=== PATIENT | female | born 1970 | race Caucasian/White ===

== ENCOUNTER 2018-03-01 10:02 | Day surgery (SDC) | payer OTHER, SELFPAY ==
[2018-03-01 10:26] VITALS: BP 158/89; PULSE 83; RESP 16; TEMP 36.9; O2SAT 96; BMI 36.0
[2018-03-01 10:32] LABS: Internal QC Validated? YES +Cl - CLEAR BKGD
[2018-03-01 10:35] LABS: Pregnancy, Urine Negative Negative
--- NOTE | 2018-03-01 11:15 | IMM_PTH ---
PATIENT: ANA MARIA MONTEJO LOC: EN U#:[id number] AGE/SX: 47/F ROOM: RE03/01/[address]: Dr. Maddy Dick MD : 1970 BED: DIS: 03/01/2018 SPEC #: [id number] RECD: 03/01/18 12:54 STATUS: ANNEL REQ #: [id number] THADDEUS: 03/01/18 11:[address]: Maddy Dick DEPT: IMMUNOHISTOCHEMISTRY RECD BY: Landy Zhu ENTERED: 03/01/18 12:54 SP TYPE: IMMUNO OTHR DR: DO Rosita Henry Tissues: A - Stomach, NOS Procedures: H Pylori (initial) PHYSICIAN & INSTITUTION [place] [id number] SPECIMEN INFORMATION: Tissue Source: A ? Antral biopsy Clinical Info: Constipation, blood in stool, GERD Specimen Number: [id number] CPT code: 09597 METHODOLOGY: Deparaffinized sections of prefer/formalin-fixed tissue or PAP/DQ stained slides are incubated with monoclonal/polyclonal antibodies/oligonucleotide probes. Localization is made via biotin free immunoperoxidase method. Appropriate controls are performed and reacted as expected. Results on target cell population are indicated in the following table: RESULTS: ANTIBODY / CLONE RESULT Block A H Pylori (polyclonal) negative These tests were developed and their performance characteristics determined by [facility]. They may not have been cleared or approved by the U.S. Food and Drug Administration. The FDA has determined that such clearance or approval is not necessary. INTERPRETATION: A. Antral biopsy: Negative for Helicobacter pylori organisms. AM:brenden 03/02/18
--- NOTE | 2018-03-01 11:15 | GASB_PTH ---
PATIENT: ANA MARIA MONTEJO LOC: EN U#:[id number] AGE/SX: 47/F ROOM: RE03/01/[address]: Dr. Maddy Dick MD : 1970 BED: DIS: 03/01/2018 SPEC #: [id number] RECD: 03/01/18 11:47 STATUS: ANNEL REAdelaida #: [id number] THADDEUS: 03/01/18 11:[address]: Maddy Dick DEPT: SURGICAL PATHOLOGY RECD BY: Faustino Rousseau ENTERED: 03/01/18 13:07 SP TYPE: Gastric Bx CLARISSA DR: Dr. Rosita Canas, DO Rosita Canas Tissues: A - Gastric mucous membrane B - Gastric mucous membrane Procedures: Surgery Specimen Level IV HEADER OPERATION: Colonoscopy, EGD PRE-OP DIAGNOSIS: Constipation, blood in stool, GERD TISSUE SUBMITTED: A ? Antral biopsy for H. pylori and path, B ? GE junction biopsy MICROSCOPIC DIAGNOSIS A. Gastric antrum, biopsy: Mild chronic gastritis. B. Gastroesophageal junction, biopsy: Fragment of gastric mucosa with mild chronic inflammation. AM:brenden 03/02/18 COMMENT A. The results of immunohistochemistry for Helicobacter pylori will be reported separately ([id number]). B. Squamous mucosa is not represented in the biopsy. Clinical correlation is suggested. MICROSCOPIC DESCRIPTION Slides are reviewed. GROSS DESCRIPTION A - Received in fixative is one container labeled with the patient's name and designated antral biopsy. The specimen consists of one irregular fragment of light calles soft tissue that measures 0.3 x 0.3 x 0.1 cm. The specimen is totally submitted in one cassette. B - Received in fixative is one container labeled with the patient's name and designated GE junction biopsy. The specimen consists of one irregular fragment of light calles soft tissue that measures 0.3 x 0.3 x 0.1 cm. The specimen is totally submitted in one cassette. / SJ:brenden 03/01/18 TC:3 [facility]: [id number] x2
[2018-03-01 11:27] VITALS: BP 113/69; BP 158/89; PULSE 72; RESP 16; TEMP 37.3; O2SAT 99
[2018-03-01 11:30] VITALS: BP 118/70; BP 158/89; PULSE 69; RESP 16; O2SAT 100
[2018-03-01 11:35] VITALS: BP 136/87; BP 158/89; PULSE 72; RESP 18; O2SAT 98
[2018-03-01 11:41] VITALS: BP 141/87; BP 158/89; PULSE 68; RESP 18; O2SAT 100
--- NOTE | 2018-03-01 11:50 | OP.PCM_ITS ---
Report of Operation Date of Procedure: 03/01/18 Pre-Operative Diagnosis: GERD, bright red blood per rectum, hemorrhoids Post-Operative Diagnosis: GERD/gastritis, large grade 4 internal hemorrhoid at left lateral cushion Surgery/Procedure Performed:: EGD with biopsy, colonoscopy Type of Anesthesia:: MAC Anesthesiologist: Oracio Rojas Specimen's removed: 1. Antral biopsy, 2. GE junction biopsy Estimated Blood Loss (mL): Minimal Description of Procedure: Procedure: EGD with biopsy After obtaining informed consent, the endoscope was passed under direct visualization. Throughout the procedure, patient's blood pressure, pulse, oxygen saturations were monitored continuously by anesthesia. The endoscope was introduced through the mouth and advanced to the 2nd part of the duodenum. The upper GI endoscopy was accomplished without difficulty. Patient tolerated procedure well. Findings: Mild erythematous mucosa found gastric antrum as well as mild change of mucosa at the GE junction. Biopsies were taken from both areas with cold biopsy for histology. Estimated blood loss was minimal. The duodenum was normal. Impression: 1. GERD 2. Gastritis- biopsied. 3. Normal examined duodenum Recommendations: Await biopsies Continue Nexium 40 mg p.o. daily prescription sent to [facility] Procedure: Colonoscopy After reviewing the risks benefits, the patient was deemed in satisfactory condition to undergo procedure. After obtaining informed consent, the scope was passed under direct visualization. Throughout the procedure, the patient's blood pressure pulse and position saturations were monitored continuously anesthesia. The colonoscope was introduced through the anus and advanced to the cecum, identified by the appendiceal orifice, IC valve and transillumination. The colonoscopy was performed without difficulty. The patient tolerated procedure well. Quality of bowel prep was good. Findings: The perianal and digital rectal exam revealed large by 2 x 3 cm grade 4 left lateral cushion internal hemorrhoid that appeared multi-polypoid. The colon (entire examined portion) appeared normal. Retroflexed view of the distal rectum and anal verge was normal and showed no anal or rectal abnormalities, as the internal hemorrhoid was a grade 4. Impression: 1. The entire colon is normal. 2. Large grade 4 left lateral cushion internal hemorrhoid that appears to be multipolypoid. Recommendations: Discussed with patient recommend hemorrhoidectomy patient is agreeable. Will call and schedule patient. Repeat colonoscopy in 10 years for screening purposes - Complications none
[2018-03-01 12:13] VITALS: BP 158/89
== END 2018-03-01 12:14 | disposition home or self-care (01) ==
LOC: EN 10:02 → AC 10:04
PROVIDERS: Family Provider Family Medicine; PCP Family Medicine; Visit Provider Surgery
PROC: 0DJD8ZZ Inspection of Lower Intestinal Tract, Via Natural or Artificial Opening Endoscopic (ICD-10-PCS; CPT 45378; principal; 2018-03-01 11:10)
DX: K29.50 Unspecified chronic gastritis without bleeding (principal); K64.8 Other hemorrhoids; K21.9 Gastro-esophageal reflux disease without esophagitis; K59.00 Constipation, unspecified; K62.5 Hemorrhage of anus and rectum; F32.9 Major depressive disorder, single episode, unspecified; F41.9 Anxiety disorder, unspecified; I10 Essential (primary) hypertension; F17.200 Nicotine dependence, unspecified, uncomplicated
CPT/HCPCS: 43239; 45378; 81025; 88305; 88342; J7120

== ENCOUNTER 2018-03-06 11:15 | Day surgery (SDC) | payer OTHER, SELFPAY ==
[2018-03-06] VITALS (7 sets, daily range): BP systolic 136–158; BP diastolic 74–96; PULSE 64–94; RESP 16; TEMP 36.4–37; O2SAT 96–100; BMI 36.6; BMI 34.0
[2018-03-06 11:59] LABS: Internal QC Validated? YES +Cl - CLEAR BKGD; Pregnancy, Urine Negative Negative
--- NOTE | 2018-03-06 12:33 | PCM.HP.STD ---
History of Present Illness Date of Admission: 03/06/18 The patient is a 47 year old F presents for exam under anesthesia and excision of anal lesion. Patient underwent EGD and colonoscopy 03/01 2018. EGD only showed some mild gastritis and colonoscopy was normal except for she did have large polypoid lesion protruding from her anus which appeared to be coming from her left lateral cushion it did appear to be multi-polypoid and there was also thrombosed hemorrhoid in the mix. Patient states she had this since about 2011 and states been about the same size she has had bleeding off and on with this especially with wiping however this December was worse where she had a larger amount of bleeding. She has not had any more recent large amounts of bleeding from this lesion. Patient states that pain at this site can get up to an 03/03 occasionally. Past Medical History Medical History: Medical History (Last Reviewed 02/03/18 @ 13:11 by Melody Dugan) Ectopic O00.90 HTN (hypertension) I10 Allergies morphine Adverse Reaction (Verified 03/03/18 16:40) Nausea/Vom/Diarrhea Home Medications: Ambulatory Orders Medication Instructions Recorded buspirone 10 mg tablet 10 mg PO BID 02/03/18 clonazepam 0.5 mg tablet 0.5 mg PO BID PRN 02/03/18 hydrochlorothiazide 25 mg tablet 25 mg PO QAM 02/03/18 Esomeprazole Mag Trihydrate 20 mg PO BID 02/27/18 [Nexium] Thrive Vitamin 1 patch TOPICAL DAILY 02/27/18 Surgical History: Surgical History (Last Reviewed 02/03/18 @ 13:11 by Melody Dugan) S/P laparoscopic cholecystectomy Z90.49 S/P tonsillectomy Z90.89 S/P wrist surgery Z98.890 Smoking Status: Current every day smoker Review of Systems Constitutional: Denies: Fever HEENT: Denies: Difficulty Swallowing Cardiovascular: Denies: Chest Pain Respiratory: Denies: Shortness of Breath, Shortness of breath at rest Gastrointestinal: Denies: Abdominal Pain, Vomiting Genitourinary: Denies: Dysuria VTE Information - Inpt Only VTE Present on Admission: Yes VTE Mechan Device Prophylaxis: SCD's VTE Pharm Prophylaxis ordered?: No Reason prophylaxis not ordered:: Treatment Not Indicated - Physical Exam General: Alert, Oriented x3, Cooperative, No apparent distress HEENT: Atraumatic, Normocephalic Lungs: Normal air movement Cardiovascular: Regular rate Abdomen: Soft, Non Tender - No guarding or peritoneal signs, Non-Distended, - - Rectal exam deferred Extremities: No clubbing, No cyanosis, No edema Vital Signs Temp Pulse Resp BP Pulse Ox 97.7 F L 74 16 155/93 H 100 03/06/18 11:41 03/06/18 11:41 03/06/18 11:41 03/06/18 11:41 03/06/18 11:41 Oxygen Delivery Method Room Air Weight: 240 lb 15.444 oz Body Mass Index (BMI) 36.6 Laboratory Tests Past 24 Hrs 03/06/18 11:30 Urine Test Negative Assessment/Plan 47-year-old female with large protruding multi-polypoid lesion that appears to be be arising from the left lateral hemorrhoidal cushion 1. Plan for exam under anesthesia and excision of anal lesion as this appears to be arising from hemorrhoidal cushion however it does not appear to be a typical internal hemorrhoid. Discussed the procedure along with risks including but not limited to bleeding, infection, stenosis of the anal canal, postoperative pain/discomfort, incontinence, and anesthesia. Patient and her no further questions at this time. Recommended postop sits baths 2-4 daily along with dibucaine ointment application. Maddy Dick M.D. Pager: [phone] [facility] [address] [place] [address], [facility], [address] [place] [address] Office: [phone]
--- NOTE | 2018-03-06 12:55 | PCM.DC.GS ---
Discharge Diet: Light diet - advance as tolerated Discharge Activity: May not drive while taking narcotic pain medications. Call your doctor if your incision/area has: Continuous Slow Oozing, Sudden Increased Bleeding, Increased Pain/ Swelling, Increased Redness, Foul Smelling Discharge, Swelling at the incision site Call your doctor if you observe: Fever of 101 or Higher Additional Instructions: Okay to take ibuprofen along with the Percocet. Avoid Tylenol since there is artery Tylenol in the Percocet. Percocet can cause constipation recommend taking daily stool softener i.e. Colace while taking the pain meds. Recommend starting some MiraLAX today if no bowel movement. Recommend taking sitz baths 2-4 times daily especially after bowel movements also applying the dibucaine ointment to the anal area as needed 2-4 times a day Allergies/Adverse Reactions: Allergies morphine Adverse Reaction (Verified 03/03/18 16:40) Nausea/Vom/Diarrhea Medications to take at Discharge buspirone 10 mg tablet 10 mg PO BID 02/03/18 clonazepam 0.5 mg tablet 0.5 mg PO BID PRN 02/03/18 hydrochlorothiazide 25 mg tablet 25 mg PO QAM 02/03/18 Esomeprazole Mag Trihydrate [Nexium] 20 mg PO BID 02/27/18 Thrive Vitamin 1 patch TOPICAL DAILY 02/27/18 Oxycodone HCl/Acetaminophen [Percocet 5/325] 1 - 2 tablet PO Q6H PRN PRN 5 Days #40 tablet 03/06/18 The following prescriptions were given: Oxycodone HCl/Acetaminophen [Percocet 5/325] 1 - 2 tablet PO Q6H PRN PRN 5 Days #40 tablet PRN Reason: Pain Primary Care Physician: Rosita Canas DO [Primary Care Provider] - Test Results: Test results from this visit will be discussed in further detail at your follow-up appointment, if applicable. Please Follow Up With: Maddy Dick MD - After 5:00/weekends call [phone] with any concerns When: Call the office for a follow-up appointment in 2-3 weeks. Proposed Discharge Date: 03/06/18
--- NOTE | 2018-03-06 13:00 | LES_PTH ---
PATIENT: ANA MARIA MONTEJO LOC: [facility] U#:[id number] AGE/SX: 47/F ROOM: RE03/06/[address]: Dr. Maddy Dick MD : 1970 BED: DIS: 03/06/2018 SPEC #: [id number] RECD: 03/06/18 14:43 STATUS: ANNEL REAdelaida #: [id number] THADDEUS: 03/06/18 13:[address]: Maddy Dick DEPT: SURGICAL PATHOLOGY RECD BY: Willy Leonard ENTERED: 03/07/18 06:52 SP TYPE: Lesion OTHR DR: Dr. Rosita Canas, DO Rosita Canas Tissues: A - Skin of anus B - Skin appendage, NOS Procedures: Surgery Specimen Level III Surgery Specimen Level IV HEADER OPERATION: Rectal exam under anesthesia, excision of anal lesion PRE-OP DIAGNOSIS: Anal lesion TISSUE SUBMITTED: A ? Anal lesion, stitch toledo stalk, B ? Anal tag MICROSCOPIC DIAGNOSIS A. Anal lesion, excision: Benign fibroepithelial polyp with reactive change, hyperkeratosis and mild chronic inflammation. Focal ulceration with associated acute and chronic inflammation and granulation. B. Anal tag, excision: Benign fibroepithelial polyp with minimal inflammation. AM:brenden 03/08/18 COMMENT Case has been reviewed in consultation with Dr. Singh who concurs with the above diagnosis. IDC:SJ MICROSCOPIC DESCRIPTION Slides are reviewed. GROSS DESCRIPTION A - Received in fixative is one container labeled with the patient's name and designated anal lesion. The specimen consists of a polypoid piece of calles-white skin measuring 3.5 x 3 x 2.5 cm. A suture is present marking stalk. The base of the stalk is inked black. The specimen is serially sectioned and submitted entirely in seven cassettes. Cassettes 1-3 contain the portion of the lesion including the stalk. B - Received in fixative is one container labeled with the patient's name and designated anal tag. The specimen consists of a polypoid piece of calles-white skin measuring 1 x 0.5 x 0.2 cm. The specimen is inked and submitted entirely in one cassette. / MICHAEL:brenden 03/07/18 TC:1 CPT: 87034, 19893
[2018-03-06] MEDS: Bupiv/Epi 0.5% Mpf 30 ML Vial (13:33)
[2018-03-06] MEDS: Lubricating Jelly 60 GM Tube 30 GM TOPICAL (13:33)
[2018-03-06] MEDS: Dibucaine 30 GM Tube 1 APPLIC (13:50)
--- NOTE | 2018-03-06 13:52 | PCM.OPRPT ---
Report of Operation Date of Procedure: 03/06/18 Pre-Operative Diagnosis: Anal lesion protruding from hemorrhoidal LL (posterior) cushion Post-Operative Diagnosis: Same Surgery/Procedure Performed:: Exam under anesthesia, excision of anal lesion and anal skin tag Type of Anesthesia:: MAC Anesthesiologist: Ilir Escamilla Specimen's removed: 1 Anal lesion, 2 anal skin tag Estimated Blood Loss (mL): 10 cc Fluids Replaced: 600cc Description of Procedure: The patient was brought into the operating room and general anesthesia was induced. She was placed in prone jackknife lithotomy position. A timeout was completed verifying correct patient, procedure, site, mposition, and special equipment prior to beginning the procedure. The buttocks were taped apart. Perineum was prepared prepped and draped in standard sterile fashion. Local anesthesia was injected as a perianal nerve block-0.5% Marcaine with epi total of 20 mL. Anus carefully dilated. Small Hill-Gar retractor was introduced and 3 marginal pedicles identified. She was noted to have prolapsed anal lesion looks to be coming from possible left lateral cushion a little bit more posterior at 12:00. Each the pedicle of this lesion was excised. 2-0 chromic suture was placed at the base of the pedicles and retracted externally to exteriorize the hemorrhoidal pedicles. An elliptical incision was made extending from perianal skin to anal rectal ring including both internal and external hemorrhoids and excising a minimal amount of anoderm. Cautery was used to separate the hemorrhoid from the underlying tissue. Careful not to involve any of the sphincter muscle. The pedicle was indicated from the base and sent to pathology. Hemostasis was achieved using electrocautery. following the hemostasis the skin and mucosal incisions were closed with the running lock stitch of 2-0 chromic. Anal lesion was multi-polypoid measuring 3.5 cm x 2.5 cm x 2 cm. An additional anal tag at about 11:00 (posterior on the left) was also taken with the cut on electrocautery. A small Surgifoam with dibucaine was placed in the anus. A gauze pad tucked between the gluteal folds. The patient was extubated. And the patient tolerated procedure well and was extubated and taken to the postanesthesia care unit in stable condition. - Complications none
--- NOTE | 2018-03-06 21:47 | PCM.PN.BLA ---
Progress Note 47-year-old female presented to the ER status post excision of anal lesion and anal skin tag due to tripping blood from rectum. Patient thought that a stitch may have also came out. Patient denies much pain after surgery it is tolerable with only ibuprofen and she has been taking stool softeners. Patient had a nap and when she awoke at 8 PM and went to urinate she did have blood that was dripping in the toilet, dark red. On exam patient's anal lesion excision site was intact and the Surgifoam was still in place however distal to that was the site of the anal skin tag which had a dried clot on it no active bleeding at this time. The area was cleaned with Betadine and 2 simple interrupted sutures of 3-0 chromic were placed over the area of the anal skin tag after local anesthesia of 2 cc of lidocaine 1%. Patient tolerated procedure well and left the ER and stable condition. Patient will follow-up as planned in 2-3 weeks postoperatively. Patient and her had no further questions at this time. Maddy Dick M.D. Pager: [phone] [facility] [address] [place] [address], [address] [place] [address] Office: [phone]
--- NOTE | 2018-03-06 21:50 | PN_ITS ---
Progress Note 47-year-old female presented to the ER status post excision of anal lesion and anal skin tag due to tripping blood from rectum. Patient thought that a stitch may have also came out. Patient denies much pain after surgery it is tolerable with only ibuprofen and she has been taking stool softeners. Patient had a nap and when she awoke at 8 PM and went to urinate she did have blood that was dripping in the toilet, dark red. On exam patient's anal lesion excision site was intact and the Surgifoam was still in place however distal to that was the site of the anal skin tag which had a dried clot on it no active bleeding at this time. The area was cleaned with Betadine and 2 simple interrupted sutures of 3-0 chromic were placed over the area of the anal skin tag after local anesthesia of 2 cc of lidocaine 1%. Patient tolerated procedure well and left the ER and stable condition. Patient will follow-up as planned in 2-3 weeks postoperatively. Patient and her had no further questions at this time. Maddy Dick M.D. Pager: [phone] [facility] [address] [place] [address], [address] [place] [address] Office: [phone]
== END 2018-03-06 15:28 | disposition home or self-care (01) ==
LOC: SDC 11:16 → AC 11:17
PROVIDERS: Family Provider Family Medicine; PCP Family Medicine; Visit Provider Surgery
PROC: (CPT 45990; principal; 2018-03-06 12:45)
DX: K62.0 Anal polyp (principal); K64.8 Other hemorrhoids; L85.9 Epidermal thickening, unspecified; K21.9 Gastro-esophageal reflux disease without esophagitis; F32.9 Major depressive disorder, single episode, unspecified; F41.9 Anxiety disorder, unspecified; I10 Essential (primary) hypertension; F17.200 Nicotine dependence, unspecified, uncomplicated; Z79.899 Other long term (current) drug therapy
CPT/HCPCS: 45990; 46260; 81025; 88304; 88305; J7120

== ENCOUNTER → 2018-05-10 13:46 | Outpatient (CLI) | payer OTHER, SELFPAY ==
--- NOTE | 2018-05-10 13:55 | US_ITS ---
STUDY: ULTRASOUND TRANSVAGINAL CLINICAL: Female, 47 years old. Irregular menses. Heavy periods TECHNIQUE: Transabdominal and Transvaginal # of Images: 53 COMPARISON: None. FINDINGS: Normal uterine size measuring 9.3 x 5.8 x 4.1 cm in maximal craniocaudal dimension. There are no myometrial masses. However the uterus is heterogeneous which can be seen with diffuse leiomyomatous change. The uterus is retroverted. Normal endometrial thickness measuring 10 mm. Endometrial echoes are hypoechoic. There are no endometrial masses, and there is no fluid in the endometrial cavity. Nabothian cysts of the uterine cervix. Normal right ovary, measuring 2.8 x 2.6 x 2.6 cm. There is a 1.7 cm cyst. Normal left ovary, measuring 3.4 x 3.0 x 2.3 cm. There is a 2.2 cm cyst. There is no free fluid in the pelvis. Normal bladder contour with a volume of 116 cc. US/Pelvic (Non ) IMPRESSION: Heterogeneous uterus, cannot exclude diffuse leiomyomatous change and no focal fibroids are seen and no other significant findings. Electronically Signed: Neville Wall MD at 14:36 EDT , Service support ,
--- NOTE | 2018-05-10 14:01 | US_ITS ---
STUDY: ULTRASOUND TRANSVAGINAL CLINICAL: Female, 47 years old. Irregular menses. Heavy periods TECHNIQUE: Transabdominal and Transvaginal # of Images: 53 COMPARISON: None. FINDINGS: Normal uterine size measuring 9.3 x 5.8 x 4.1 cm in maximal craniocaudal dimension. There are no myometrial masses. However the uterus is heterogeneous which can be seen with diffuse leiomyomatous change. The uterus is retroverted. Normal endometrial thickness measuring 10 mm. Endometrial echoes are hypoechoic. There are no endometrial masses, and there is no fluid in the endometrial cavity. Nabothian cysts of the uterine cervix. Normal right ovary, measuring 2.8 x 2.6 x 2.6 cm. There is a 1.7 cm cyst. Normal left ovary, measuring 3.4 x 3.0 x 2.3 cm. There is a 2.2 cm cyst. There is no free fluid in the pelvis. Normal bladder contour with a volume of 116 cc. US/Transvaginal Non- IMPRESSION: Heterogeneous uterus, cannot exclude diffuse leiomyomatous change and no focal fibroids are seen and no other significant findings. Electronically Signed: Neville Wall MD at 14:36 EDT , Service support ,
[2018-05-10 15:39] LABS: Absolute Lymphocyte Count 3.08 X10^3/ul (0.83-4.51); Basophil# 0.05 X10^3/uL; Basophil% 0.5 % (0-1); Eosinophil# 0.28 X10^3/uL; Eosinophils% 2.8 % (0-5); Hematocrit 33.8 % (37-47); Hemoglobin 10.6 g/dl (12.0-15.0); Lymphocyte # 3.08 X10^3/ul (4.0); Lymphocyte % 30.5 % (19-41); Mean Corp Hgb Conc 31.4 g/gl (32-36); Mean Corpuscular Hgb 26.8 pg (27.0-32.0); Mean Corpuscular Volume 85.4 fL (81-99); Mean Platelet Vol. 9.8 fl (6.2-12.0); Monocyte# 0.65 X10^3/uL; Monocyte% 6.4 % (0-10); Neutrophil # 6.03 X10^3/uL (2.7-7.7); Neutrophil % 59.7 % (47-70); Platelet Count 401 K/mm3 (150-450); RBC Distribution Width CV 15.1 % (11.6-14.6); RBC Distribution Width SD 45.9 fl (35.1-43.9); Red Blood Count 3.96 M/mm3 (4.2-5.4); White Blood Count 10.1 K/mm3 (4.4-11.0)
[2018-05-10 15:55] LABS: POSITIVE COUNT NO; POSITIVE DIFFERENTIAL NO; POSITIVE MORPHOLOGY NO
== END ==
PROVIDERS: Family Provider Family Medicine; PCP Family Medicine; Referring Provider Family Medicine; Visit Provider Family Medicine
DX: N92.1 Excessive and frequent menstruation with irregular cycle (principal)
CPT/HCPCS: 36415; 76830; 76856; 85025; 93976

== ENCOUNTER → 2018-05-11 14:36 | Outpatient (CLI) | payer OTHER, SELFPAY ==
--- NOTE | 2018-05-11 14:36 | EMB_PTH ---
PATIENT: ANA MARIA MONTEJO LOC: [facility] U#:[id number] AGE/SX: 55/F ROOM: RE05/11/[address]: KIRAN Hernandez : 1970 BED: DIS: SPEC #: [id number] RECD: 05/11/18 16:55 STATUS: ANNEL SHELBIE #: [id number] THADDEUS: 05/11/18 14:[address]: Camryn Chaidez NP DEPT: SURGICAL PATHOLOGY RECD BY: Faustino Rousseau ENTERED: 05/12/18 11:06 SP TYPE: ENDOJoseph BX/C CLARISSA DR: DO Rosita Henry Tissues: Endometrium, NOS Procedures: Surgery Specimen Level IV HEADER OPERATION: Endometrial biopsy PRE-OP DIAGNOSIS: Abnormal uterine bleeding TISSUE SUBMITTED: Endometrial lining MICROSCOPIC DIAGNOSIS Endometrial biopsy: Proliferative endometrium. SJ:brenden 05/15/18 MICROSCOPIC DESCRIPTION Slides are reviewed. GROSS DESCRIPTION Received is one container labeled with the patient's name and not further designated. The specimen consists of multiple irregular fragments of calles-pink soft tissue that in aggregate measure 3 x 2.5 x 0.3 cm. The specimen is totally submitted in one cassette. / SJ:brenden 05/12/18 TC:4 CPT: 73935
== END ==
PROVIDERS: Family Provider Family Medicine; PCP Family Medicine; Referring Provider Nurse Practitioner Women's Health; Visit Provider Nurse Practitioner Women's Health
DX: N93.9 Abnormal uterine and vaginal bleeding, unspecified (principal)
CPT/HCPCS: 88305

== ENCOUNTER → 2018-05-16 16:22 | Outpatient (CLI) | payer OTHER, SELFPAY | PROVIDERS: Visit Provider Family Medicine | DX: R30.0 Dysuria (principal) | CPT/HCPCS: 87086; 87088; 87186 ==

== ENCOUNTER → 2018-07-26 10:46 | Outpatient (CLI) | payer OTHER, SELFPAY ==
[2018-07-03 10:07] VITALS: BMI 36.2
--- NOTE | 2018-07-26 10:49 | US_ITS ---
STUDY: RENAL ULTRASOUND - COMPLETE REASON FOR EXAM: Female, 48 years old. Urinary tract infection TECHNIQUE: Ultrasound evaluation of the kidneys was performed with real-time and static weber-scale imaging. COMPARISON: None. FINDINGS: RIGHT KIDNEY: Normal location of the right kidney, which is normal in size. The right kidney measures 11 x 5.3 x 6.3 cm. There is a normal cortex of the right kidney. The renal cortex measures 1.6 cm. There is no right renal mass or cyst. There are no right renal calculi. There is no right hydronephrosis. DISTAL RIGHT URETER: There is non-visualization of the distal right ureter. There is no demonstrated right ureterovesical junction calculus. There is a visualized right ureteral jet. LEFT KIDNEY: Normal location of the left kidney, which is normal in size. The left kidney measures 10.7 x 5.8 x 5.8 cm. There is a normal cortex of the left kidney. The renal cortex measures 1.5 cm. There is no left renal mass or cyst. There are no left renal calculi. There is no left hydronephrosis. DISTAL LEFT URETER: There is non-visualization of the distal left ureter. There is no demonstrated left ureterovesical junction calculus. There is a visualized left ureteral jet. AORTA: Not identified. I.V.C.: The IVC is patent. BLADDER: Normal. There is an incidental 2 cm cyst in the RIGHT ovary. US/Kidney and Bladder IMPRESSION: Normal ultrasound of the kidneys and urinary bladder. Electronically Signed: Juan Hightower MD at 5:41 EST , Service support ,
== END ==
PROVIDERS: Family Provider Family Medicine; PCP Family Medicine; Referring Provider Urology; Visit Provider Urology
DX: N39.0 Urinary tract infection, site not specified (principal)
CPT/HCPCS: 76770

== ENCOUNTER 2018-08-17 06:41 | Day surgery (SDC) | payer OTHER, SELFPAY ==
[2018-07-03 10:07] VITALS: BMI 36.2
[2018-08-07 10:05] VITALS: BMI 36.2
--- NOTE | 2018-08-14 09:17 | EKG12_ITS ---
Test Reason : PREOP Blood Pressure : / mmHG Vent. Rate : 075 BPM Atrial Rate : 075 BPM P-R Int : 138 ms QRS Dur : 076 ms QT Int : 398 ms P-R-T Axes : 060 013 024 degrees QTc Int : 444 ms Normal sinus rhythm Normal ECG Confirmed by AMERICA DUTTON MD ([id number]), online editor CODY KRAUSE ([id number]) on 08/15/2018 12:53:46 PM Referred By: Fina Stockton Confirmed By:AMERICA DUTTON MD
[2018-08-14 09:52] LABS: Hematocrit 38.5 % (37-47); Hemoglobin 12.3 g/dl (12.0-15.0); Mean Corp Hgb Conc 31.9 g/gl (32-36); Mean Corpuscular Hgb 28.5 pg (27.0-32.0); Mean Corpuscular Volume 89.1 fL (81-99); Mean Platelet Vol. 10.1 fl (6.2-12.0); Platelet Count 343 K/mm3 (150-450); RBC Distribution Width CV 16.2 % (11.6-14.6); RBC Distribution Width SD 52.5 fl (35.1-43.9); Red Blood Count 4.32 M/mm3 (4.2-5.4); White Blood Count 7.3 K/mm3 (4.4-11.0)
[2018-08-14 09:55] LABS: Scan Indicated on CBC? Y/N NO
[2018-08-14 10:22] LABS: Anion Gap 9 (5-15); BUN 18 mg/dL (7-18); BUN/Creat Ratio 16.8 RATIO (10-20); Chloride 106 mmol/L (98-107); Creatinine, Serum 1.07 mg/dL (0.55-1.02); EST Glomerular Filtration Rate 58 mL/min (>60); Est Glom Filt Rate - Afr Amer 70 mL/min (>60); Glucose 96 mg/dL (74-106); Potassium 3.5 mmol/L (3.5-5.1); Sodium Level 140 mmol/L (136-145)
[2018-08-17] VITALS (12 sets, daily range): BP systolic 95–152; BP diastolic 58–97; PULSE 62–98; RESP 16–18; TEMP 36.2–36.9; O2SAT 94–99; BMI 38.0
--- NOTE | 2018-08-17 | HYST_PTH ---
PATIENT: ANA MARIA MONTEJO LOC: [facility] [place] U#:[id number] AGE/SX: 48/F ROOM: RE08/17/[address]: Dr. Fina Stockton MD : [id number] BED: DIS: 08/18/2018 SPEC #: [id number] RECD: 08/17/18 15:03 STATUS: ANNEL SHELBIE #: [id number] THADDEUS: 08/17/18 00:[address]: Fina Stockton DEPT: SURGICAL PATHOLOGY RECD BY: David Pike ENTERED: 08/17/18 15:03 SP TYPE: HYSTERECT OTHR DR: Dr. Rosita Canas, DO Tissues: Uterus, NOS Procedures: Surgery Specimen Level V HEADER OPERATION: ERAS, vaginal hysterectomy, right salpingectomy PRE-OP DIAGNOSIS: Abnormal uterine bleeding TISSUE SUBMITTED: Uterus and right fallopian tube MICROSCOPIC DIAGNOSIS Uterus, hysterectomy: Cervix - nabothian cysts and mild chronic inflammation. Endometrium - proliferative endometrium. Myometrium - adenomyosis. Right fallopian tube - no pathologic change. AM:brenden 08/18/18 MICROSCOPIC DESCRIPTION Slides are reviewed. GROSS DESCRIPTION Received in fixative is one container labeled with the patient's name and designated uterus. The specimen consists of a uterus with attached cervix and one detached fallopian tube free in the container. The uterus with cervix measures 10 x 5.5 x 4 cm and weighs 93 gm. The ectocervix is unremarkable. The cervical os is round in contour. The endocervical canal measures 3.7 cm in length and is grossly unremarkable. The triangular endometrial cavity measures 5 x 3.8 cm. The velvety, light calles endometrium measures up to 0.3 cm in thickness. No mass lesions are identified. The myometrium measures 2 cm in average thickness and is free of mass lesions. The fallopian tube free in container measures 6 cm in length and 0.8 cm in average diameter. A normal fimbrial end is present. Brazing Machine Setter sections are submitted in seven cassettes as follows: 1 - anterior cervix, 2 - posterior cervix, 3 & 4 - anterior uterine wall, 5 & 6 - posterior uterine wall, 7 - fallopian tube. / AM:brenden 08/17/18 TC:5 CPT: 16210
--- NOTE | 2018-08-17 05:35 | PCM.HPOB.BLA ---
- Problem List (1) Abnormal uterine bleeding Status: Acute Comment: plan urogyn cs for DARRION, plan tvh bs for AUB. ERAS History and Physical Date of Admission: 08/17/18 Vital Signs 08/07/18 Body Mass Index (BMI) 36.2 08/07/18 Height 5 ft 8 in 08/07/18 Weight: 250 lb 08/07/18 Body Mass Index (BMI) 38.0 08/07/18 Blood Pressure 138/100 H Intake Visit Reasons: Pre-op for surgery/SOAP Chief Complaint: pre-op appt Bending Frame Operator Required: No Is patient in pain?: No Allergies morphine Adverse Reaction (Verified 08/07/18 10:03) Nausea/Vom/Diarrhea Medications buspirone 10 mg tablet 10 mg PO BID 02/03/18 [History Confirmed 08/07/18] clonazepam 0.5 mg tablet 0.5 mg PO BID PRN 02/03/18 [History Confirmed 08/07/18] hydrochlorothiazide 25 mg tablet 25 mg PO QAM 02/03/18 [History Confirmed 08/07/18] Is last menstrual period known: No Post menopausal: No Patient : No : No [facility] Medical History Ectopic (Acute) HTN (hypertension) (Chronic) Surgical History History of laparotomy (Acute) H/O hemorrhoidectomy (Acute) S/P laparoscopic cholecystectomy (Acute) S/P tonsillectomy (Acute) S/P wrist surgery (Acute) Family History Mother Asthma Breast cancer Cancer Diabetes Heart disease Hypertension Kidney disease Social History Smoking Status: Current every day smoker alcohol intake: current alcohol intake frequency: holidays/special occasions only details: social substance use type: does not use caffeine: Yes what type of physical activity do you participate in: walking seatbelt use: always do you feel safe at home: Yes HPI Pre-op for surgery/SOAP: Details: ANA MARIA MONTEJO is a 48 year old who presents for preop appointment regarding TVH BS and combo case with Dr Gramajo. Female Reproductive History Cycle Length: 21-35 Bleeding Duration: 7 Pregancy History 8 Elective abortions Hx Para Spontaneous abortions 4 Hx # Term Pregnancies 1 Ectopic pregnancies 3 Hx # Pregnancies Multiple births # of living children 1 Past Pregnancies Del. Date Name GA/Weeks Outcome Route Bth Weight Infant Gen Labor Lgth Anesthesia Del Locatn Provider FOB Unknown Jonathan1990 ROS Const Constitutional: Denies poor appetite, headache(s), fever(s), increased appetite, weight gain, weight loss or fatigue Cardio Card: Denies chest pain Resp Resp: Denies dyspnea or cough GI GI: Reports as per HPI; denies vomiting, nausea, abdominal pain or constipation : Reports as per HPI; denies urinary urgency, vaginal discharge, urinary frequency, vaginal itching, vaginal odor, vaginal dryness, urinary incontinence, urinary hesitancy, difficulty urinating, painful urination or nipple discharge Skin Skin/Breast: Denies breast lump, breast pain, breast skin changes, nipple discharge or change in hair Exam Const General: cooperative, healthy appearing, comfortable, no acute distress, well developed Orientation: alert HENMT Head: normal to inspection, normocephalic Neck Neck: normal visual inspection, trachea midline Thyroid: thyroid normal Resp Effort & Inspection: normal respiratory effort GI Inspection: normal to inspection, non-distended Palpation: soft, no hepatosplenomegaly General: bladder normal to palpation External Female Exam: normal external appearance, normal appearance of the urethra Urethra: normal appearance of the urethra, normal palpation, no discharge Speculum Exam - Vagina: normal appearance of the vagina, normal vaginal discharge Speculum Exam - Cervix: normal appearance of the cervix, nontender Bimanual Exam- Vagina & Uterus: bladder normal to palpation, No cervical tenderness, normal bimanual exam, uterine size normal, uterine shape normal, uterine mobility normal, uterine consistency normal, normal cervical palpation, uterus non-tender Bimanual Exam- Adnexa, other: normal adnexae, adnexae mobile, no adnexal masses, pelvic support normal Pelvic Support: normal Skin General: no rashes or lesions noted Assessment & Plan Problems 1. Abnormal uterine bleeding N93.9 plan urogyn cs for DARRION, plan tvh bs for AUB. ERAS Plan discussed surgical risks including risks of anesthesia, infection, bleeding, injury to bowel, bladder or blood vessels, and patient wishes to proceed with surgery. Coding Level of Care Code No Charge Diagnoses Abnormal uterine bleeding N93.9 UPDATE- I have seen the patient and performed any clinically relevant updates to the history and physical exam. Fina Stockton MD
[2018-08-17 07:19] LABS: Internal QC Validated? YES +Cl - CLEAR BKGD; Pregnancy, Urine Negative Negative
[2018-08-17] MEDS: Gabapentin 600 MG Tablet PO (07:36)
[2018-08-17] MEDS: Acetaminophen 500 MG Tablet 1000 MG PO ×3 (07:37→23:17)
[2018-08-17] MEDS: Celecoxib 200 MG Capsule 400 MG PO (07:37)
[2018-08-17] MEDS: Phenazopyridine 95 MG Tablet 190 MG PO (07:37)
[2018-08-17] MEDS: Scopolamine 1mg/72hr Patch 1 PATCH TRANSDERM. (07:38)
[2018-08-17] MEDS: Enoxaparin 40 MG/0.4 ML Syringe SC (07:40)
[2018-08-17] MEDS: Magnesium Sulfate 4gm/100mL 4 GM/100 ML IV.SOLN. IV (07:56)
[2018-08-17 08:01] LABS: Bedside Glucose 98 mg/dL (70-110)
[2018-08-17] MEDS: Lactated Ringers 1,000 ML 100 ML IV (09:00)
[2018-08-17] MEDS: Vasopressin 20 UNITS/ML Vial (10:15)
--- NOTE | 2018-08-17 10:54 | PCM.OPRPT ---
Problem List (1) Abnormal uterine bleeding Status: Acute Comment: plan urogyn cs for DARRION, plan tvh bs for AUB. ERAS Report of Operation Date of Procedure: 08/17/18 Pre-Operative Diagnosis: aub Post-Operative Diagnosis: same Surgery/Procedure Performed:: tvh rs Description of Surgical Findings:: normal uterus right tube medical genetics director: Zenobia Guaman Type of Anesthesia:: General Special Medications: none Specimen's removed: uterus tube Drains: sheffield Estimated Blood Loss (mL): 100 Fluids Replaced: crystalloid Description of Procedure: Patient was taken to the operating room and was placed under general anesthesia was prepped and draped in normal sterile fashion in the dorsal lithotomy position. Preoperative antibiotics and SCDs and Sheffield catheter was placed inside the bladder. Weighted speculum was placed in the vagina and the anterior and posterior lip of the cervix was grasped with 2 Leo clamps and circumferentially injected with dilute vasopressin. A circumferential incision was made with a scalpel and the posterior cul-de-sac was entered into sharply and a longneck speculum was placed. The anterior cul-de-sac was also dissected down and entered into sharply and the uterosacral ligaments were clamped cut and suture ligated bilaterally followed by the cardinal ligaments which were Clamped cut and suture ligated bilaterally with 0 Monocryl. The uterus serially descended and progressive bites were taken bilaterally up to the level of the utero-ovarian ligament bilaterally which was clamped transected and double ligated with 0 Monocryl suture and 0 Vicryl free tie. Bilateral fallopian tubes and ovaries were well visualized and noted be within normal limits and the bilateral fallopian tubes were transected across the base with a Ami clamp and removed and sutured with 0 Vicryl suture. Excellent hemostasis was noted. The vagina was closed with [id number] 0 Vicryl pop offs including the posterior and anterior peritoneum in the reapproximation. Excellent hemostasis was noted. All instruments removed from the vagina clear urine was noted at the end of the procedure and patient was awoken and taken recovery in stable condition. Grafts/Implants Used: none - Complications none - Admit VTE Documentation VTE Present on Admission: No
--- NOTE | 2018-08-17 11:00 | DCINST_ITS ---
Discharge Diet: No Restrictions Discharge Activity: Return to Normal Activity, May not drive while taking narcotic pain medications., May Shower May resume sexual activity in: 4-6 weeks Call your doctor if your incision/area has: Continuous Slow Oozing, Sudden Increased Bleeding, Increased Pain/ Swelling, Increased Redness, Foul Smelling Discharge Additional Instructions: If you experience any of the following, contact your healthcare provider. * Bleeding that soaks a pad every hour for 2 hours * Fever 100.4 or higher * Unrelieved incision or abdominal pain * Swelling, redness, discharge or bleeding from your incision or episiotomy site * Your incision begins to separate * Problems urinating (including inability to urinate or burning while urinating). * Visual changes * Severe headache * Flu-like symptoms * Pain or redness in one of both of your breasts * Pain, warmth, tenderness or swelling in your legs, especially the calf area * Frequent nausea and vomiting * Symptoms of depression or anxiety If you experience any of the following, call 911 or go to the nearest Emergency Room. * Chest pain * Problems breathing * Seizure activity * Partial or complete paralysis of a body part, slurred speech, weakness or drooping of the face, or a sudden inability to walk or hold your balance Allergies/Adverse Reactions: Allergies morphine Adverse Reaction (Verified 08/10/18 09:02) Nausea/Vom/Diarrhea Medications to take at Discharge buspirone 10 mg tablet 10 mg PO BID 02/03/18 clonazepam 0.5 mg tablet 0.5 mg PO BID PRN 02/03/18 hydrochlorothiazide 25 mg tablet 25 mg PO QAM 02/03/18 Ferrous Fumarate 89 mg PO DAILY 08/10/18 Multivitamin [Daily Multiple Vitamin] 1 each PO DAILY 08/10/18 Omeprazole 40 mg PO DAILY 08/10/18 Naproxen [Naprosyn] 250 - 500 mg PO Q8H PRN PRN #30 tablet 08/17/18 Oxycodone HCl/Acetaminophen [Percocet 5-325] 1 - 2 tablet PO Q4H PRN PRN 7 Days #15 tablet 08/17/18 The following prescriptions were given: Oxycodone HCl/Acetaminophen [Percocet 5-325] 1 - 2 tablet PO Q4H PRN PRN 7 Days #15 tablet PRN Reason: Pain Naproxen [Naprosyn] 250 - 500 mg PO Q8H PRN PRN #30 tablet PRN Reason: MILD PAIN Orders to be completed after discharge: Type & Screen Time Frame: 08/10/18, Facility: [facility], Location: Laboratory 12 Lead EKG [[facility]] Time Frame: 08/10/18, Facility: [facility], Location: Cardiovascular Services Basic Metabolic Profile (BMP) Time Frame: 08/10/18, Location: Laboratory CBC-Complete Blood Cnt No Diff Time Frame: 08/10/18, Location: Laboratory ,Urine Time Frame: 08/17/18, Location: Laboratory Please Follow Up With: Fina Stockton MD - [phone] When: Call to make an appointment with your doctor in 6 weeks. If you had elevated Blood pressure or 4th degree laceration you will need to be seen in 2 weeks. Primary Care Physician: Rosita Canas DO [Primary Care Provider] - Test Results: Test results from this visit will be discussed in further detail at your follow- up appointment, if applicable.
[2018-08-17 11:15] LABS: Bedside Glucose 153 mg/dL (70-110)
--- NOTE | 2018-08-17 13:42 | NURSING ---
pt chewing gum, denies nausea-taking po fluids well
[2018-08-17] MEDS: Ketorolac 30 MG/ML Syringe IV ×2 (15:46→21:06)
[2018-08-17] MEDS: oxyCODONE 5 MG Tablet PO (17:50)
[2018-08-17] MEDS: Lactated Ringers 1,000 ML 125 ML IV (17:51)
--- NOTE | 2018-08-17 19:46 | PCM.PN.OB ---
Subjective: Notified by RN that patient with peripad 50% saturated x 2, the last over 2 hours and concern and for genital laceration. On arrival patient reports feeling well, denies nausea, vomiting, lightheadedness, palpitations. She reports crampy lower abdominal pain like menstrual cramps, but otherwise feels well. Objective: AVSS - Physical Exam General: Alert, Oriented x3, Cooperative, No apparent distress HEENT: Atraumatic, Normocephalic Abdomen: Soft, Non Tender, Non-Distended Neurological: Neuro grossly intact Psych/Mental Status: Normal Affect, Appropriate Vital Signs Temp Pulse Resp BP Pulse Ox 98.0 F 98 18 133/81 H 96 08/17/18 17:04 08/17/18 17:04 08/17/18 17:04 08/17/18 17:04 08/17/18 17:04 Oxygen Flow Rate (L/min) 6 Oxygen Delivery Method Room Air Weight: 116.9 kg Body Mass Index (BMI) 38.0 Intake and Output for Last 24 Hours 08/15/18 08/16/18 08/17/18 23:59 23:59 23:59 Intake Total 2866 / 2866 Output Total 770 / 770 Balance 2096 / 2096 Laboratory Tests Past 24 Hrs 08/17/18 07:00 Urine Test Negative POC Glucose 08/17/18 08/17/18 11:11 07:54 POC Glucose 153 H 98 Medical Necessity - Tobacco Use Smoking Status: Current every day smoker Tobacco Use: Cigarettes Assessment/Plan All Active Problems (Last Reviewed 08/07/18 @ 10:04 by Yu Manjarrez) Abnormal uterine bleeding (Acute) 48yo s/p TVH, BS with R. labial laceration -Vulvar exam performed with superficial R. labial laceration approximately 3cm with clot adhered. No active bleed on exam and no blood extruding from vagina. -Plan cool compress and avoid clot removal. -Patient reassured -Will continue to assess pad count. Consider lidocaine injection with suture placement if persists. -Routine postop care
[2018-08-17] MEDS: clonazePAM 0.5 MG Tablet PO (20:01)
[2018-08-17] MEDS: Docusate Sodium 100 MG Capsule PO (21:06)
[2018-08-17] MEDS: busPIRone 5 MG Tablet 10 MG PO (21:06)
[2018-08-18 02:14] VITALS: BP 115/57; PULSE 74; RESP 18; TEMP 36.8; O2SAT 96
[2018-08-18] MEDS: Ketorolac 30 MG/ML Syringe IV ×2 (04:33→10:20)
[2018-08-18] MEDS: Acetaminophen 500 MG Tablet 1000 MG PO ×2 (05:43→11:54)
[2018-08-18 07:24] VITALS: O2SAT 94
[2018-08-18 07:49] LABS: Hematocrit 30.1 % (37-47); Hemoglobin 9.5 g/dl (12.0-15.0); Mean Corp Hgb Conc 31.6 g/gl (32-36); Mean Corpuscular Hgb 28.2 pg (27.0-32.0); Mean Corpuscular Volume 89.3 fL (81-99); Mean Platelet Vol. 9.6 fl (6.2-12.0); Platelet Count 274 K/mm3 (150-450); RBC Distribution Width SD 52.5 fl (35.1-43.9); Red Blood Count 3.37 M/mm3 (4.2-5.4); White Blood Count 9.4 K/mm3 (4.4-11.0)
[2018-08-18 07:54] LABS: Scan Indicated on CBC? Y/N NO
--- NOTE | 2018-08-18 07:59 | DCINST_ITS ---
Discharge Diet: No Restrictions Discharge Activity: Return to Normal Activity, May not drive while taking narcotic pain medications., May Shower May resume sexual activity in: 4-6 weeks Call your doctor if your incision/area has: Continuous Slow Oozing, Sudden Increased Bleeding, Increased Pain/ Swelling, Increased Redness, Foul Smelling Discharge Allergies/Adverse Reactions: Allergies morphine Adverse Reaction (Verified 08/10/18 09:02) Nausea/Vom/Diarrhea Medications to take at Discharge buspirone 10 mg tablet 10 mg PO BID 02/03/18 clonazepam 0.5 mg tablet 0.5 mg PO BID PRN 02/03/18 hydrochlorothiazide 25 mg tablet 25 mg PO QAM 02/03/18 Ferrous Fumarate 89 mg PO DAILY 08/10/18 Multivitamin [Daily Multiple Vitamin] 1 each PO DAILY 08/10/18 Omeprazole 40 mg PO DAILY 08/10/18 Naproxen [Naprosyn] 250 - 500 mg PO Q8H PRN PRN #30 tablet 08/17/18 Oxycodone HCl/Acetaminophen [Percocet 5-325] 1 - 2 tablet PO Q4H PRN PRN 7 Days #15 tablet 08/17/18 The following prescriptions were given: Oxycodone HCl/Acetaminophen [Percocet 5-325] 1 - 2 tablet PO Q4H PRN PRN 7 Days #15 tablet PRN Reason: Pain Naproxen [Naprosyn] 250 - 500 mg PO Q8H PRN PRN #30 tablet PRN Reason: MILD PAIN Orders to be completed after discharge: Type & Screen Time Frame: 08/10/18, Facility: [facility], Location: Laboratory 12 Lead EKG [[facility]] Time Frame: 08/10/18, Facility: [facility], Location: Cardiovascular Services Basic Metabolic Profile (BMP) Time Frame: 08/10/18, Location: Laboratory CBC-Complete Blood Cnt No Diff Time Frame: 08/10/18, Location: Laboratory ,Urine Time Frame: 08/17/18, Location: Laboratory Primary Care Physician: Rosita Canas DO [Primary Care Provider] - Test Results: Test results from this visit will be discussed in further detail at your follow- up appointment, if applicable. Please Follow Up With: Fina Stockton MD - [phone]
[2018-08-18 08:00] VITALS: BP 131/86; PULSE 81; RESP 18; TEMP 36.6; O2SAT 97
--- NOTE | 2018-08-18 08:00 | PCM.PN.OB ---
Subjective: doing well no complaints pain controlled no CP SOB N V ambulating well tolerating po no further bleeding - Physical Exam General: Alert, Oriented x3 Vital Signs Temp Pulse Resp BP Pulse Ox 98.3 F 74 18 115/57 L 94 08/18/18 02:14 08/18/18 02:14 08/18/18 02:14 08/18/18 02:14 08/18/18 07:24 Oxygen Flow Rate (L/min) 6 Oxygen Delivery Method Room Air Weight: 257 lb 11.526 oz Body Mass Index (BMI) 38.0 Intake and Output for Last 24 Hours 08/16/18 08/17/18 08/18/18 23:59 23:59 23:59 Intake Total 2866 / 2866 2200 / 2200 Output Total 770 / 770 1450 / 1450 Balance 2096 / 2096 750 / 750 Laboratory Tests Past 24 Hrs 08/18/18 07:00 WBC 9.4 RBC 3.37 L Hgb 9.5 L Hct 30.1 L MCV 89.3 MCH 28.2 MCHC 31.6 L RDW 16.0 H RDW Differential 52.5 H Plt Count 274 MPV 9.6 POC Glucose 08/17/18 08/17/18 11:11 07:54 POC Glucose 153 H 98 Medical Necessity - Tobacco Use Smoking Status: Current every day smoker Tobacco Use: Cigarettes Assessment/Plan All Active Problems (Last Reviewed 08/07/18 @ 10:04 by Yu Manjarrez) Abnormal uterine bleeding (Acute) s/p TVH pod 1 routine care al home
[2018-08-18] MEDS: clonazePAM 0.5 MG Tablet PO (08:32)
[2018-08-18] MEDS: Ferrous Sulfate 325 MG Tablet PO (08:33)
[2018-08-18] MEDS: oxyCODONE 5 MG Tablet PO ×2 (08:33→13:15)
[2018-08-18] MEDS: Pantoprazole Sodium 40 MG Tablet PO (08:34)
[2018-08-18] MEDS: hydroCHLOROthiazide 25 MG Tablet PO (08:34)
[2018-08-18] MEDS: Multivitamins,Therapeutic Tablet 1 TABLET PO (08:34)
[2018-08-18] MEDS: busPIRone 5 MG Tablet 10 MG PO (10:19)
[2018-08-18] MEDS: 0.9% NaCl Peripheral Flush Adult/Peds IV (10:20)
[2018-08-18] MEDS: Docusate Sodium 100 MG Capsule PO (10:20)
--- NOTE | 2018-08-18 13:04 | NURSING ---
pt has voided qs x2, clear yellow urine, pt feels like she is emptying bladder harry pad changed for cleanliness, scant amount on peripad dark red
== END 2018-08-18 13:37 | disposition home or self-care (01) ==
LOC: SDC 06:44 → AC 06:47 → MS2 09:08
PROVIDERS: Family Provider Family Medicine; PCP Family Medicine; Referring Provider Obstetrics & Gynecology; Visit Provider Obstetrics & Gynecology
PROC: (CPT 58260; principal; 2018-08-17 08:45)
DX: N93.9 Abnormal uterine and vaginal bleeding, unspecified (principal); N88.8 Other specified noninflammatory disorders of cervix uteri; N80.0 Endometriosis of uterus; I10 Essential (primary) hypertension; K21.9 Gastro-esophageal reflux disease without esophagitis; F32.9 Major depressive disorder, single episode, unspecified; F41.9 Anxiety disorder, unspecified; F17.210 Nicotine dependence, cigarettes, uncomplicated
CPT/HCPCS: 00944; 58262; 36415; 80048; 81025; 82962; 85027; 86850; 86900; 88307; 93005; 94762; 97802; J7120; A4216; J2405

== ENCOUNTER → 2020-09-23 13:22 | Outpatient (CLI) | payer OTHER, SELFPAY ==
[2018-09-27 11:36] VITALS: BMI 38.6
== END ==
PROVIDERS: PCP Family Medicine; Visit Provider Family Medicine
DX: N39.0 Urinary tract infection, site not specified (principal)
CPT/HCPCS: 87077; 87086; 87088; 87186

== ENCOUNTER 2021-02-06 05:54 | Inpatient (IN) | payer OTHER, SELFPAY ==
[2018-09-27 11:36] VITALS: BMI 38.6
[2021-02-06] VITALS (51 sets, daily range): BP systolic 84–178; BP diastolic 56–97; PULSE 85–175; RESP 16–32; TEMP 36.1–36.8; O2SAT 93–99; BMI 37.3; BMI 35.6
--- NOTE | 2021-02-06 06:00 | EKG12_ITS ---
Test Reason : CP Blood Pressure : / mmHG Vent. Rate : 154 BPM Atrial Rate : 080 BPM P-R Int : 000 ms QRS Dur : 072 ms QT Int : 294 ms P-R-T Axes : 000 021 008 degrees QTc Int : 470 ms Atrial fibrillation with rapid ventricular response ST depression, consider subendocardial injury Abnormal ECG Confirmed by TIFFANIE MITCHELL, KUNAL ([id number]), metal inspector LEAH ALFRED ([id number]) on 02/09/2021 9:55:05 AM Referred By: DANNY Confirmed By:DOMINIQUE MOERNO MD
--- NOTE | 2021-02-06 06:01 | ED.VIS.CHEST ---
HPI History of Present Illness Chief Complaint: Chest Pain Informant: patient and spouse/S.O. Onset/Context/Timing Onset: Hours (0345) Activity at onset: sleep Timing: Continuous Quality: Positive for Pressure Location: Substernal Current Severity: Mild Maximum Severity: Severe Worsened By: Nothing Relieved By: Nothing Associated Symptoms: Positive for Nausea, Diaphoresis and Dyspnea; Negative for Vomiting, Cough, Fever, Lightheadedness, Acid Reflux and Palpitations Narrative Narrative: Patient is a 50-year-old woman with history of anxiety and hypertension who presents because she was wake from sleep at 0345 with chest pressure associated with nausea and diaphoresis. She denied radiation. She denies history of coronary disease. She denies history of peptic ulcer disease or hiatal hernia. She is on omeprazole though. Smoker of half pack per day. She denies black or maroon-colored stool. She denies cough. She denies fever or chills. She denies upper respiratory symptoms. Prior Similar Symptoms: No Recent Illness/Hospitalization: No CVD Risk Factors: Positive for Hypertension and Smoking; Negative for Diabetes, Hypercholesterolemia and Family History 1' </=55 PE Risk Factors: Negative for Recent Travel/Surgery, Recent Immobilization, Prior DVT or PE, Cancer and OCP + Smoking + >/=35 TAD Risk Factors: Positive for Hypertension; Negative for Marfan's Syndrome and Family History [facility]SH [facility] Medical History (Updated 02/06/21 @ 06:[address] Shaheen Trivedi MD) Anxiety Ectopic HTN (hypertension) Home Medications clonazepam 0.5 mg tablet 0.5 mg PO BID PRN 02/03/18 [History Last Taken Unknown] hydrochlorothiazide 25 mg tablet 25 mg PO QAM 02/03/18 [History Last Taken Unknown] omeprazole 40 mg PO DAILY 08/10/18 [History Last Taken Unknown] Allergy/AdvReac Type Severity Reaction Status Date / Time morphine AdvReac Nausea/Vom/ Verified 12/28/18 19:08 Diarrhea Family History Mother Asthma Breast cancer Cancer Diabetes Heart disease Hypertension Kidney disease Surgical History (Updated 02/06/21 @ 06:08 by Thea Reynoso) H/O hemorrhoidectomy History of cholecystectomy History of laparotomy History of total vaginal hysterectomy (TVH) (~08/17/18) S/P laparoscopic cholecystectomy S/P tonsillectomy S/P wrist surgery Social History Smoking Status: Current every day smoker tobacco type: cigarettes alcohol intake: current alcohol intake frequency: holidays/special occasions only details: social substance use type: does not use caffeine: Yes what type of physical activity do you participate in: walking seatbelt use: always do you feel safe at home: Yes ROS ROS ED Constitutional Constitutional ED: Denies chills, fever(s), subjective or sweats Eyes Eyes: Denies blurry vision or change in vision ENT ENT ED: Denies ear pain, rhinorrhea or sore throat Cardiovascular Cardiovascular: Reports as per HPI and chest pain; Denies orthopnea, palpitations, paroxysmal nocturnal dyspnea or racing heartbeat Respiratory/Chest Respiratory/Chest: Reports dyspnea; Denies cough, dyspnea on exertion, orthopnea, paroxysmal nocturnal dyspnea or sputum Gastrointestinal Gastrointestinal: Reports abdominal pain, diarrhea, nausea and vomiting Genitourinary Genitourinary ED: Reports dysuria, hematuria and urinary frequency Musculoskeletal Musculoskeletal: Reports arthralgias, myalgias and neck pain Integumentary Reports rash Neurologic Neurologic: Reports headache(s) Endocrine Endocrinology: Denies cold intolerance, heat intolerance, polydipsia, polyphagia or polyuria Hematologic/Lymphatic Hematologic/Lymphatic: Denies easy bleeding or easy bruising EXAM Physical Exam Const Vital Signs: 02/06/21 05:54 02/06/21 05:55 02/06/21 06:32 Temperature 97.0 F L Temperature Source Temporal Pulse Rate 162 H 175 H Respiratory Rate 32 H Blood Pressure 151/88 H Blood Pressure Mean 109 Pulse Ox 97 96 Oxygen Delivery Method Room Air Room Air 02/06/21 06:38 Temperature Temperature Source Pulse Rate 122 H Respiratory Rate 19 H Blood Pressure 112/97 H Blood Pressure Mean 102 Pulse Ox 96 Oxygen Delivery Method Room Air Positive well nourished, well developed and obese General Appearance ED: well developed Nutritional Appearance: obese HEENT Reports moist mucous membranes HEENT Narrative: Nares patent. Face symmetric. normocephalic and atraumatic Eyes PERRL and EOMs intact bilaterally General Eye ED: Negative for pale conjunctiva or scleral icterus Neck no lymphadenopathy, supple and no JVD Chest Wall inspection of chest normal and palpation of chest normal Resp normal respiratory effort and clear to auscultation bilaterally Effort and Inspection: respiratory distress Cardio no murmurs; Negative for regular rate or regular rhythm Rate: tachycardic Peripheral Pulses: radial pulses present and femoral pulses present GI normal to inspection, nondistended, normoactive bowel sounds, soft to palpation and non-tender Back/Spine no CVA tenderness Extremity normal to inspection Extremity Narrative: There is no asymmetry, swelling, discoloration, leg vein distention, palpable cords or tenderness along the distribution of the deep venous system. General Extremety ED: Negative for edema or tenderness General Extremity: Negative for edema Neuro oriented x3, CN's II-XII intact bilaterally and no sensory deficits noted Sensorium / Orientation: awake and alert Motor Exam: strength 5/5 throughout Psych mental status grossly normal Skin no rashes or lesions noted and no wounds Heart Score History: Moderately Suspicious ECG: Nonspecific Repolarization Age: >45 - <65 years Risk Factors: 1 or 2 Risk Factors Score: 4 MDM MDM MDM Narrative Medical decision making narrative: Patient presents with abrupt onset of chest pain. She was unaware that her heart rate was going greater than 150. Because patient is unaware that her heart was going 150 onset is unknown. Reluctant to cardiovert since she is not hemodynamically unstable. Furthermore EKG does not reveal evidence of ST elevation or IN. There is no ossific changes noted. Therefore, we will treat with Cardizem bolus and drip. Appropriate blood work was ordered as well as chest x-ray and aspirin. We will anticoagulate with Lovenox. Patient was reassessed at 0645. Heart rate is ranging between 115 and 120. She remains in atrial fibrillation. She is presently on a Cardizem drip. She states the chest pressure has improved. Lab Data Labs: Laboratory Results - last 24 hr 02/06/21 02/06/21 06:10 06:10 WBC 9.4 RBC 4.49 Hgb 13.9 Hct 41.3 MCV 92.0 MCH 31.0 MCHC 33.7 RDW Std Deviation 46.6 H RDW Coeff of Kary 13.8 Plt Count 270 MPV 10.1 Immature Gran % (Auto) 0.500 Neut % (Auto) 59.4 Lymph % (Auto) 28.5 [place] % (Auto) 7.4 Eos % (Auto) 3.8 Baso % (Auto) 0.4 Absolute Neuts (auto) 5.6 Absolute Lymphs (auto) 2.68 Nucleated RBC % 0 Sodium 141 Potassium 3.1 L Chloride 111 H Carbon Dioxide 23.0 Anion Gap 7 BUN 16 Creatinine 0.94 Estim Creat Clear Calc 74.83 Est GFR (MDRD) Af Amer 81 Est GFR (MDRD) Non-Af 67 BUN/Creatinine Ratio 17.1 Glucose 114 H Calcium 8.9 Troponin I High Sens 4.9 TSH 2.12 Radiography Chest X-Ray - ED: 1 View, Read by ED Physician (Single view portable chest x-ray was interpreted by me at 0648.), Heart, Lungs, Mediastinum, Bony Structures and No Acute Disease Rhythm Strip Rhythm Strip: A-fib Rate: 165 Ectopy: None EKG Initial EKG: Interpretation: Atrial Fibrillation (Ventricular rate is 154. QRS duration 72 ms. QT duration 294 ms. [place] is normal. There is minimal nonseptic changes noted.) Critical Care Time Critical care time (excluding procedures): 30-74 minutes (Total time 33 minutes), Including time spent: (Obtain history and performed physical exam, documentation, initiation of therapy, interpretation of laboratory results and chest x-ray initiate treatment with Cardizem, aspirin and Lovenox), Discussing w/Patient &/or Family/Steel [employer]er, Discussing w/Consultants and Arranging Admission or Transfer Discharge Plan Triage Chief Complaint: Chest Pain ED Provider: Shaheen Trivedi Dx/Rx/DC Orders Clinical Impression: Atrial fibrillation with RVR, Chest pressure, Hypertension Prescriptions: No Action hydrochlorothiazide 25 mg tablet 25 mg PO QAM RF: 0 clonazepam 0.5 mg tablet 0.5 mg PO BID PRN (Reason: Anxiety) RF: 0 omeprazole 40 MG capsule,delayed release(DR/EC) 40 mg PO DAILY RF: 0 Primary Care Provider: Rosita Canas Referrals: Rosita Canas DO [Primary Care Provider] - Disposition Disposition: Acute Care Hospital [facility]
[2021-02-06] MEDS: Aspirin 81 MG TAB.CHEW 324 MG PO (06:04)
[2021-02-06 06:14] LABS: Absolute Lymphocyte Count 2.68 X10^3/uL (0.83-4.51); Absolute Neutrophil Count 5.6 X10^3/uL (2.0-7.7); Basophil# 0.04 X10^3/uL; Basophil% 0.4 % (0-1); Eosinophil# 0.36 X10^3/uL; Eosinophils% 3.8 % (0-5); Hematocrit 41.3 % (37-47); Hemoglobin 13.9 g/dL (12.0-15.0); Lymphocyte # 2.68 X10^3/ul (0.83-4.51); Lymphocyte % 28.5 % (19-41); Mean Corp Hgb Conc 33.7 g/dL (32-36); Mean Platelet Vol. 10.1 fl (6.2-12.0); Monocyte% 7.4 % (0-10); NRBC Flagged by Analyzer 0 % (0-5); Neutrophil # 5.58 X10^3/uL (2.7-7.7); Neutrophil % 59.4 % (47-70); Platelet Count 270 K/mm3 (150-450); RBC Distribution Width CV 13.8 % (11.6-14.6); RBC Distribution Width SD 46.6 fl (35.1-43.9); Red Blood Count 4.49 M/mm3 (4.2-5.4); White Blood Count 9.4 K/mm3 (4.4-11.0)
[2021-02-06] MEDS: Enoxaparin 120 MG/0.8 ML Syringe SC (06:33)
[2021-02-06] MEDS: dilTIAZem 25 MG/5 ML Vial 20 MG IV BOLUS (06:33)
--- NOTE | 2021-02-06 06:35 | RAD_ITS ---
STUDY: X-RAY CHEST REASON FOR EXAM: Female, 50 years old. chest pain TECHNIQUE: AP frontal view of the chest. COMPARISON: None. FINDINGS: The lungs are clear and expanded. There is no demonstrated pleural abnormality. Normal size heart. Normal mediastinum and cas. Normal visualized pulmonary arteries. Normal visualized aortic arch and descending thoracic aorta. Normal visualized thoracic spine. Normal visualized ribs, clavicles, and shoulders. There is no demonstrated abnormality of the visualized soft tissue structures of the upper abdomen. RAD/Chest 1 View (Portable) IMPRESSION: Normal x-ray examination of the chest. Electronically Signed: Giovanny Ibarra MD at 7:17 EDT Tel , Service support ,
[2021-02-06 06:38] LABS: Anion Gap 7 (5-15); BUN 16 mg/dL (7-18); BUN/Creat Ratio 17.1 RATIO (10-20); Calcium,Total 8.9 mg/dL (8.5-10.1); Chloride 111 mmol/L (98-107); Creatinine, Serum 0.94 mg/dL (0.55-1.02); EST Glomerular Filtration Rate 67 mL/min (>60); Est Glom Filt Rate - Afr Amer 81 mL/min (>60); Estimated Creatinine Clearance 74.83 ml/min; Glucose 114 mg/dL (74-106); Potassium 3.1 mmol/L (3.5-5.1); Sodium Level 141 mmol/L (136-145); Thyroid Stim Hormone (TSH) 2.12 uIU/mL (0.358-3.74); Troponin-I HS 4.9 pg/mL (3.0-53.7)
[2021-02-06] MEDS: dilTIAZem 25 MG/5 ML Vial IV BOLUS (07:07)
[2021-02-06] MEDS: Potassium Chloride Oral Tablet 20 MEQ 60 MEQ PO (07:53)
[2021-02-06 08:11] LABS: Hemoglobin A1c 5.5 % (3.8-5.6)
--- NOTE | 2021-02-06 09:35 | ECHOD_ITS ---
Reason For Study: AFIB/FLUTTER Procedure This was a 2D Doppler, Color Flow transthoracic echocardiogram. The study was technically difficult. Exam performed portable in ICU/CCU. Left Ventricle The estimated ejection fraction is 60 %. No evidence for diastolic dysfunction. No regional wall motion abnormalities noted. Right Ventricle Normal RV size. Normal systolic function. Atria Normal left atrium. Normal right atrium. No doppler evidence for ASD. Mitral Valve There is no mitral valve stenosis. No mitral valve insufficiency. Tricuspid Valve There is no tricuspid stenosis. Trivial tricuspid valve insufficiency. Pulmonary artery systolic pressure is 30 mmHg. Aortic Valve Trisinus/trileaflet aortic valve. There is no aortic stenosis. No aortic valve insufficiency. Pulmonic Valve There is no pulmonic valvular stenosis. No pulmonic valve insufficiency. Great Vessels Normal aortic root. Pericardium/Pleural No pericardial effusion. MMode/2D Measurements & Calculations LVIDd: 3.6 cm IVSd: 1.1 cm Ao root diam: 3.1 cm LVIDs: 2.4 cm LVPWd: 1.3 cm RVDd: 3.2 cm FS: 33.7 % LAV(MOD-bp): 51.5 ml LA A4 area: 17.2 cm2 LA dimension(2D): 3.6 cm LAV(MOD-bp) Indexed: 22.6 ml/m2 LAV(MOD-sp2): 45.6 ml LAV(MOD-sp4): 52.2 ml RA A4 area: 9.1 cm2 Doppler Measurements & Calculations MV E max josef: 90.3 cm/sec Ao V2 max: 152.4 cm/sec LV V1 max: 132.5 cm/sec Ao max P.3 mmHg LV V1 max P.0 mmHg TR max josef: 251.1 cm/sec TR max P.2 mmHg ECHO/Echo Complete Interpretation Summary The estimated ejection fraction is 60 %. No evidence for diastolic dysfunction. Ordering Physician: Nicole Garcia Referring Physician: Rosita Canas Performed By: Victoria Parkinson, VALENCIA, RVT
[2021-02-06 10:27] LABS: Troponin-I HS 41.7 pg/mL (3.0-53.7)
[2021-02-06] MEDS: Metoprolol Tartrate 50 MG Tablet PO ×2 (10:32→21:57)
[2021-02-06] MEDS: Pantoprazole Sodium 40 MG Tablet PO (10:32)
--- NOTE | 2021-02-06 10:38 | PCM.HP.STD ---
HPI - General General Date of Admission: 02/06/21 HPI Narrative ANA MARIA MONTEJO, is a 50 F who presented to the emergency department at [facility] on 02/06/2021 with chief complaint of chest pain. She was awakened from sleep at approximately 345 this morning with acute onset chest pain/pressure that was substernal in nature and relieved or worsened by nothing. She had associated nausea, diaphoresis, dyspnea but no vomiting or palpitations. She has a past medical history of anxiety and hypertension. She has no personal history of coronary artery disease but have a family history of heart disease. She is a current everyday smoker. Upon presentation she was found to have A. fib with RVR which is a new diagnosis for her. Heart rates were upward of 170 on presentation. She was started on a Cardizem drip. Her vital signs were otherwise stable and she was afebrile, normotensive and satting 93 to 97% on room air. Her CBC was unremarkable. Her BMP showed mild hypokalemia with normal renal function, slightly elevated fasting glucose at 114. A TSH was obtained and was 2.12. Her initial high-sensitivity troponin was 4.9. She was admitted to stepdown for continuation of her Cardizem drip with titration and given Lovenox subcutaneously for full anticoagulation given her new diagnosis is a atrial fibrillation. Her does indicate she snores but is not clear on any signs of sleep apnea. The patient denies disrupted sleep, daytime sleepiness, or the ability to fall asleep easily during the day while relaxed. [facility] Medical History Anemia Anxiety Atrial fibrillation (~02/06/21) Chest pain Ectopic GERD (gastroesophageal reflux disease) HTN (hypertension) Smoker Home Medications clonazepam 0.5 mg tablet 0.5 mg PO BID PRN 02/03/18 [History Last Taken 01/22/21] hydrochlorothiazide 25 mg tablet 25 mg PO QAM 02/03/18 [History Last Taken 02/05/21] omeprazole 40 mg PO DAILY 08/10/18 [History Last Taken 02/05/21] Allergy/AdvReac Type Severity Reaction Status Date / Time morphine AdvReac Nausea/Vom/ Verified 12/28/18 19:08 Diarrhea Family History Mother Asthma Breast cancer Cancer Diabetes Heart disease Hypertension Kidney disease Surgical History (Updated 02/06/21 @ 06:08 by Thea Reynoso) H/O hemorrhoidectomy History of cholecystectomy History of laparotomy History of total vaginal hysterectomy (TVH) (~08/17/18) S/P laparoscopic cholecystectomy S/P tonsillectomy S/P wrist surgery Social History Smoking Status: Current every day smoker tobacco type: cigarettes alcohol intake: current alcohol intake frequency: holidays/special occasions only details: social substance use type: does not use caffeine: Yes what type of physical activity do you participate in: walking seatbelt use: always do you feel safe at home: Yes ROS Review of Systems ROS Unobtainable: Denies due to encephalopathy, due to endotracheal tube, due to mental condition, due to mental status or other Constitutional Constitutional: Denies anorexia, change in weight, chills, fatigue, fever(s), malaise, night sweats, weakness or other Eyes Eyes: Denies blurry vision, change in eye color, change in vision, discharge from eye(s), double vision, erythema, eye pain, loss of vision or other ENT HEENT: Denies abnormal hearing, dysphagia, ear pain, epistaxis, headache(s), hearing loss, nasal congestion, nasal discharge, post nasal drip, sinus pressure, sore throat or other Cardiovascular Cardiovascular: Reports chest pain and other Details: Diaphoresis ; Denies claudication, dyspnea on exertion, edema, lightheadedness, orthopnea, palpitations, paroxysmal nocturnal dyspnea, rapid heart rate or syncope Respiratory/Chest Respiratory/Chest: Reports shortness of breath at rest; Denies cough, dyspnea, excessive phlegm production, hemoptysis, productive cough, shortness of breath with exertion, wheezing or other Gastrointestinal Gastrointestinal: Reports nausea; Denies abdominal pain, coffee ground emesis, constipation, diarrhea, dyspepsia, hematemesis, hematochezia, loose stools, melena, vomiting or other Genitourinary Genitourinary: Denies burning urination, difficulty urinating, dysuria, hematuria, nocturia, urinary frequency, urinary hesitancy, urinary incontinence, urinary urgency or other Musculoskeletal Musculoskeletal: Denies arthralgias, back pain, joint pain, joint stiffness, joint swelling, myalgias, neck pain or other Neurologic Neurologic: Denies abnormal gait, abnormal speech, confusion, disequilibrium, dizziness, focal weakness, headache(s), numbness, paresthesias, seizure-like activity, seizures, syncope, tingling, tremor(s) or other Psychiatric Psychiatric: Reports anxiety; Denies depression, homicidal ideation, suicidal ideation or other Endocrine Endocrinology: Denies change in body appearance, cold intolerance, excessive sweating, heat intolerance, polydipsia, polyuria or other Hematologic/Lymphatic Hematologic/Lymphatic: Denies anemia, easy bleeding, easy bruising, lymphadenopathy or other Allergic/Immunologic Allergic/Immunologic: Denies rhinitis, hives, eczemia, asthma or other Vital Signs Vital Signs Vital Signs: 02/06/21 05:54 02/06/21 05:55 02/06/21 06:32 Temperature 97.0 F L Temperature Source Temporal Pulse Rate 162 H 175 H Respiratory Rate 32 H Respiratory Effort Blood Pressure 151/88 H Blood Pressure Mean 109 Pulse Ox 97 96 Oxygen Delivery Method Room Air Room Air 02/06/21 06:38 02/06/21 06:51 02/06/21 06:56 Temperature Temperature Source Pulse Rate 122 H 127 H Respiratory Rate 19 H 16 Respiratory Effort Normal Blood Pressure 112/97 H 118/96 H Blood Pressure Mean 102 103 Pulse Ox 96 93 Oxygen Delivery Method Room Air Room Air 02/06/21 07:10 02/06/21 08:04 02/06/21 08:41 Temperature 97.8 F Temperature Source Oral Pulse Rate 98 102 H 102 H Respiratory Rate 20 H 20 H 16 Respiratory Effort Blood Pressure 119/95 H 178/86 H 114/89 H Blood Pressure Mean 103 116 97 Pulse Ox 95 94 97 Oxygen Delivery Method Room Air Room Air 02/06/21 09:35 02/06/21 10:32 Temperature Temperature Source Pulse Rate 130 H 134 H Respiratory Rate Respiratory Effort Blood Pressure 116/62 Blood Pressure Mean Pulse Ox Oxygen Delivery Method Weight Weight: 109.316 kg Body Mass Index (BMI) 35.6 Physical Exam Const alert, oriented x3 and no apparent distress Constitutional Narrative: Obese white female, middle-aged, sitting up in bed, at bedside, appears comfortable, nontoxic General Appearance: cooperative HEENT normocephalic, head/scalp atraumatic, moist oral mucous membranes, oropharynx normal and dentition normal HEENT Narrative: Mallampati 2, no thrush Mouth: oral and palatal mucosa normal Eyes PERRL, EOMs intact bilaterally and conjunctivae normal Neck no lymphadenopathy, supple, no JVD and no carotid bruits Neck Narrative: Trachea midline, thyroid without enlargement or nodules palpated Resp normal respiratory effort, no retractions, no use of accessory muscles and clear to auscultation bilaterally Auscultation: Negative for crackles, rales, rhonchi or wheezes Cardio S1 normal heart sound, S2 normal heart sound, no murmurs, no rub, no gallops, no clicks and no JVD Cardio Narrative: Irregularly irregular rhythm with tachycardia GI normal to inspection, nondistended, normoactive bowel sounds, soft to palpation, non-tender and non-distended; Negative for hepatosplenomegaly Extremity normal to inspection, full ROM and no clubbing, cyanosis or edema Peripheral Pulses: Yes pulses 2+ throughout Skin no rashes or lesions noted, no wounds, skin turgor normal, no jaundice, no petechiae and no mottling Neuro oriented x3, CN's II-XII intact bilaterally, moves all extremities and no focal motor deficits Sensorium / Orientation: awake, alert, oriented to person, oriented to place and oriented to time Speech: speech normal Motor Exam: strength 5/5 throughout Psych affect normal Results Lab / Micro Data Result Diagrams: 02/06/21 06:10 02/06/21 06:10 Labs: Laboratory Results - last 24 hr 02/06/21 06:10: WBC 9.4, RBC 4.49, Hgb 13.9, Hct 41.3, MCV 92.0, MCH 31.0, MCHC 33.7, RDW Std Deviation 46.6 H, RDW Coeff of Kary 13.8, Plt Count 270, MPV 10.1, Immature Gran % (Auto) 0.500, Neut % (Auto) 59.4, Lymph % (Auto) 28.5, [place] % (Auto) 7.4, Eos % (Auto) 3.8, Baso % (Auto) 0.4, Absolute Neuts (auto) 5.6, Absolute Lymphs (auto) 2.68, Nucleated RBC % 0 02/06/21 06:10: Sodium 141, Potassium 3.1 L, Chloride 111 H, Carbon Dioxide 23.0, Anion Gap 7, BUN 16, Creatinine 0.94, Estim Creat Clear Calc 74.83, Est GFR (MDRD) Af Amer 81, Est GFR (MDRD) Non-Af 67, BUN/Creatinine Ratio 17.1, Glucose 114 H, Calcium 8.9, Troponin I High Sens 4.9, TSH 2.12 02/06/21 06:10: Hemoglobin A1c 5.5 02/06/21 09:50: Troponin I High Sens 41.7 Rhythm Strip Rhythm Strip: A-fib Rate: 165 Ectopy: None Radiology Impression Chest X-Ray 02/06/21 06:35 IMPRESSION: Normal x-ray examination of the chest. Electronically Signed: Giovanny Ibarra MD at 7:17 EDT Tel , Service support , Assessment & Plan Assessment/Plan (1) Atrial fibrillation with RVR: (2) Chest pressure: (3) Hypertension: (4) Hypokalemia: (5) Elevated blood sugar: (6) Obesity: PLAN: New onset A. fib with RVR -Continue Cardizem drip for now -Start metoprolol to 50 mg twice daily -Unclear how long she has been in atrial fibrillation so cardioversion is not an option unless she has a negative ARTI -Therapeutic Lovenox with plans to transition to Eliquis if no interventions needed -TSH is within normal limits -Replace electrolytes -Check echocardiogram -We will consult cardiology -Would recommend outpatient sleep study to rule out sleep apnea Hypokalemia -60 mEq p.o. -Repeat BMP in a.m. -Echo and magnesium Elevated glucose -Check hemoglobin A1c -Patient has a family history of diabetes Chest pressure -Suspect related to A. fib with RVR -Patient does have family history and tobacco abuse history with obesity -EKG shows no acute ischemic changes -Cycle cardiac enzymes -Echocardiogram pending -May need to consider ischemia work-up depending on findings -Check A1c -Check lipids Hypertension -Continue home hydrochlorothiazide -May need to hold depending on pressures with metoprolol/Cardizem GERD -Continue omeprazole Anxiety -Continue clonazepam Obesity -BMI 35.6 -Recommend weight loss -Complicates overall medical care for treatment, prognosis, and outcomes Tobacco abuse -Recommend smoking cessation -Nicotine patch if patient desires DVT prophylaxis -Full anticoagulation with Lovenox CODE STATUS -Full code Charges/Coding Visit Charges Inpatient E&M: 11139 Subs Hosp L3
[2021-02-06 13:07] LABS: Troponin-I HS 55.7 pg/mL (3.0-53.7)
--- NOTE | 2021-02-06 13:45 | CASEMGMT ---
SURESH PETERSON Face to Face with patient for initial transition planning/care coordination assessment. RN NICHOLAS introduced self and role at [facility]. Patient lying in bed, alert and oriented. Patient willing to participate in assessment and is able to answer all questions appropriately. Care providers, pharmacy, and demographics verified. Patient wishes to discharge home, denies need for home health at this time. Patient states she has no further needs or concerns at this time. CM to follow for discharge planning needs that may arise. PCP: [place] Specialists: none Preferred Pharmacy: [facility] Insurance: MMO Prescription Benefit: yes Living Will/HPOA: none LNOK: Living Arrangements: Patient lives with in a 2 story home. Patient states she is independent and able to ambulate stairs. Transportation: self/ DME/HHC: Patient denies DME or previous HHC. Disposition Plan: Patient to discharge home with family support and follow-up plans in place. Missy WAGNER, RN, CM
--- NOTE | 2021-02-06 18:49 | PCM.CONS.C ---
Assessment & Plan Assessment/Plan (1) Chest pressure: PLAN: Likely related to her A. fib with RVR. She could get a stress test as an outpatient. (2) Atrial fibrillation with RVR: PLAN: Improved with IV Cardizem. We will add p.o. Cardizem at 60 mg p.o. every 6 hours and attempt to titrate off the IV Cardizem. We will also add Eliquis. Risks and benefits discussed with the patient. 2D echo was reviewed. TSH was within normal limits. HPI Consult Data Date of Consult: 02/06/21 HPI Narrative Reason for Consultation: A. fib with RVR HPI Narrative: ANA MARIA MONTEJO, is a 50 F who presents with chest pain. In the emergency room patient was found to be in A. fib with RVR. She was started on Cardizem drip and her heart rate is better. Her chest pain has resolved. Review of systems: All systems reviewed. All else is negative except that in HPI. PFSH Medical History Anemia Anxiety Atrial fibrillation (~02/06/21) Chest pain Ectopic GERD (gastroesophageal reflux disease) HTN (hypertension) Smoker Home Medications clonazepam 0.5 mg tablet 0.5 mg PO BID PRN 02/03/18 [History Last Taken 01/22/21] hydrochlorothiazide 25 mg tablet 25 mg PO QAM 02/03/18 [History Last Taken 02/05/21] omeprazole 40 mg PO DAILY 08/10/18 [History Last Taken 02/05/21] Allergy/AdvReac Type Severity Reaction Status Date / Time morphine AdvReac Nausea/Vom/ Verified 12/28/18 19:08 Diarrhea Family History Mother Asthma Breast cancer Cancer Diabetes Heart disease Hypertension Kidney disease Surgical History (Updated 02/06/21 @ 06:08 by Thea Reynoso) H/O hemorrhoidectomy History of cholecystectomy History of laparotomy History of total vaginal hysterectomy (TVH) (~08/17/18) S/P laparoscopic cholecystectomy S/P tonsillectomy S/P wrist surgery Social History Smoking Status: Current every day smoker tobacco type: cigarettes alcohol intake: current alcohol intake frequency: holidays/special occasions only details: social substance use type: does not use caffeine: Yes what type of physical activity do you participate in: walking seatbelt use: always do you feel safe at home: Yes Physical Exam Const alert and oriented x3 Orientation / Consciousness: awake HEENT normocephalic Eyes no scleral icterus Chest inspection of chest normal Resp normal respiratory effort Cardio S1 normal heart sound and S2 normal heart sound Cardio Narrative: Irregularly irregular rhythm Extremity no pedal edema Skin no rashes or lesions noted Neuro oriented x3 Charges/Coding Visit Charges Inpatient E&M: 21953 Init Hosp L3 Objective Data Vital Signs: Vital Signs Temp Pulse Resp BP Pulse Ox 97 F L 105 H 19 H 101/71 97 02/06/21 15:21 02/06/21 17:00 02/06/21 17:00 02/06/21 17:00 02/06/21 16:26 Oxygen Delivery Method Room Air Weight: 243 lb 2.718 oz Body Mass Index (BMI) 35.6 Intake & Output: Intake and Output for Last 24 Hours 02/04/21 02/05/21 02/06/21 23:59 23:59 23:59 Intake Total 276.03 / 276.03 Balance 276.03 / 276.03 Lab / Micro Data Result Diagrams: 02/06/21 06:10 02/06/21 06:10 Labs: Laboratory Results - last 24 hr 02/06/21 06:10: WBC 9.4, RBC 4.49, Hgb 13.9, Hct 41.3, MCV 92.0, MCH 31.0, MCHC 33.7, RDW Std Deviation 46.6 H, RDW Coeff of Kary 13.8, Plt Count 270, MPV 10.1, Immature Gran % (Auto) 0.500, Neut % (Auto) 59.4, Lymph % (Auto) 28.5, [place] % (Auto) 7.4, Eos % (Auto) 3.8, Baso % (Auto) 0.4, Absolute Neuts (auto) 5.6, Absolute Lymphs (auto) 2.68, Nucleated RBC % 0 02/06/21 06:10: Sodium 141, Potassium 3.1 L, Chloride 111 H, Carbon Dioxide 23.0, Anion Gap 7, BUN 16, Creatinine 0.94, Estim Creat Clear Calc 74.83, Est GFR (MDRD) Af Amer 81, Est GFR (MDRD) Non-Af 67, BUN/Creatinine Ratio 17.1, Glucose 114 H, Calcium 8.9, Troponin I High Sens 4.9, TSH 2.12 02/06/21 06:10: Hemoglobin A1c 5.5 02/06/21 09:50: Troponin I High Sens 41.7 02/06/21 12:35: Troponin I High Sens 55.7 H* Rhythm Strip Rhythm Strip: A-fib Rate: 165 Ectopy: None Cardiology Labs/Tests 02/06/21 06:10: WBC 9.4, RBC 4.49, Hgb 13.9, Hct 41.3, MCV 92.0, MCH 31.0, MCHC 33.7, Plt Count 270, MPV 10.1, Immature Gran % (Auto) 0.500, Neut % (Auto) 59.4, Lymph % (Auto) 28.5, [place] % (Auto) 7.4, Eos % (Auto) 3.8, Baso % (Auto) 0.4, Absolute Neuts (auto) 5.6, Nucleated RBC % 0 02/06/21 06:10: Sodium 141, Potassium 3.1 L, Chloride 111 H, Carbon Dioxide 23.0, Anion Gap 7, BUN 16, Creatinine 0.94, Est GFR (MDRD) Af Amer 81, Est GFR (MDRD) Non-Af 67, BUN/Creatinine Ratio 17.1, Glucose 114 H, Calcium 8.9 02/06/21 06:10: Hemoglobin A1c 5.5 Rhythm: EKG: ECHO: Stress Test: Cardiac Cath: PCI: CT Surgery: Holter monitor: EPS: PPM: CXR: Chest CT Scan: Radiography Diagnostic Testing: Radiology Impression Chest X-Ray 02/06/21 06:35 IMPRESSION: Normal x-ray examination of the chest. Electronically Signed: Giovanny Ibarra MD at 7:17 EDT Tel , Service support , Echocardiogram 02/06/21 09:35 Interpretation Summary The estimated ejection fraction is 60 %. No evidence for diastolic dysfunction. Ordering Physician: Nicole Garcia Referring Physician: Rosita Canas Performed By: Victoria Parkinson, VALENCIA, RVT
[2021-02-06] MEDS: dilTIAZem 60 MG Tablet PO (19:04)
[2021-02-06] MEDS: APIXABAN 5 MG TABLET PO (21:57)
[2021-02-06] MEDS: MELATONIN 3 MG TABLET PO (21:57)
[2021-02-07] VITALS (18 sets, daily range): BP systolic 76–140; BP diastolic 49–85; PULSE 72–132; RESP 14–18; TEMP 36.2–37; O2SAT 94–98
[2021-02-07] MEDS: dilTIAZem 60 MG Tablet PO ×3 (00:39→11:57)
[2021-02-07] MEDS: 0.9% Normal Saline 1,000 ML 75 ML IV (06:28)
[2021-02-07 06:40] LABS: Absolute Lymphocyte Count 2.74 X10^3/uL (0.83-4.51); Basophil# 0.05 X10^3/uL; Basophil% 0.5 % (0-1); Eosinophil# 0.35 X10^3/uL; Eosinophils% 3.6 % (0-5); Hematocrit 39.5 % (37-47); Hemoglobin 12.8 g/dL (12.0-15.0); Lymphocyte # 2.74 X10^3/ul (0.83-4.51); Mean Corp Hgb Conc 32.4 g/dL (32-36); Mean Corpuscular Hgb 30.6 pg (27.0-32.0); Mean Corpuscular Volume 94.5 fL (81-99); Mean Platelet Vol. 10.7 fl (6.2-12.0); Monocyte# 0.65 X10^3/uL; Monocyte% 6.6 % (0-10); NRBC Flagged by Analyzer 0 % (0-5); Neutrophil # 5.97 X10^3/uL (2.7-7.7); Neutrophil % 60.9 % (47-70); Platelet Count 292 K/mm3 (150-450); RBC Distribution Width CV 14.3 % (11.6-14.6); RBC Distribution Width SD 49.8 fl (35.1-43.9); Red Blood Count 4.18 M/mm3 (4.2-5.4); White Blood Count 9.8 K/mm3 (4.4-11.0)
[2021-02-07 07:14] LABS: AST(SGOT) 14 U/L (15-37); Alanine Aminotransfer ALT/SGPT 31 U/L (13-56); Alkaline Phosphatase 66 U/L (45-117); Bilirubin, Direct 0.07 mg/dL (0.00-0.30); Cholesterol 179 mg/dL (200); Globulin 3.4 g/dL (2.2-4.2); High Density Lipoprotein 47 mg/dL; Magnesium 2.1 mg/dL (1.6-2.6); Phosphorus 2.5 mg/dL (2.5-4.9); Protein, Total 6.4 g/dL (6.4-8.2); Triglycerides 135 mg/dL; Very Low Density Lipoprotein 27 mg/dL (5-40)
[2021-02-07] MEDS: APIXABAN 5 MG TABLET PO ×2 (08:49→21:02)
[2021-02-07] MEDS: Metoprolol Tartrate 50 MG Tablet PO ×2 (08:50→21:02)
[2021-02-07] MEDS: Pantoprazole Sodium 40 MG Tablet PO (08:50)
--- NOTE | 2021-02-07 10:09 | PCM.PN.HOSP ---
Subjective Subjective Patient states she is feeling fine. Heart rates are still not controlled. They were better over the night when she was sleeping but now that she is awake there are up into the 110s to 130s. Objective Data Objective Data Vital Signs: Vital Signs Temp Pulse Resp BP Pulse Ox 97.6 F L 132 H 16 102/79 97 02/07/21 08:52 02/07/21 08:52 02/07/21 08:52 02/07/21 08:52 02/07/21 08:52 Oxygen Delivery Method Room Air Weight: 110.3 kg Body Mass Index (BMI) 35.6 Intake & Output: Intake and Output for Last 24 Hours 02/05/21 02/06/21 02/07/21 23:59 23:59 23:59 Intake Total 331.12 / 333.62 7.5 / 7.5 Balance 331.12 / 333.62 7.5 / 7.5 Lab / Micro Data Result Diagrams: 02/07/21 05:52 02/06/21 06:10 Labs: Laboratory Results - last 24 hr 02/06/21 09:50: Troponin I High Sens 41.7 02/06/21 12:35: Troponin I High Sens 55.7 H* 02/07/21 05:52: WBC 9.8, RBC 4.18 L, Hgb 12.8, Hct 39.5, MCV 94.5, MCH 30.6, MCHC 32.4, RDW Std Deviation 49.8 H, RDW Coeff of Kary 14.3, Plt Count 292, MPV 10.7, Immature Gran % (Auto) 0.400, Neut % (Auto) 60.9, Lymph % (Auto) 28.0, [place] % (Auto) 6.6, Eos % (Auto) 3.6, Baso % (Auto) 0.5, Absolute Neuts (auto) 6.0, Absolute Lymphs (auto) 2.74, Nucleated RBC % 0 02/07/21 05:52: Phosphorus 2.5, Magnesium 2.1, Total Bilirubin 0.40, Direct Bilirubin 0.07, AST 14 L, ALT 31, Alkaline Phosphatase 66, Total Protein 6.4, Albumin 3.0 L, Globulin 3.4, Triglycerides 135, Cholesterol 179, LDL Cholesterol 105, VLDL Cholesterol 27, HDL Cholesterol 47 Radiography Diagnostic Testing: Radiology Impression Echocardiogram 02/06/21 09:35 Interpretation Summary The estimated ejection fraction is 60 %. No evidence for diastolic dysfunction. Ordering Physician: Nicole Garcia Referring Physician: Rosita Canas Performed By: Victoria Parkinson RDCS, RVT Rhythm Strip Rhythm Strip: A-fib Rate: 165 Ectopy: None Physical Exam Const alert, oriented x3 and no apparent distress Constitutional Narrative: Obese white female, middle-aged, sitting up in a chair at the bedside watching television, appears comfortable, nontoxic General Appearance: cooperative Exam Limitations: no limitations HEENT normocephalic and head/scalp atraumatic Head and Scalp: normocephalic Resp normal respiratory effort, no retractions, no use of accessory muscles and clear to auscultation bilaterally Auscultation: Negative for crackles, rales, rhonchi or wheezes Cardio S1 normal heart sound, S2 normal heart sound, no murmurs, no rub, no gallops, no clicks and no JVD Cardio Narrative: Irregularly irregular rhythm with tachycardia GI normal to inspection, nondistended, normoactive bowel sounds, soft to palpation, non-tender and non-distended; Negative for hepatosplenomegaly Extremity normal to inspection, full ROM and no clubbing, cyanosis or edema Neuro oriented x3 Sensorium / Orientation: awake and alert Assessment & Plan Assessment/Plan (1) Atrial fibrillation with RVR: (2) Hypertension: (3) Obesity: PLAN: New onset A. fib with RVR -Patient is on metoprolol 50 mg twice daily and diltiazem 60 mg every 6 -Unclear how long she has been in atrial fibrillation so cardioversion is not an option unless she has a negative ARTI -Eliquis initiated by cardiology as no interventions are needed--> will continue -TSH is within normal limits -Echocardiogram shows an EF of 65% with no valvular abnormalities or other structural abnormalities -Would like to avoid amiodarone given her age--> question the initiation of another antiarrhythmic -Cardiology is following will await changes -Would recommend outpatient sleep study to rule out sleep apnea Hypokalemia - repeat BMP in a.m. Elevated glucose -Hemoglobin A1c is 5.5 Chest pressure/troponin elevation -Suspect related to A. fib with RVR -Patient does have family history and tobacco abuse history with obesity -EKG shows no acute ischemic changes -Slight rise in enzymes but suspected related to tachycardia and not ischemia -Echo shows an EF of 65% with no wall motion abnormalities -Lipids are total cholesterol 179, LDL 105, HDL 47 Hypertension -Stop HCTZ with the initiation of beta-yeni and calcium channel yeni for rate control -Continue metoprolol -Continue Cardizem GERD -Continue omeprazole Anxiety -Continue clonazepam Obesity -BMI 35.6 -Recommend weight loss -Complicates overall medical care for treatment, prognosis, and outcomes Tobacco abuse -Recommend smoking cessation -Nicotine patch if patient desires DVT prophylaxis -Eliquis CODE STATUS -Full code Charges/Coding Visit Charges Inpatient E&M: 99663 Subs Hosp L2
--- NOTE | 2021-02-07 10:23 | DS.PCM_ITS ---
Providers Date of Admission: 02/06/21 Primary Care Physician: Dr. Rosita Canas DO Consultations 02/06/21 09:35 Consult: Cardiology Routine Consulting Provider: Freddy Lanier Reason for Consult: afib EMERGENT Consult: No MD Notified: Yes Date Notified: 02/06/21 Time Notified: 08:32 Method of Notification: Text Reason For Visit: ATRIAL FIBRILLATION WITH RVR Diagnosis Discharge Diagnosis (1) Atrial fibrillation with RVR: Status: Acute Code(s): I48.91 - Unspecified atrial fibrillation (2) Hypertension: Status: Chronic Code(s): I10 - Essential (primary) hypertension (3) Obesity: Status: Acute Code(s): E66.9 - Obesity, unspecified Medications at Discharge Home Medications clonazepam 0.5 mg tablet 0.5 mg PO BID PRN 02/03/18 hydrochlorothiazide 25 mg tablet 25 mg PO QAM 02/03/18 omeprazole 40 mg PO DAILY 08/10/18 Weight / BMI Weight Weight: 110.3 kg Body Mass Index (BMI) 35.6 ABG / Lab / Microbiology Data Result Diagrams: 02/07/21 05:52 02/06/21 06:10 Laboratory: Laboratory Results - last 24 hr 02/06/21 09:50: Troponin I High Sens 41.7 02/06/21 12:35: Troponin I High Sens 55.7 H* 02/07/21 05:52: WBC 9.8, RBC 4.18 L, Hgb 12.8, Hct 39.5, MCV 94.5, MCH 30.6, MCHC 32.4, RDW Std Deviation 49.8 H, RDW Coeff of Kary 14.3, Plt Count 292, MPV 10.7, Immature Gran % (Auto) 0.400, Neut % (Auto) 60.9, Lymph % (Auto) 28.0, [place] % (Auto) 6.6, Eos % (Auto) 3.6, Baso % (Auto) 0.5, Absolute Neuts (auto) 6.0, Absolute Lymphs (auto) 2.74, Nucleated RBC % 0 02/07/21 05:52: Phosphorus 2.5, Magnesium 2.1, Total Bilirubin 0.40, Direct Bilirubin 0.07, AST 14 L, ALT 31, Alkaline Phosphatase 66, Total Protein 6.4, Albumin 3.0 L, Globulin 3.4, Triglycerides 135, Cholesterol 179, LDL Cholesterol 105, VLDL Cholesterol 27, HDL Cholesterol 47 Radiography Diagnostic Testing: Radiology Impression Echocardiogram 02/06/21 09:35 Interpretation Summary The estimated ejection fraction is 60 %. No evidence for diastolic dysfunction. Ordering Physician: Nicole Garcia Referring Physician: Rosita Canas Performed By: Victoria Parkinson RDCS, RVT Discharge Plan Admission Admit Date/Time: 02/06/21 07:32 Primary Reason for Your Visit: PSBO Attending Provider: Nicole Garcia Primary Care Provider: Rosita Canas Consulting Providers: Freddy Lanier Discharge Orders/Prescriptions Prescriptions: No Action hydrochlorothiazide 25 mg tablet 25 mg PO QAM RF: 0 clonazepam 0.5 mg tablet 0.5 mg PO BID PRN (Reason: Anxiety) RF: 0 omeprazole 40 MG capsule,delayed release(DR/EC) 40 mg PO DAILY RF: 0 Referrals / Follow Up: Rosita Canas DO [Primary Care Provider] - Charges/Coding Visit Charges Inpatient E&M: 90338 Disch Hosp
--- NOTE | 2021-02-07 11:03 | CASEMGMT ---
SURESH PETERSON NOTE: Anticipate pt will be discharged home on Eliquis. SURESH PETERSON to room. Pt sitting on edge of bed. @ bedside. Introduced self and role of SURESH PETERSON. Eliquis card given to pt and instructed on use. They were made aware card will need to be activated prior to use. Questions answered. Pt denies having further questions. Anette WAGNER RN, CM
--- NOTE | 2021-02-07 15:18 | PN.CARD_ITS ---
Subjective Subjective No significant chest pain. Heart rate still on the high side. Objective Data Vital Signs: Vital Signs Temp Pulse Resp BP Pulse Ox 97.1 F L 113 H 16 125/73 H 97 02/07/21 14:56 02/07/21 14:56 02/07/21 14:56 02/07/21 14:56 02/07/21 14:56 Oxygen Delivery Method Room Air Weight: 243 lb 2.718 oz Body Mass Index (BMI) 35.6 Intake & Output: Intake and Output for Last 24 Hours 02/05/21 02/06/21 02/07/21 23:59 23:59 23:59 Intake Total 331.12 / 333.62 847.5 / 847.5 Balance 331.12 / 333.62 847.5 / 847.5 Lab / Micro Data Result Diagrams: 02/07/21 05:52 02/06/21 06:10 Labs: Laboratory Results - last 24 hr 02/07/21 05:52: WBC 9.8, RBC 4.18 L, Hgb 12.8, Hct 39.5, MCV 94.5, MCH 30.6, MCHC 32.4, RDW Std Deviation 49.8 H, RDW Coeff of Kary 14.3, Plt Count 292, MPV 10.7, Immature Gran % (Auto) 0.400, Neut % (Auto) 60.9, Lymph % (Auto) 28.0, [place] % (Auto) 6.6, Eos % (Auto) 3.6, Baso % (Auto) 0.5, Absolute Neuts (auto) 6.0, Absolute Lymphs (auto) 2.74, Nucleated RBC % 0 02/07/21 05:52: Phosphorus 2.5, Magnesium 2.1, Total Bilirubin 0.40, Direct Bilirubin 0.07, AST 14 L, ALT 31, Alkaline Phosphatase 66, Total Protein 6.4, Albumin 3.0 L, Globulin 3.4, Triglycerides 135, Cholesterol 179, LDL Cholesterol 105, VLDL Cholesterol 27, HDL Cholesterol 47 Rhythm Strip Rhythm Strip: A-fib Rate: 165 Ectopy: None Cardiology Labs/Tests 02/07/21 05:52: WBC 9.8, RBC 4.18 L, Hgb 12.8, Hct 39.5, MCV 94.5, MCH 30.6, MCHC 32.4, Plt Count 292, MPV 10.7, Immature Gran % (Auto) 0.400, Neut % (Auto) 60.9, Lymph % (Auto) 28.0, [place] % (Auto) 6.6, Eos % (Auto) 3.6, Baso % (Auto) 0.5, Absolute Neuts (auto) 6.0, Nucleated RBC % 0 02/07/21 05:52: Phosphorus 2.5, Magnesium 2.1, Total Bilirubin 0.40, Direct Bilirubin 0.07, Triglycerides 135, Cholesterol 179, LDL Cholesterol 105, VLDL Cholesterol 27, HDL Cholesterol 47 Rhythm: EKG: ECHO: Stress Test: Cardiac Cath: PCI: CT Surgery: Holter monitor: EPS: PPM: CXR: Chest CT Scan: Radiography Diagnostic Testing: Radiology Impression Echocardiogram 02/06/21 09:35 Interpretation Summary The estimated ejection fraction is 60 %. No evidence for diastolic dysfunction. Ordering Physician: Nicole Garcia Referring Physician: Rosita Canas Performed By: Victoria Parkinson RDCS, RVT Physical Exam Const alert and oriented x3 Orientation / Consciousness: awake HEENT normocephalic Eyes no scleral icterus Cardio Cardio Narrative: Irregular rhythm Extremity no pedal edema Skin no rashes or lesions noted Psych mental status grossly normal Assessment & Plan Assessment/Plan (1) Chest pressure: PLAN: Likely related to her A. fib with RVR. She could get a stress test as an outpatient. (2) Atrial fibrillation with RVR: PLAN: Increase Cardizem to 90 mg p.o. every 6 hours. Continue Eliquis. Agree with beta-yeni as well. If heart rate is better controlled and patient is able to tolerate the higher dose of Cardizem then potentially tomorrow she could be discharged home on 360 mg p.o. daily of Cardizem in addition to metoprolol.
[2021-02-07] MEDS: dilTIAZem 30 MG Tablet 90 MG PO ×2 (17:03→23:08)
[2021-02-08] VITALS (7 sets, daily range): BP systolic 95–114; BP diastolic 66–77; PULSE 82–110; RESP 18; TEMP 36.2–36.8; O2SAT 95–98
[2021-02-08] MEDS: dilTIAZem 30 MG Tablet 90 MG PO ×2 (05:14→11:45)
[2021-02-08] MEDS: 0.9% Saline Lock 10 ML Syringe IV (05:14)
[2021-02-08] MEDS: 0.9% Normal Saline 1,000 ML 999 ML IV (06:15)
[2021-02-08] MEDS: APIXABAN 5 MG TABLET PO (09:06)
[2021-02-08] MEDS: Metoprolol Tartrate 50 MG Tablet PO (09:06)
[2021-02-08] MEDS: Pantoprazole Sodium 40 MG Tablet PO (09:06)
--- NOTE | 2021-02-08 11:28 | DS.PCM_ITS ---
Providers Date of Admission: 02/06/21 Primary Care Physician: Dr. Rosita Canas, Consultations 02/06/21 09:35 Consult: Cardiology Routine Consulting Provider: Freddy Lanier Reason for Consult: afib EMERGENT Consult: No MD Notified: Yes Date Notified: 02/06/21 Time Notified: 08:32 Method of Notification: Text Reason For Visit: ATRIAL FIBRILLATION WITH RVR Diagnosis Discharge Diagnosis (1) Chest pressure: Status: Acute Code(s): R07.89 - Other chest pain (2) Atrial fibrillation with RVR: Status: Acute Code(s): I48.91 - Unspecified atrial fibrillation Medications at Discharge Home Medications clonazepam 0.5 mg tablet 0.5 mg PO BID PRN 02/03/18 omeprazole 40 mg PO DAILY 08/10/18 apixaban [Eliquis] 5 mg PO BID #60 tab 02/08/21 diltiazem HCl [Cardizem CD] 360 mg PO DAILY #30 cap 02/08/21 metoprolol tartrate 50 mg PO BID #60 tab 02/08/21 Hospital Course Operations None Procedures 2-D Echocardiogram Summary of Care Provided Minutes Spent on Discharge: 29 Hospital Course: is a 50-year-old female who presented to the emergency department [facility] on 02/06/2021 with a chief complaint of chest pain. She reported on admission that she was awakened from sleep at approximately 345 on the day of admission with acute onset chest pain/pressure that was substernal in nature. She reported that it was relieved and worsened by nothing. She had associated nausea diaphoresis and dyspnea but no but no vomiting or palpitations. Upon presentation she was found to have atrial fibrillation with rapid ventricular rate which was new. Her heart rates on presentation were upward of 170. Her vital signs were otherwise unremarkable. Her labs were unremarkable other than some mild hypokalemia which was replaced. Her TSH was 2.12. Her initial high-sensitivity troponin was 4.9 and when cycled and did show slight rise but with a normal echo we suspect this is most likely related to her rapid ventricular rate. She was admitted for her diagnosis and placed on a Cardizem drip and therapeutic Lovenox initially. An ejection fraction of 60% with no signs of diastolic dysfunction and no regional wall motion abnormalities. Her pulmonary artery systolic pressure was 30 mmHg. She was started on a beta-yeni and the Cardizem was weaned. Cardiology evaluated the patient and initiated Cardizem. With the initiation of Cardizem and metoprolol her hydrochlorothiazide was discontinued. Her heart rate control improved to the 80 to low 100's. I discussed the case with cardiology and they recommended disc charging her on Cardizem 360 mg daily and metoprolol 50 mg twice daily. She was started on Eliquis. Side effects of the medications were discussed with the patient she voiced understanding. I would recommend she obtain an outpatient polysomnography to rule out obstructive sleep apnea given her new onset A. fib in conjunction with her body habitus. Tobacco cessation was recommended. Prescriptions were sent to her pharmacy for these 3 medications. She was instructed to follow-up with cardiology as well as her PCP in 1 week after discharge. Discharge diagnoses: Atrial fibrillation with RVR Hypokalemia Elevated glucose-A1c 5.5 Troponin elevation GERD Anxiety Obesity-BMI 35.6 Tobacco abuse Physical Exam Const alert, oriented x3 and no apparent distress Constitutional Narrative: Middle-aged white female sitting up in a chair at the bedside, appears well, nontoxic General Appearance: cooperative, comfortable, well kempt and well developed Exam Limitations: no limitations Resp normal respiratory effort, no retractions, no use of accessory muscles and clear to auscultation bilaterally Auscultation: Negative for crackles, rales, rhonchi or wheezes Cardio S1 normal heart sound, S2 normal heart sound, no murmurs, no rub, no gallops, no clicks and no JVD GI normal to inspection, nondistended, normoactive bowel sounds, soft to palpation, non-tender and non-distended; Negative for hepatosplenomegaly Extremity normal to inspection, full ROM and no clubbing, cyanosis or edema Skin no petechiae and no mottling Neuro oriented x3 Sensorium / Orientation: awake and alert Weight / BMI Weight Weight: 109.5 kg Body Mass Index (BMI) 35.6 ABG / Lab / Microbiology Data Result Diagrams: 02/07/21 05:52 02/06/21 06:10 D/C Instructions Discharge Diet: No restrictions and Low fat / Low cholesterol Discharge Activity: Return to Normal Activity Return to work on: 02/09/21 Meaningful Use Info Meaningful Use Diagnoses (Choose all that apply): None applicable Discharge Plan Admission Admit Date/Time: 02/06/21 07:32 Primary Reason for Your Visit: Atrial Fibrillation Attending Provider: Nicole Garcia Primary Care Provider: Rosita Canas Consulting Providers: Freddy Lanier Discharge Orders/Prescriptions Prescriptions: New Eliquis 5 mg Tablet 5 mg PO BID Qty: 60 RF: 2 metoprolol tartrate 50 mg Tablet 50 mg PO BID Qty: 60 RF: 2 diltiazem HCl [Cardizem CD] 360 mg capsule,extended release 24hr 360 mg PO DAILY Qty: 30 RF: 2 Continued clonazepam 0.5 mg tablet 0.5 mg PO BID PRN (Reason: Anxiety) RF: 0 omeprazole 40 MG capsule,delayed release(DR/EC) 40 mg PO DAILY RF: 0 Discontinued hydrochlorothiazide 25 mg tablet 25 mg PO QAM RF: 0 Referrals / Follow Up: Rosita Canas DO [Primary Care Provider] - Within 2 Weeks Vikram Hernandez MD [STAFF PHYSICIAN] - In 1 Week Disposition Disposition (needs filled in before D/C Order can be placed): Home, Self Care Charges/Coding Visit Charges Inpatient E&M: 17680 Disch Hosp
--- NOTE | 2021-02-08 12:10 | PCM.DC ---
Discharge Instructions Diet Discharge Diet: No restrictions and Low fat / Low cholesterol Activity Return to work on:: 02/09/21 Follow Up Care Test Results: Test results from this visit will be discussed in further detail at your follow-up appointment, if applicable. Discharge Plan Admission Admit Date/Time: 02/06/21 07:32 Primary Reason for Your Visit: Atrial Fibrillation Attending Provider: Nicole Garcia Primary Care Provider: Rosita Canas Consulting Providers: Freddy Lanier Discharge Orders/Prescriptions Prescriptions: New Eliquis 5 mg Tablet 5 mg PO BID Qty: 60 RF: 2 metoprolol tartrate 50 mg Tablet 50 mg PO BID Qty: 60 RF: 2 diltiazem HCl [Cardizem CD] 360 mg capsule,extended release 24hr 360 mg PO DAILY Qty: 30 RF: 2 Continued clonazepam 0.5 mg tablet 0.5 mg PO BID PRN (Reason: Anxiety) RF: 0 omeprazole 40 MG capsule,delayed release(DR/EC) 40 mg PO DAILY RF: 0 Discontinued hydrochlorothiazide 25 mg tablet 25 mg PO QAM RF: 0 Referrals / Follow Up: Rosita Canas DO [Primary Care Provider] - Within 2 Weeks Vikram Hernandez MD [STAFF PHYSICIAN] - In 1 Week Disposition Disposition (needs filled in before D/C Order can be placed): Home, Self Care
== END 2021-02-08 13:09 | disposition home or self-care (01) | DRG 310 ==
LOC: ED 06:59 → ICU 08:44 → PCU 02-08 12:00
PROVIDERS: Admitting Provider Internal Medicine; Emergency Provider Emergency Medicine; PCP Family Medicine; Visit Provider Internal Medicine
DX: I48.91 Unspecified atrial fibrillation (principal); R07.89 Other chest pain; F41.9 Anxiety disorder, unspecified; I10 Essential (primary) hypertension; F17.210 Nicotine dependence, cigarettes, uncomplicated; E87.6 Hypokalemia; E66.9 Obesity, unspecified; R73.9 Hyperglycemia, unspecified; K21.9 Gastro-esophageal reflux disease without esophagitis; Z79.899 Other long term (current) drug therapy; Z68.35 Body mass index [BMI] 35.0-35.9, adult
CPT/HCPCS: 36415; 71045; 80048; 80061; 80076; 83036; 83735; 84100; 84443; 84484; 85025; 93005; 93306; 99251; 99285; 99406; J7030; A4216; G0463

== ENCOUNTER → 2021-02-18 13:49 | Outpatient (CLI) | payer OTHER, SELFPAY ==
[2021-02-13 13:34] VITALS: BMI 35.6
[2021-02-18 15:49] LABS: Anion Gap 7 (5-15); BUN 18 mg/dL (7-18); BUN/Creat Ratio 20.2 RATIO (10-20); Calcium,Total 8.8 mg/dL (8.5-10.1); Chloride 109 mmol/L (98-107); Creatinine, Serum 0.89 mg/dL (0.55-1.02); EST Glomerular Filtration Rate 71 mL/min (>60); Est Glom Filt Rate - Afr Amer 86 mL/min (>60); Glucose 82 mg/dL (74-106); Potassium 3.5 mmol/L (3.5-5.1); Sodium Level 140 mmol/L (136-145)
== END ==
PROVIDERS: PCP Family Medicine; Referring Provider Physician Assistant Medical; Visit Provider Physician Assistant Medical
DX: I48.91 Unspecified atrial fibrillation (principal); R07.89 Other chest pain; I10 Essential (primary) hypertension
CPT/HCPCS: 36415; 80048

== ENCOUNTER → 2021-03-10 10:25 | Day surgery (SDC) | payer OTHER, SELFPAY ==
[2021-02-13 13:34] VITALS: BMI 35.6
[2021-03-09 11:54] VITALS: BMI 37.0
--- NOTE | 2021-03-09 18:08 | HP.PCM_ITS ---
History and Physical Date of Admission: 03/10/21 [facility] [id number] [place], [place] [id number] OFFICE VISITDate of Service: 02/13/21 MR#:[id number]:[id number]: ANA MARIA MONTEJO #:[id number] Provider: TEVIN Wells/Sex: 50/F [facility]Signed HPI HPI History of Present Illness Details: This is a 50-year-old who presents here today for a hospital follow-up. She presented to the emergency room on February 06, 2021 with concerns over chest discomfort. She was noted to be in atrial fibrillation with RVR. She had a heart rate of 170. She was mildly hypokalemic, her thyroid was normal, she had a initially high sensitive troponin of 4.9 but with echocardiogram suspected it was most likely related to her high ventricular rate. Ejection fraction was noted to be 60%. Patient was started on beta-blockers and Cardizem as we. Heart rate at discharge was in the 80s to 100s. She was discharged home on Cardizem 360 mg a day and metoprolol 50 mg twice a day. She was started on Eliquis. She was discharged home on 02/08. Pt sts that she just does not feel right. At times she does feel that it is fast. She does have have chest pain but does not feel right. She finds that when she is exerting more that she is more SOB, this is newer since her Afib. She does occasionally have lightheadedness/dizziness. She does edema, this is new. She can tell that her BP is elevated. She is very anxious about her symptoms. 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: No Accompanied by: None Is patient in pain?: No Allergies morphine Adverse Reaction (Verified 02/13/21 13:33) Nausea/Vom/Diarrhea Medications clonazepam 0.5 mg tablet 0.5 mg PO BID PRN 02/03/18 [History Confirmed 02/13/21] omeprazole 40 mg PO DAILY 08/10/18 [History Confirmed 02/13/21] apixaban [Eliquis] 5 mg PO BID #60 tab 02/08/21 [Rx Confirmed 02/13/21] diltiazem HCl [Cardizem CD] 360 mg PO DAILY #30 cap 02/08/21 [Rx Confirmed 02/13/21] metoprolol tartrate 50 mg PO BID #60 tab 02/08/21 [Rx Confirmed 02/13/21] furosemide 40 mg tablet 40 mg PO DAILY #30 tab 02/13/21 [Rx Confirmed 02/13/21] lisinopril 10 mg tablet 10 mg PO DAILY #30 tab 02/13/21 [Rx Confirmed 02/13/21] PFSH Medical History Anemia Anxiety Atrial fibrillation (~02/06/21) Chest pain Ectopic Elevated blood sugar GERD (gastroesophageal reflux disease) HTN (hypertension) Hypertension Obesity Smoker Surgical History H/O hemorrhoidectomy History of cholecystectomy History of laparotomy History of total vaginal hysterectomy (TVH) (~08/17/18) S/P laparoscopic cholecystectomy S/P tonsillectomy S/P wrist surgery Family History Mother Asthma Breast cancer Cancer Diabetes Heart disease Hypertension Kidney disease Social History Smoking Status: Current every day smoker tobacco type: cigarettes alcohol intake: current alcohol intake frequency: holidays/special occasions only details: social substance use type: does not use caffeine: Yes what type of physical activity do you participate in: walking seatbelt use: always do you feel safe at home: Yes ROS Const Const: Negative for fatigue, weakness, headache(s), frequent falls, excessive sweating, weight gain or weight loss Eyes Eyes: Negative for blind spots, loss of peripheral vision, transient loss of vision, blurry vision, change in vision or double vision ENT ENT: Negative for headache(s), dizziness, tinnitus, Nosebleed/epistaxis or balance problems Cardio Chest Pain: Yes (just does not feel normal) Palpitations: Yes Edema: None Muscle aches with walking: None Resp Respiratory: Negative for SOB with activity, SOB at rest, SOB orthopnea\SOB lying down or Cough GI GI: Negative nausea, vomiting, heartburn, bloating, vomiting blood/hematemesis, bright, red blood in stools or black,tarry stools : Negative for hematuria Musc Musc: Negative for muscle aches/ myalgia, muscle weakness, joint pain or balance problems Skin Skin: Negative rash or wounds Neuro Neuro: Negative for dizziness, lightheadedness, near syncope, syncope, orthostatic symptoms, frequent falls, headache(s), weakness, confusion, memory loss, restless legs, blurry vision or double vision Damian Hematologic/Lymphatic: Negative for easy bleeding or easy bruising Endo Endo: Negative for fatigue, cold intolerance, heat intolerance or excessive sweating Psych Psych: Positive for anxiety; Negative for depression Allergy Allergy/Immunology: Negative for rash Cardiology Exam Const Appearance: cooperative, healthy appearing, comfortable, no acute distress and well developed Orientation: alert, awake and oriented x3 Head Head: normal to inspection Ears: hearing grossly normal bilaterally Nose: external nose normal Face and Sinus: face symmetric Mouth: oral mucosae normal, lip normal and moist mucous membranes Eyes General: appearance normal, both eyes and all related structures Eyelids: eyelids normal Conjunctivae: conjunctivae normal Pupils: PERRL EOM: EOM intact bilaterally Neck Neck: normal visual inspection and trachea midline; Negative no JVD Carotids: Negative bruit Chest Chest inspection: normal inspection of the chest Auscultation: Bilateral: Clear to Auscultation Cardio Palpation: normal PMI Rate: regular rate Rhythm: irregularly irregular Heart sounds: S1 normal and S2 normal; Negative rub, gallop or murmur GI GI: soft, no hepatosplenomegaly and bowel sounds present Neuro General: patient alert, patient awake, patient oriented x3 and CN's II-XI intact bilaterally Extremities Pulses: Normal: Right Posterior Tibial Pulse, Left Posterior Tibial Pulse, Right Radial Pulse and Left Radial Pulse Lower Extremity Edema: None: Bilateral Psych Psychological: normal affect Assessment and Plan Assessment and Plan (1) Atrial fibrillation with RVR: Status: Acute Orders: Orders: 12 Lead EKG performed by BMS 02/13/21 Cardioversion 02/13/21 Basic Metabolic Profile (BMP) 1 Week Nuclear Stress Test - Chemical 02/13/21 Plan - Rosa ABARCA, PA: For patient's chest pressure would like her to proceed with a stress test prior to being cardioverted. Once patient has been anticoagulated would like for patient to proceed with a cardioversion. She is agreeable with this. We will also have her start on Lasix. Suspect that we will likely be able to stop this when she is cardioverted. Patient Instructions: With your swelling i think that this is related to your cardizem- for now I will add lasix at 40 mg a day- you need to check you blood work next week I expect that this will be stopped after your cardioversion I will call you with a date and time of your cardioversion: Instructions for this are: Nothing to eat or drink after midnight You will need a catering driver that day In the morning take all of you morning medications except your lasix (2) Chest pressure: Status: Resolved Orders: Orders: Cardioversion 02/13/21 Basic Metabolic Profile (BMP) 1 Week Nuclear Stress Test - Chemical 02/13/21 Plan - Rosa ABARCA, PA: With patient's chest pressure and new diagnosis of atrial fibrillation like to proceed with a stress test. Feel that with her elevated heart rate and she is already on a lot of rate limiting medications feel that we should proceed with a medication stress test. (3) Hypertension: Orders: Orders: Cardioversion 02/13/21 Basic Metabolic Profile (BMP) 1 Week Nuclear Stress Test - Chemical 02/13/21 Plan - Rosa ABARCA, PA: Blood pressure is elevated. I am adding lisinopril. We will have her keep track of what her blood pressure readings are and will adjust accordingly. Patient Instructions: I am adding lisinopril 10 mg a day to help with your blood pressure- keep of log of your readings and bring to your next OV Plan Details Other Medications: New: furosemide (Lasix) 40 mg PO DAILY 30 tabs 1RF lisinopril 10 mg PO DAILY 30 tabs 6RF Follow Up: 6 Weeks (MMM) 02/13/21 (Please see if you can schedule cardioversion 03/10 and stress before she leaves for [place]) Coding Level of Care Code Off vis,est,level 4 Diagnoses Atrial fibrillation with RVR I48.91 Chest pressure R07.89 Hypertension I10 Coding Level of Care Code Off vis,est,level 4 Diagnoses Atrial fibrillation with RVR I48.91 Chest pressure R07.89 Hypertension I10 Supplemental Info Supplemental Information Echocardiogram 2020: The estimated ejection fraction is 60 %. No evidence for diastolic dysfunction. Labs: LDL Cholesterol 105 mg/dL (0-130) HDL Cholesterol 47 mg/dL (40-) Triglycerides 135 mg/dL (-199) VLDL Cholesterol 27 mg/dL (5-40) Diagnostics: Electrocardiogram Echocardiogram Chest X-Ray Pulmonary: No Data to Display 02/16/21 [id number]<Electronically signed by Rosa ABARCA>Date Rosa ABARCA Cosigner Signature:Date (if applicable) CC: Dr. Rosita Canas, DO ~ Assessment & Plan Addt'l Comments I have re-examined the patient. The patient has not yet completed her outpatient stress test due to scheduling related issues. Today, the patient is noted to be in sinus rhythm. Her case was reviewed with her. Her medications will be adjusted. This will include DC of her diltiazem and decreasing her Furosemide to 20 mg a day. She will continue her other medications. She will continue with her future outpatient office follow up visit. In the interim, she is in contact with [facility] to reschedule her stress test. The above was discussed /reviewed with the patient and her spouse. She was agreeable to this approach. This note was generated using a voice recognition system and there may be incorrect words, spelling or punctuation that were not noted when reviewing the office note prior to saving.
== END ==
PROVIDERS: PCP Family Medicine; Referring Provider Internal Medicine Cardiovascular Disease; Visit Provider Internal Medicine Cardiovascular Disease
DX: I48.91 Unspecified atrial fibrillation (principal); E87.6 Hypokalemia; Z53.09 Procedure and treatment not carried out because of other contraindication; Z79.01 Long term (current) use of anticoagulants; Z79.899 Other long term (current) drug therapy; K21.9 Gastro-esophageal reflux disease without esophagitis; I10 Essential (primary) hypertension; E66.9 Obesity, unspecified; F17.210 Nicotine dependence, cigarettes, uncomplicated; Z68.37 Body mass index [BMI] 37.0-37.9, adult
CPT/HCPCS: 93005

== ENCOUNTER → 2021-03-26 06:25 | Outpatient (CLI) | payer OTHER, SELFPAY ==
[2021-02-13 13:34] VITALS: BMI 35.6
--- NOTE | 2021-03-26 11:16 | STRESSREP_ITS ---
Stress Test Report Date: 03-26-2021 Procedure: Pharmacologic stress nuclear imaging study Indications: Chest pain; atrial fibrillation Consent: Per the patient Procedure: The patient underwent pharmacologic (Regadenoson 0.4mg ) evaluation with a peak heart rate of 83 beats per minute (48%predicted maximal heart rate) and a peak blood pressure of 122/84 mmHg. The baseline ECG demonstrated sinus bradycardia. The peak pharmacologic ECG demonstrated no obvious ECG changes. There were no cardiac dysrhythmias pretest, during pharmacologic infusion, or recovery. There was no complaint of chest discomfort during pharmacologic infusion or recovery. The examination was discontinued secondary to completion of protocol. Impression: 1. Pharmacologic (Regadenoson) evaluation 2. Peak pharmacologic ECG with no obvious ECG changes. 3. There were no cardiac dysrhythmias pretest, during pharmacologic infusion, or recovery. 4. Nuclear images pending Myocardial perfusion imaging study: Technique: The patient was injected with 14.7 millicuries of technetium 99m Cardiolite and subsequently rest SPECT Cardiolite nuclear imaging was obtained in the ho rizontal long, vertical long, and short axis views. The patient underwent pharmacologic (Regadenoson) evaluation with a peak heart rate of 83 beats per minute (48% percent predicted maximal heart rate) and a peak blood pressure of 122/84 mmHg. The patient was injected with 44.5 millicuries of technetium 99m Cardiolite and subsequently stress SPECT Cardiolite nuclear imaging was obtained in the horizontal long, vertical long, and short axis views. A gated Cardiolite study at peak stress was obtained. Interpretation: Rest and stress SPECT Cardiolite nuclear imaging status post realignment, no rmalization, and attenuation correction demonstrate relative uniform tracer uptake and myocardial perfusion appearing within normal limits. There is end systolic thickening and brightening. The gated Cardiolite study demonstrates myocardial thickening and inward wall motion. The reported LVEF is 62%. Impression: 1. Rest and stress SPECT Cardiolite nuclear imaging demonstrate relative uniform tracer uptake and myocardial perfusion appearing within normal limits. 2. The gated Cardiolite study reports an LVEF of 62%. This note was generated with [employer]ra[employer] software. It may contain incorrect words, spelling, and punctuation that were not noted in checking the note before signing.
== END ==
PROVIDERS: PCP Family Medicine; Referring Provider Physician Assistant Medical; Visit Provider Physician Assistant Medical
DX: I48.91 Unspecified atrial fibrillation (principal); R07.89 Other chest pain; I10 Essential (primary) hypertension
CPT/HCPCS: 78452; 93017; A9500; A4216; J2785

== ENCOUNTER 2021-07-30 08:13 | Outpatient (CLI) | payer OTHER, SELFPAY | END 2021-07-30 23:59 | disposition short-term general hospital (02) | LOC: PSN 08:15 | PROVIDERS: PCP Family Medicine; Referring Provider Nurse Practitioner Gerontology; Visit Provider Nurse Practitioner Gerontology | DX: I48.19 Other persistent atrial fibrillation (principal) | CPT/HCPCS: 93225; 93226 ==

== ENCOUNTER 2021-10-29 06:43 | Outpatient (CLI) | payer OTHER, SELFPAY ==
[2021-10-29 08:21] LABS: Absolute Lymphocyte Count 2.84 X10^3/uL (0.83-4.51); Absolute Neutrophil Count 3.4 X10^3/uL (2.0-7.7); Basophil# 0.04 X10^3/uL; Basophil% 0.6 % (0-1); Eosinophil# 0.41 X10^3/uL; Eosinophils% 5.7 % (0-5); Hematocrit 43.6 % (37-47); Hemoglobin 14.1 g/dL (12.0-15.0); Lymphocyte # 2.84 X10^3/ul (0.83-4.51); Lymphocyte % 39.3 % (19-41); Mean Corp Hgb Conc 32.3 g/dL (32-36); Mean Corpuscular Hgb 30.3 pg (27.0-32.0); Mean Corpuscular Volume 93.8 fL (81-99); Mean Platelet Vol. 10.3 fl (6.2-12.0); Monocyte# 0.54 X10^3/uL; Monocyte% 7.5 % (0-10); NRBC Flagged by Analyzer 0 % (0-5); Neutrophil # 3.37 X10^3/uL (2.7-7.7); Neutrophil % 46.6 % (47-70); Platelet Count 314 K/mm3 (150-450); RBC Distribution Width CV 13.6 % (11.6-14.6); RBC Distribution Width SD 46.5 fl (35.1-43.9); Red Blood Count 4.65 M/mm3 (4.2-5.4); White Blood Count 7.2 K/mm3 (4.4-11.0)
[2021-10-29 08:44] LABS: Anion Gap 4 (5-15); BUN 18 mg/dL (7-18); BUN/Creat Ratio 18.7 RATIO (10-20); Calcium,Total 9.3 mg/dL (8.5-10.1); Chloride 108 mmol/L (98-107); Creatinine, Serum 0.96 mg/dL (0.55-1.02); EST Glomerular Filtration Rate 65 mL/min (>60); Est Glom Filt Rate - Afr Amer 79 mL/min (>60); Glucose 110 mg/dL (74-106); Potassium 4.2 mmol/L (3.5-5.1); Sodium Level 140 mmol/L (136-145)
[2021-10-29 08:45] LABS: BNP,B-Type NATRIURETIC PEPTIDE 66.9 pg/mL (0-100)
--- NOTE | 2021-10-29 12:41 | PFT ---
INTRODUCTION: The patient is a 51-year-old female that presents for pulmonary function studies secondary to a diagnosis of dyspnea. Respiratory therapy reported good patient effort. Bronchodilators were used during testing. INTERPRETATION: Forced expiration spirometry demonstrates no evidence of a large airways obstructive ventilatory defect. There was no significant response to aerosolized bronchodilators. Spirograms are of good quality and plateau normally. Body plethysmography was performed and revealed a decreased TLC to 4.96 L, 83% of predicted, indicative of a mild restrictive ventilatory impairment. Diffusing capacity by single breath CO is within normal limits. IMPRESSION: Mild restrictive ventilatory impairment, likely secondary to body habitus.
== END 2021-10-29 23:59 | disposition home or self-care (01) ==
PROVIDERS: PCP Family Medicine; Referring Provider Nurse Practitioner Gerontology; Visit Provider Nurse Practitioner Gerontology
DX: R06.00 Dyspnea, unspecified (principal)
CPT/HCPCS: 36415; 80048; 83880; 85025; 94060; 94726; 94729

== ENCOUNTER → 2022-02-10 | Outpatient (CLI) | payer OTHER, SELFPAY | END | disposition home or self-care (01) | LOC: SL 21:42 | PROVIDERS: PCP Family Medicine; Visit Provider Nurse Practitioner Gerontology | DX: G47.10 Hypersomnia, unspecified (principal) | CPT/HCPCS: 95810 ==

== ENCOUNTER → 2022-04-22 | Outpatient (CLI) | payer OTHER, SELFPAY ==
--- NOTE | 2022-04-22 07:06 | BI_ITS ---
MAMMOGRAPHY - BILATERAL SCREENING REASON FOR EXAM: Female, 51 years old. Routine annual screening examination. PERTINENT HISTORY: Non-contributory. TECHNIQUE: Digital bilateral breast mynor (3D mammographic acquisition) in the CC and MLO projections. 2-D mediolateral oblique (MLO) and craniocaudad (CC) views of both breasts were obtained. CAD: Full Field Digital Mammography with Computer Added Detection was performed. COMPARISON: Comparison is made with prior outside examination of 05/26/2017. FINDINGS: Breast Composition: There are scattered areas of fibroglandular density. Stable asymmetrical breast tissue in the deep central medial aspect of the left breast. Correlation with ultrasound is recommended. Stable small benign-appearing bilateral axillary lymph nodes. No other significant abnormalities are identified. There has been no significant change since the prior study. BI/SCRN MAMM (CAD)W/MYNOR BILAT IMPRESSION: Stable bilateral screening mammogram. Targeted ultrasound correlation of the deep central medial aspect of the left breast is recommended for further evaluation. ASSESSMENT CATEGORY: BIRADS Category 0: Incomplete. Need additional imaging evaluation. A letter regarding these results will be sent to the patient by the facility within 30 days. Approximately 10% of breast cancers are not detected by mammography. A normal mammogram should not delay biopsy of a clinically suspicious abnormality. [id number] Electronically Signed: Donal Blake MD at 8:45 EDT ,
== END | disposition home or self-care (01) ==
LOC: OPBI 07:04
PROVIDERS: PCP Family Medicine; Visit Provider Family Medicine
DX: Z12.31 Encounter for screening mammogram for malignant neoplasm of breast (principal)
CPT/HCPCS: 77063; 77067

== ENCOUNTER → 2022-04-23 | Outpatient (CLI) | payer OTHER, SELFPAY ==
--- NOTE | 2022-04-23 15:30 | US_ITS ---
STUDY: ULTRASOUND BREAST - LEFT REASON FOR EXAM: Female, 51 years old. Abnormal screening mammogram. TECHNIQUE: Axial and longitudinal images of the LEFT breast were performed with a high resolution ultrasound transducer. # OF IMAGES: 34 COMPARISON: Comparison is made with prior mammogram dated 04/22/2022. FINDINGS: LEFT Breast: The entire medial aspect of the left breast was examined with ultrasound. There is homogeneous fibroglandular tissue. No sonographic abnormality is seen. US/Breast Limited Unilateral IMPRESSION: No sonographic abnormality is seen. ASSESSMENT CATEGORY: BIRADS Category 1: Negative. A letter regarding these results will be sent to the patient by the facility within 30 days. Electronically Signed: Donal Blake MD at 9:04 EDT ,
== END | disposition home or self-care (01) ==
LOC: OPUS 15:28
PROVIDERS: PCP Family Medicine; Visit Provider Family Medicine
DX: R92.8 Other abnormal and inconclusive findings on diagnostic imaging of breast (principal)
CPT/HCPCS: 76642

== ENCOUNTER 2022-05-26 16:17 | Outpatient (RCR) | payer OTHER, SELFPAY | END 2022-06-23 23:59 | LOC: NS 16:17 | PROVIDERS: PCP Family Medicine; Referring Provider Family Medicine; Visit Provider Family Medicine | DX: E66.9 Obesity, unspecified (principal); Z68.41 Body mass index [BMI] 40.0-44.9, adult | CPT/HCPCS: 97802 ==

== ENCOUNTER 2022-08-23 16:30 | Outpatient (RCR) | payer OTHER, SELFPAY | END 2022-08-24 23:59 | LOC: NS 16:30 | PROVIDERS: PCP Family Medicine; Referring Provider Family Medicine; Visit Provider Family Medicine | DX: Z71.3 Dietary counseling and surveillance (principal); E66.9 Obesity, unspecified; Z68.41 Body mass index [BMI] 40.0-44.9, adult | CPT/HCPCS: 97803 ==

== ENCOUNTER → 2022-11-01 | Outpatient (CLI) | payer OTHER, SELFPAY | END | disposition home or self-care (01) | PROVIDERS: PCP Family Medicine; Visit Provider Family Medicine | DX: R31.9 Hematuria, unspecified (principal) | CPT/HCPCS: 87077; 87086; 87088; 87186 ==

== ENCOUNTER → 2023-02-18 | Outpatient (CLI) | payer OTHER, SELFPAY ==
[2023-02-18 07:18] LABS: Absolute Lymphocyte Count 2.75 X10^3/uL (0.83-4.51); Absolute Neutrophil Count 4.2 X10^3/uL (2.0-7.7); Basophil# 0.06 X10^3/uL; Basophil% 0.7 % (0-1); Eosinophil# 0.39 X10^3/uL; Eosinophils% 4.8 % (0-5); Hemoglobin 13.6 g/dL (12.0-15.0); Lymphocyte # 2.75 X10^3/ul (0.83-4.51); Lymphocyte % 34.2 % (19-41); Mean Corp Hgb Conc 31.6 g/dL (32-36); Mean Corpuscular Hgb 30.2 pg (27.0-32.0); Mean Corpuscular Volume 95.6 fL (81-99); Monocyte# 0.59 X10^3/uL; Monocyte% 7.3 % (0-10); NRBC Flagged by Analyzer 0 % (0-5); Neutrophil # 4.23 X10^3/uL (2.7-7.7); Neutrophil % 52.6 % (47-70); Platelet Count 311 K/mm3 (150-450); RBC Distribution Width CV 13.5 % (11.6-14.6); RBC Distribution Width SD 47.8 fl (35.1-43.9); White Blood Count 8.1 K/mm3 (4.4-11.0)
[2023-02-18 07:39] LABS: ALB/GLOB Ratio 0.9 RATIO (0.9-2.4); AST(SGOT) 18 U/L (15-37); Alanine Aminotransfer ALT/SGPT 38 U/L (13-56); Albumin, Serum 3.4 g/dL (3.2-5.0); Alkaline Phosphatase 99 U/L (45-117); Anion Gap 6 (5-15); BUN 16 mg/dL (7-18); BUN/Creat Ratio 14.7 RATIO (10-20); Calcium,Total 9.5 mg/dL (8.5-10.1); Chloride 108 mmol/L (98-107); Cholesterol 249 mg/dL (200); Creatinine, Serum 1.09 mg/dL (0.55-1.02); EST Glomerular Filtration Rate 56 mL/min (>60); Est Glom Filt Rate - Afr Amer 68 mL/min (>60); Globulin 3.7 g/dL (2.2-4.2); Glucose 105 mg/dL (74-106); High Density Lipoprotein 68 mg/dL; Protein, Total 7.1 g/dL (6.4-8.2); Sodium Level 142 mmol/L (136-145); Triglycerides 116 mg/dL; Very Low Density Lipoprotein 23 mg/dL (5-40)
== END | disposition home or self-care (01) ==
LOC: LAB 06:52
PROVIDERS: PCP Family Medicine; Referring Provider Family Medicine; Visit Provider Family Medicine
DX: Z00.00 Encounter for general adult medical examination without abnormal findings (principal); I10 Essential (primary) hypertension; Z13.220 Encounter for screening for lipoid disorders; Z13.1 Encounter for screening for diabetes mellitus
CPT/HCPCS: 36415; 80053; 80061; 85025

== ENCOUNTER → 2023-02-24 | Outpatient (CLI) | payer OTHER, SELFPAY ==
[2023-02-24 09:28] LABS: Bacteria 0 SEEN /hpf (None Seen); Mucous, Urine 0 SEEN /hpf (<or=2+); Red Blood Cells-Urine 0 SEEN /hpf (0-5)
[2023-02-24 13:03] LABS: Erythrocyte Sedimentation Rate 10 mm/hr (0-30)
[2023-02-24 13:07] LABS: Color, Urine Yellow (Yellow); Glucose, Dipstick Normal (Normal); Ketone-Dipstick Negative (Negative); Leukocyte Esterase-Dipstick 25 /ul (Negative); Nitrite-Dipstick Negative (Negative); Occult Blood-Urine Negative /ul (Negative); Protein-Dipstick Negative (Negative); Urine Bilirubin Dipstick Negative (Negative); Urine Clarity Clear (Clear); Urine Urobilinogen Normal (Normal)
[2023-02-24 13:24] LABS: Hemoglobin A1c 5.6 % (3.8-5.6)
[2023-02-24 13:26] LABS: Squamous Epithelial Cells - UA 0-5 SEEN /hpf (5-10); White Blood Cells 0-5 SEEN /hpf (0-5)
[2023-02-25 12:46] LABS: Rheumatoid Factor < 10.0 IU/mL (<15)
[2023-02-25 13:08] LABS: ANTINUCLEAR ANTIBODIES DIRECT Negative (Negative); CCP IgG Antibodies 6 units (0-19)
== END | disposition home or self-care (01) ==
LOC: BFHLAB 09:21
PROVIDERS: PCP Family Medicine; Referring Provider Family Medicine; Visit Provider Family Medicine
DX: R30.0 Dysuria (principal); M25.50 Pain in unspecified joint; M79.10 Myalgia, unspecified site; R73.01 Impaired fasting glucose
CPT/HCPCS: 36415; 81001; 83036; 85652; 86038; 86140; 86200; 86225; 86235; 86431; 87086; 87088; 87186

== ENCOUNTER → 2023-05-30 | Outpatient (CLI) | payer OTHER, SELFPAY ==
--- NOTE | 2023-05-30 16:17 | RAD_ITS ---
STUDY: X-RAY - ABDOMEN/PELVIS REASON FOR EXAM: Female, 52 years old. Lower abdominal pain. TECHNIQUE: Single AP view of the abdomen / pelvis on 2 images. COMPARISON: None. FINDINGS: Normal visualized lung bases. Normal bowel gas pattern without disproportionate dilatation of bowel. Air seen to the rectum. . The visualized liver, spleen and kidneys are grossly normal in size and morphology. Cholecystectomy clips. Normal visualized osseous structures. RAD/Abdomen Single View IMPRESSION: No abnormality of the lower chest, abdomen or pelvis. Electronically Signed: Cheikh Carter MD at 9:24 EST ,
[2023-05-30 17:36] LABS: Absolute Lymphocyte Count 2.32 X10^3/uL (0.83-4.51); Absolute Neutrophil Count 4.8 X10^3/uL (2.0-7.7); Basophil# 0.04 X10^3/uL; Basophil% 0.5 % (0-1); Eosinophil# 0.29 X10^3/uL; Eosinophils% 3.6 % (0-5); Hematocrit 40.5 % (37-47); Hemoglobin 12.8 g/dL (12.0-15.0); Lymphocyte # 2.32 X10^3/ul (0.83-4.51); Lymphocyte % 28.6 % (19-41); Mean Corp Hgb Conc 31.6 g/dL (32-36); Mean Corpuscular Volume 94.8 fL (81-99); Mean Platelet Vol. 10.2 fl (6.2-12.0); Monocyte# 0.62 X10^3/uL; Monocyte% 7.6 % (0-10); NRBC Flagged by Analyzer 0 % (0-5); Neutrophil # 4.81 X10^3/uL (2.7-7.7); Neutrophil % 59.3 % (47-70); Platelet Count 307 K/mm3 (150-450); RBC Distribution Width CV 13.5 % (11.6-14.6); RBC Distribution Width SD 47.8 fl (35.1-43.9); Red Blood Count 4.27 M/mm3 (4.2-5.4); White Blood Count 8.1 K/mm3 (4.4-11.0)
[2023-05-30 18:19] LABS: ALB/GLOB Ratio 0.9 RATIO (0.9-2.4); AST(SGOT) 11 U/L (15-37); Alanine Aminotransfer ALT/SGPT 26 U/L (13-56); Albumin, Serum 3.3 g/dL (3.2-5.0); Alkaline Phosphatase 99 U/L (45-117); Anion Gap 7 (5-15); BUN 17 mg/dL (7-18); BUN/Creat Ratio 20.3 RATIO (10-20); Chloride 106 mmol/L (98-107); Creatinine, Serum 0.84 mg/dL (0.55-1.02); EST Glomerular Filtration Rate 76 mL/min (>60); Est Glom Filt Rate - Afr Amer 92 mL/min (>60); Globulin 3.7 g/dL (2.2-4.2); Glucose 96 mg/dL (74-106); Potassium 3.9 mmol/L (3.5-5.1); Sodium Level 139 mmol/L (136-145)
== END | disposition home or self-care (01) ==
PROVIDERS: PCP Nurse Practitioner Family; Referring Provider Nurse Practitioner Family; Visit Provider Nurse Practitioner Family
DX: R10.30 Lower abdominal pain, unspecified (principal)
CPT/HCPCS: 36415; 74018; 80053; 85025

== ENCOUNTER → 2023-06-21 | Outpatient (CLI) | payer OTHER, SELFPAY ==
--- NOTE | 2023-06-21 16:20 | US_ITS ---
STUDY: ULTRASOUND OF THE FEMALE PELVIS - COMPLETE REASON FOR EXAM: Female, 53 years old. PELVIC PAIN LMP: TECHNIQUE: Transabdominal and transvaginal TECHNICAL QUALITY: Adequate. COMPARISON: None. FINDINGS: The uterus is nonvisualized consistent with hysterectomy The right ovary is visualized. The right ovary measures 3.3 x 2.2 x 1.8 cm. There is a cyst measuring approximately 1.1 x 1.2 x 1.1 cm There is no visualized right adnexal mass or complex lesion. There is normal arterial and normal venous vascularity. Left ovary is poorly visualized due to bowel gas producing artifact.. There is no adnexal mass.. There is no fluid in the cul-de-sac. The pre void volume of the bladder was 62.02 ml. US/Pelvic w/ Transvaginal IMPRESSION: Small right ovarian cyst status post hysterectomy.. Suboptimal visualization of the left ovary without definitive evidence for adnexal mass. MRI would be helpful for more definitive evaluation however if clinical concern for left adnexal mass Electronically Signed: Raymundo Walter MD at 19:33 EST ,
== END | disposition home or self-care (01) ==
LOC: US 16:19
PROVIDERS: PCP Family Medicine; Referring Provider Nurse Practitioner Women's Health; Visit Provider Nurse Practitioner Women's Health
DX: R10.2 Pelvic and perineal pain (principal)
CPT/HCPCS: 76830; 76856

== ENCOUNTER → 2023-06-22 | Outpatient (CLI) | payer OTHER, SELFPAY ==
--- NOTE | 2023-06-22 08:01 | BI_ITS ---
MAMMOGRAPHY - BILATERAL SCREENING REASON FOR EXAM: Female, 53 years old. Routine annual screening examination. PERTINENT HISTORY: Mother with breast cancer. TECHNIQUE: Digital bilateral breast mynor (3D mammographic acquisition) in the CC and MLO projections. 2-D mediolateral oblique (MLO) and craniocaudad (CC) views of both breasts were obtained. CAD: Full Field Digital Mammography with Computer Added Detection was performed. COMPARISON: Comparison is made with prior study dated April 22, 2022. FINDINGS: Breast Composition: There are scattered areas of fibroglandular density. There are no dominant masses or suspicious calcifications. Stable asymmetrical breast tissue in the deep central medial aspect of the left breast. Stable fat-containing bilateral axillary lymph nodes. No other significant abnormalities are identified. There has been no significant change since the prior study. BI/SCRN MAMM (CAD)W/MYNOR BILAT IMPRESSION: Stable bilateral screening mammogram. Yearly follow-up mammogram recommended. (A) ASSESSMENT CATEGORY: BIRADS Category 2: Benign. A letter regarding these results will be sent to the patient by the facility within 30 days. Approximately 10% of breast cancers are not detected by mammography. A normal mammogram should not delay biopsy of a clinically suspicious abnormality. [id number] Electronically Signed: Donal Blake MD at 9:18 EST ,
== END | disposition home or self-care (01) ==
LOC: OPBI 08:00
PROVIDERS: PCP Family Medicine; Referring Provider Nurse Practitioner Women's Health; Visit Provider Nurse Practitioner Women's Health
DX: Z12.31 Encounter for screening mammogram for malignant neoplasm of breast (principal)
CPT/HCPCS: 77063; 77067

== ENCOUNTER → 2023-12-22 | Outpatient (CLI) | payer OTHER, SELFPAY ==
--- NOTE | 2023-12-22 07:17 | CT_ITS ---
STUDY: CT ABDOMEN WITHOUT CONTRAST REASON FOR EXAM: Female, 53 years old. R/O ABDOMINAL HERNIA VS GI MASS. Postprandial pressure. RADIATION DOSAGE (If Supplied By Facility): CTDIvol = ( 23.91 ) mGy, DLP = ( 955.66 ) mGycm TECHNIQUE: Transaxial images were obtained without intravenous contrast, and oral contrast. Sagittal and coronal images were reconstructed. Individualized dose optimization techniques were used for this CT. COMPARISON: None. FINDINGS: The visualized lung bases are unremarkable. Right coronary artery calcification. Normal liver. The gallbladder is contracted. Normal spleen. Normal pancreas. Normal bilateral adrenal glands. Normal right kidney. Normal left kidney. Normal visualized stomach. Normal small intestine. Normal colon. The appendix is visualized and appears normal. Normal abdominal aorta. Normal inferior vena cava. Normal retroperitoneum. Normal abdominal wall. There are mild degenerative changes of the visualized lumbar spine. CT/Abdomen without IV Contrast IMPRESSION: No acute abnormality seen Electronically Signed: Donal Blake MD at 13:36 EDT ,
== END | disposition home or self-care (01) ==
PROVIDERS: PCP Family Medicine; Referring Provider Nurse Practitioner Family; Visit Provider Nurse Practitioner Family
DX: R10.10 Upper abdominal pain, unspecified (principal)
CPT/HCPCS: 74150

== ENCOUNTER → 2024-02-28 | Outpatient (CLI) | payer OTHER, SELFPAY ==
[2024-02-28 07:34] LABS: Absolute Lymphocyte Count 2.81 X10^3/uL (0.83-4.51); Absolute Neutrophil Count 3.7 X10^3/uL (2.0-7.7); Basophil# 0.06 X10^3/uL; Basophil% 0.8 % (0-1); Eosinophil# 0.36 X10^3/uL; Eosinophils% 4.7 % (0-5); Hemoglobin 12.5 g/dL (12.0-15.0); Lymphocyte # 2.81 X10^3/ul (0.83-4.51); Mean Corp Hgb Conc 32.1 g/dL (32-36); Mean Corpuscular Hgb 30.3 pg (27.0-32.0); Mean Corpuscular Volume 94.7 fL (81-99); Mean Platelet Vol. 9.9 fl (6.2-12.0); Monocyte# 0.61 X10^3/uL; NRBC Flagged by Analyzer 0 % (0-5); Neutrophil # 3.74 X10^3/uL (2.7-7.7); Neutrophil % 49.2 % (47-70); Platelet Count 299 K/mm3 (150-450); RBC Distribution Width CV 14.7 % (11.6-14.6); RBC Distribution Width SD 51.1 fl (35.1-43.9); Red Blood Count 4.12 M/mm3 (4.2-5.4); White Blood Count 7.6 K/mm3 (4.4-11.0)
[2024-02-28 08:00] LABS: ALB/GLOB Ratio 0.9 RATIO (0.9-2.4); AST(SGOT) 15 U/L (15-37); Alanine Aminotransfer ALT/SGPT 36 U/L (13-56); Albumin, Serum 3.1 g/dL (3.2-5.0); Alkaline Phosphatase 94 U/L (45-117); Anion Gap 4 (5-15); BUN 19 mg/dL (7-18); BUN/Creat Ratio 18.8 RATIO (10-20); Calcium,Total 8.8 mg/dL (8.5-10.1); Chloride 114 mmol/L (98-107); Cholesterol 195 mg/dL (200); Creatinine, Serum 1.01 mg/dL (0.55-1.02); EST Glomerular Filtration Rate 61 mL/min (>60); Est Glom Filt Rate - Afr Amer 74 mL/min (>60); Globulin 3.4 g/dL (2.2-4.2); Glucose 113 mg/dL (74-106); High Density Lipoprotein 60 mg/dL; Potassium 4.2 mmol/L (3.5-5.1); Protein, Total 6.5 g/dL (6.4-8.2); Sodium Level 145 mmol/L (136-145); Triglycerides 138 mg/dL; Very Low Density Lipoprotein 28 mg/dL (5-40)
== END | disposition home or self-care (01) ==
LOC: LAB 07:04
PROVIDERS: PCP Family Medicine; Referring Provider Family Medicine; Visit Provider Family Medicine
DX: Z00.00 Encounter for general adult medical examination without abnormal findings (principal); I10 Essential (primary) hypertension; Z13.220 Encounter for screening for lipoid disorders; Z13.1 Encounter for screening for diabetes mellitus; Z51.81 Encounter for therapeutic drug level monitoring
CPT/HCPCS: 36415; 80053; 80061; 85025

== ENCOUNTER → 2024-04-04 | Outpatient (CLI) | payer OTHER, SELFPAY ==
--- NOTE | 2024-04-04 08:50 | RDU_ITS ---
Reason For Study: Mesentric Artery Ischemia Aorta Mid Abdominal Aorta 1.85 x 1.90 cm . Mid Abdominal Aorta PSV is 100.8 cm/sec . Celiac Artery - 242.6/80.6 cm/s Hepatic A Prox - 125.9/47.4 cm/s Splenic A Prox -204.4/71.3 cm/s SMA HUGO - 210.8/52.4 cm/s SMA Prox - 163.4/33.8 cm/s SMA Prox W/ Insp - 144.8/30.4 cm/s SMA Mid - 173.7/44.0 cm/s SMA Dist - 163.4/37.2 cm/s REGI Prox - 245.3/50.8 cm/s. Procedures Mesenteric Artery Duplex w/ B-Mode, Color and Pulsed Wave Doppler. Study was technically difficult. VL/Renal Artery Duplex Ultrasound Interpretation Summary Celiac artery patent with normal velocities and no evidence of stenosis. Superior mesenteric artery patent with normal velocities and no evidence of suellen nosis. Inferior mesenteric artery patent Ordering Physician: Mickey Escobar Referring Physician: Mickey Escobar Performed By: Max Vincent RVT
== END | disposition home or self-care (01) ==
PROVIDERS: PCP Family Medicine; Referring Provider Internal Medicine; Visit Provider Internal Medicine
DX: K55.9 Vascular disorder of intestine, unspecified (principal)
CPT/HCPCS: 93975

== ENCOUNTER → 2024-04-09 | Outpatient (CLI) | payer OTHER, SELFPAY ==
--- NOTE | 2024-04-09 11:29 | NM_ITS ---
CLINICAL: 53-year-old female with history of abdominal pain. SEMI-SOLID PHASE 99m Tc SULFUR COLLOID GASTRIC EMPTYING STUDY COMPARISON: None available FINDINGS: The patient was administered 1.2 mCi of 99m Tc sulfur colloid mixed with oatmeal and consumed per os. Image acquisitions in the anterior-posterior projections were obtained for 60 minutes. There is prompt visualization of the stomach. There is no gastroesophageal reflux identified. The T ? raw data emptying was calculated to be 22.32 minutes, (Normal: 12-56 minutes). NM/Gastric Emptying Study IMPRESSION: 1. NORMAL 99m Tc sulfur colloid semi-solid phase (oatmeal) gastric emptying imaging examination. A. There is normal and preserved semi-solid phase gastric emptying compared to normal controls. (Veronica et al, J Nucl Med Tech 38: 186, 2010). Electronically Signed: Faustino Collier DO at 22:22 EDT ,
== END | disposition home or self-care (01) ==
PROVIDERS: PCP Family Medicine; Referring Provider Family Medicine; Visit Provider Family Medicine
DX: R10.9 Unspecified abdominal pain (principal); R14.0 Abdominal distension (gaseous)
CPT/HCPCS: 78264; A9541

== ENCOUNTER → 2024-05-11 | Outpatient (CLI) | payer OTHER, SELFPAY ==
--- NOTE | 2024-05-11 15:47 | RAD_ITS ---
STUDY: X-RAY CHEST REASON FOR EXAM: Female, 53 years old. cough, fatigue TECHNIQUE: PA and lateral COMPARISON: February 08, 2021 FINDINGS: The lungs are clear and expanded. There is no demonstrated pleural abnormality. Normal size heart. Normal mediastinum and cas. Normal visualized pulmonary arteries. Normal visualized aortic arch and descending thoracic aorta. Dorsal spine demonstrates degenerative change. Normal visualized ribs, clavicles, and shoulders. There is no demonstrated abnormality of the visualized soft tissue structures of the upper abdomen. No significant change since prior study RAD/Chest PA and Lateral IMPRESSION: No acute cardiopulmonary pathology Electronically Signed: Raymundo Walter MD at 16:13 EDT ,
== END | disposition home or self-care (01) ==
LOC: MTRAD 15:47
PROVIDERS: PCP Family Medicine; Referring Provider Physician Assistant; Visit Provider Physician Assistant
DX: R05.9 Cough, unspecified (principal)
CPT/HCPCS: 71046

== ENCOUNTER → 2025-02-19 | Outpatient (CLI) | payer OTHER, SELFPAY ==
--- OUTSIDE RECORDS SUMMARY | 2025-02-19 06:44 | XMS RPT_ITS | CCD ---
Author Organization [facility] Care Team Providers Care Clinical Project Manager Name Role Phone ROSITA CANAS Unavailable Unavailable KENYA BAZZI (CNC MAINTENANCE TECHNICIAN) Unavailable UnavailSURESH Del Toro Unavailable Unavailable Dr. Rosita Canas Primary Care Provider Dr. Rosita Canas Referring Provider Devonte CNC MAINTENANCE TECHNICIAN, CNC MAINTENANCE TECHNICIAN-C Ami Attending Provider Devonte CNC MAINTENANCE TECHNICIAN, CNC MAINTENANCE TECHNICIAN-C Ami Referring Provider Devonte ONEAL, CNC MAINTENANCE TECHNICIAN-C Ami Other Provider Dr. Orion Toscano Attending Provider [phone] Rosita Caans Primary Care Provider Dr. Rosita Canas Referring Provider [phone] Devonte ONEAL, CNC MAINTENANCE TECHNICIAN-C Ami Attending Provider Dr. Rosita Canas Primary Care Provider [phone] Jose Guadalupe ONEAL, CNC MAINTENANCE TECHNICIAN-C Berta Attending Provider Dr. Rosita Canas Primary Care Provider Dr. Rosita Canas Referring Provider Jose Guadalupe ONEAL, CNC MAINTENANCE TECHNICIAN-C Berta Attending Provider Miles ABARCA, TEVIN Ruiz Attending Provider Dr. Rosita Canas Primary Care Provider Dr. Rosita Canas Referring Provider Dr. Vikram Hernandez Attending Provider Dr. Rosita Canas Primary Care Provider Dr. Rosita Canas Referring Provider Jose Guadalupe CNC MAINTENANCE TECHNICIAN, CNC MAINTENANCE TECHNICIAN-C Berta Attending Provider Dr. Rosita Canas Primary Care Provider [phone] Floresita, Dr. Becker Referring Provider Jose Guadalupe CNC MAINTENANCE TECHNICIAN, CNC MAINTENANCE TECHNICIAN-C Berta Attending Provider Flor CNC MAINTENANCE TECHNICIAN, CNC MAINTENANCE TECHNICIAN-C Vincenzo Horn Attending Provider [place] CNC MAINTENANCE TECHNICIAN, CNC MAINTENANCE TECHNICIAN-C Camryn Attending Provider [phone] Floresita, Dr. Becker Primary Care Provider Floresita, Dr. Becker Referring Provider Floresita DO, Rosita Noble Primary Care Provider Thomae DO, Mickey R Unavailable Dr. Rosita Canas DO Primary Care Provider [phone] Floresita RIZZO, Dr. Becker Referring Provider Flor CNC MAINTENANCE TECHNICIAN-Vincenzo Jimenez Attending Provider [phone] Malys, Rosita Attending Unavailable Malys, Rosita Primary Care Unavailable Adan Aquino Attending Unavailable Adan Aquino Referring Unavailable Malys, Rosita Primary Care Unavailable Malys, Rosita Referring Unavailable Malys, Rosita Primary Care Unavailable Vincenzo Ray Attending Unavailable Malys, Rosita Primary Care Unavailable Amando Tellez Attending Unavailable Thomae, Mickey Referring Unavailable Berta Shi NP Attending Unavailable Malys, Rosita Referring Unavailable Malys, Rosita Primary Care Unavailable Adan Aquino Attending Unavailable Malys, Rosita Referring Unavailable Malys, Rosita Primary Care Unavailable Malys, Rosita Attending Unavailable Malys, Rosita Referring Unavailable Malys, Rosita Primary Care Unavailable Thomae, Mickey Referring Unavailable Malys, Rosita Primary Care Unavailable Thomae, Mickey Attending Unavailable Malys, Rosita Attending Unavailable Malys, Rosita Referring Unavailable Malys, Rosita Primary Care Unavailable Allergies Allergy Classification Reported Allergen(s) Allergy Type Date of Onset Reaction(s) Facility (11 sources) Morphine Drug Allergy 2 Nausea/Vom/Diar violeta [facility] (1 source) Morphine Drug Allergy [facility] Repository Medications Current Medications Medication Drug Class(es) Dates Sig (Normalized) Sig (Original) acetaminophen 500 mg oral tablet (2 sources) take 1 tablet by mouth every six hours as needed acetaminophen (Tylenol) 500 mg tablet Take 1 tablet (500 mg) by mouth every 6 hours if needed for mild pain (1 - 3). Active apixaban 5 mg oral tablet (20 sources) Factor Xa Inhibitor Start: 02-14-2024 take 1 tablet by mouth every twelve hours Eliquis 5 mg tablet Take 1 tablet (5 mg) by mouth every 12 hours. 02/14/2024 Active Start: 02-08-2021 End: 01-22-2025 take 1 tablet by mouth twice daily Apixaban (Eliquis) 5 mg tablet Active 0 .ROUTE .COMPLEX 180 January 22, 2025 9:09am TAKE 1 TAB BY MOUTH TWICE DAILY clonazePAM 0.5 mg oral tablet (13 sources) Benzodiazepine Start: 11-29-2023 take 1 tablet by mouth once daily clonazePAM (KlonoPIN) 0.5 mg tablet Take 1 tablet (0.5 mg) by mouth once daily. 11/29/2023 Active Start: 02-03-2018 take 1 tablet by kerrie twice daily as needed for anxiety Clonazepam 0.5 mg tablet Active 0.5 mg PO TWICE A DAY as needed for Anxiety February 03, 2018 12:00am furosemide 20 mg oral tablet (20 sources) Loop Diuretic Start: 01-27-2024 take 2 tablets by mouth once daily furosemide (Lasix) 20 mg tablet Take 2 tablets (40 mg) by mouth once daily. 01/27/2024 Active Start: 03-31-2021 End: 07-26-2024 Furosemide 20 mg tablet Acti ve 0 .ROUTE .COMPLEX 90 July 26, 2024 11:46am TAKE 1 TABLET DAILY Start: 03-10-2021 End: 03-31-2021 Furosemide (Lasix) 40 mg tab let Discontinued 20 mg PO DAILY 30 March 10, 2021 11:46am March 31, 2021 1:20pm Start: 02-13-2021 End: 03-10-2021 take 1 tablet by mouth once daily Furosemide (Lasix) 40 mg tablet Discontinued 40 mg PO DAILY 30 February 13, 2021 12:00am March 10, 2021 11:46am ibuprofen 200 mg oral tablet (2 sources) Nonsteroidal Anti-inflammatory Drug take 1 tablet by mouth every six hours ibuprofen 200 mg tablet Take 1 tablet (200 mg) by mouth every 6 hours. Active metoprolol tartrate 50 mg oral tablet (20 sources) beta-Adrenergic Nathan Start: 07-26-19 Metoprolol Tartrate 50 mg tablet Active 0 .ROUTE .COMPLEX 180 July 26, 2024 11:46am TAKE 1 TABLET TWICE A DAY Start: 02-08-2021 End: 07-26-2024 take 1 tablet by mouth twice daily metoprolol tartrate (Lopressor) 50 mg tablet Take 1 tablet by mouth 2 times a day. 01/27/2024 Active omeprazole 40 mg delayed release oral capsule (14 sources) Proton Pump Inhibitor Start: 06-05-2024 End: 06-05-2025 take 1 capsule by mouth twice daily Omeprazole 40 mg capsule,delayed release(DR/EC) Active 40 mg PO TWICE A DAY January 22, 2025 8:38am GERD Start: 08-10-2018 End: 01-22-2025 take 1 capsule by mouth once daily Omeprazole 40 MG capsule,delayed release(DR/EC) Discontinued 40 mg PO DAILY August 10, 2018 1:00am January 22, 2025 8:39am GERD potassium chloride 10 meq extended release oral capsule (20 sources) Start: 07-26-2024 Potassium Chlo ride 10 mEq capsule, extended release Active 0 .ROUTE .COMPLEX 90 July 26, 2024 11:46am TAKE 1 CAPSULE DAILY Start: 01-27-2024 take 1 capsule by mo [facility] once daily potassium chloride ER (Micro-K) 10 mEq ER capsule Take 1 capsule (10 mEq) by mouth once daily. 01/27/2024 Active Start: 08-01-2023 End: 07-26-2024 Potassium Chloride 10 mEq ca psule, extended release Discontinued 0 .ROUTE .COMPLEX 90 August 01, 2023 9:03am July 26, 2024 11:46am TAKE 1 CAPSULE DAILY Start: 02-18-2021 End: 08-01-2023 take 1 capsule by mouth once daily Potassium Chloride 10 mEq capsule, extended release Discontinued 10 meq PO DAILY 90 August 05, 2022 4:32pm August 01, 2023 9:03am Semaglutide (Weight Loss) (1 source) Start: 01-22-2025 Semaglutide (W eight Loss) (Indira) 0.25 mg/0.5 mL pen injector Active 0.25 mg SC EVERY WEEK 2 0 January 22, 2025 12:00am administer weeks 1 through 4 of therapy Completed/Discontinued Medications Medication Drug Class(es) Dates Sig (Normalized) Sig (Original) acetaminophen 325 mg / oxyCODONE hydrochloride 5 mg oral tablet (20 sources) Opioid Agonist Start: 08-17-2018 End: 08-24-2018 Oxycodone-Acetaminoph en 1 TABLET tablet Discontinued 1 - 2 {tbl} PO EVERY 4 HOURS NEEDED as needed for Pain 15 7 August 17, 2018 1:00am August 23, 2018 1:00am August 24, 2018 1:07am Other acute postprocedural pain Start: 08-17-2018 End: 08-24-2018 take 1 tablet by mouth every four hours as needed Oxycodone-Acetaminophen Discontinued 1 - 2 TABLET PO EVERY 4 HOURS NEEDED 15 7 August 17, 2018 12:00am August 24, 2018 12:07am Start: 03-06-2018 End: 08-07-2018 Oxycodone-Acetaminophen 1 TA BLET tablet Discontinued 1 - 2 {tbl} PO EVERY 6 HOURS NEEDED as needed for Pain 40 5 March 06, 2018 12:00am August 07, 2018 11:03am Postoperative pain Other acute postprocedural pain Start: 03-06-2018 End: 08-07-2018 take 1 tablet by mouth every six hours as needed Oxycodone-Acetaminophen Discontinued 1 - 2 TABLET PO EVERY 6 HOURS NEEDED 40 5 March 05, 2018 11:00pm August 07, 2018 10:03am amoxicillin 500 mg oral capsule (7 sources) Penicillin-class Antibacterial Start: 08-16-2022 End: 08-26-2022 take 1 capsule by mouth three times daily Amoxicillin 500 mg capsule Discontinued 500 mg PO THREE TIMES A DAY 30 10 0 August 16, 2022 1:00am August 25, 2022 1:00am August 26, 2022 1:05am amoxicillin 875 mg / clavulanate 125 mg oral tablet (7 sources) Penicillin-class Antibacterial Start: 05-11-2024 End: 01-10-2025 Amoxicillin-Pot Clavulanate 875-125 mg tablet Discontinued 1 {tbl} PO TWICE A DAY May 11, 2024 12:00am January 10, 2025 4:49pm Start: 10-05-2022 End: 10-15-2022 Amoxicillin-Pot Clavulanate 875-125 mg tablet Discontinued 1 {tbl} PO Q12H 20 10 October 05, 2022 12:00am October 14, 2022 12:00am October 15, 2022 12:05am Acute sinusitis, unspecified Start: 10-05-2022 End: 10-15-2022 take 1 tablet by mouth every twelve hours Amoxicillin-Pot Clavulanate Discontinued 1 TABLET PO Q12H 13 05October 04, 2022 11:00pm October 14, 2022 11:05pm benzocaine 140 mg/ml / butamben 20 mg/ml / tetracaine 20 mg/ml mucosal spray (1 source) Silvia Local Anesthetic, Standardized Chemical Allergen Start: 07-03-2024 End: 07-03-2024 Topical, As needed, Starting on Tue07/03/24 at 1021, Intraprocedure benzonatate 200 mg oral capsule (1 source) Non-narcotic Antitussive Start: 05-11-2024 End: 01-10-2025 take 1 capsule by mouth three times daily as needed for cough Benzonatate 200 mg capsule Discontinued 200 mg PO THREE TIMES A DAY as needed for cough May 11, 2024 12:00am January 10, 2025 4:49pm 12 hr buPROPion hydrochloride 150 mg extended release oral tablet (2 sources) Aminoketone Start: 06-03-2023 End: 06-28-2024 take 1 tablet by mouth every twelve hours buPROPion SR (Wellbutrin SR) 150 mg 12 hr tablet Take 1 tablet (150 mg) by mouth every 12 hours. 06/03/2023 06/28/2024 Discontinued (Med List Cleanup) dexamethasone 6 mg oral tablet (8 sources) Corticosteroid Start: 05-10-2022 End: 08-04-2022 take 1 tablet by mouth once daily Dexamethasone 6 mg tablet Discontinued 6 mg PO DAILY May 10, 2022 12:00am August 04, 2022 5:04pm dicyclomine hydrochloride 10 mg oral tablet (1 source) Anticholinergic Start: 03-01-2024 End: 01-22-2025 take 1 capsule by mouth twice daily Dicyclomine 10 mg capsule Discontinued 10 mg PO TWICE A DAY March 01, 2024 12:00am January 22, 2025 8:38am 24 hr dilTIAZem hydrochloride 360 mg extended release oral capsule (20 sources) Calcium Channel Nathan Start: 07-07-2021 End: 03-02-2023 take 1 capsule by mouth once daily, then take 1 capsule by mouth every twenty-four hours Diltiazem Hcl (Cardizem Cd) 360 mg capsule,extended release 24hr Discontinued 360 mg PO DAILY 90 3 July 28, 2022 3:13pm March 02, 2023 4:06pm Start: 02-08-2021 End: 03-10-2021 take 1 capsule by mouth once daily, then take 1 capsule by mouth every twenty-four hours Diltiazem Hcl (Cardizem Cd) 360 mg capsule,extended release 24hr Discontinued 360 mg PO DAILY 30 2 February 08, 2021 12:00am March 10, 2021 11:45am esomeprazole 20 mg delayed release oral capsule (11 sources) Proton Pump Inhibitor Start: 02-27-2018 End: 08-07-2018 take 1 capsule by mouth twice daily Esomeprazole Magnesium 20 MG capsule Discontinued 20 mg PO TWICE A DAY February 27, 2018 12:00am August 07, 2018 11:03am 1 ml fentaNYL 0.05 mg/ml injection (3 sources) Opioid Agonist Start: 07-03-2024 End: 07-03-2024 intravenous, As needed, Starting on Tue07/03/24 at 1029, Intraprocedure hydroCHLOROthiazide 25 mg oral tablet (11 sources) Thiazide Diuretic Start: 02-03-2018 End: 02-08-2021 take 1 tablet by mouth once daily in the morning Hydrochlorothiazide 25 mg tablet Discontinued 25 mg PO EVERY MORNING February 03, 2018 12:00am February 08, 2021 11:29am BP lisinopril 20 mg oral tablet (20 sources) Angiotensin Converting Enzyme Inhibitor Start: 01-20-2022 End: 03-02-2023 take 1 tablet by mouth once daily Lisinopril 20 mg tablet Discontinued 20 mg PO DAILY 90 3 December 28, 2022 8:25am March 02, 2023 4:06pm Start: 02-13-2021 End: 01-20-2022 take 1 tablet by mouth once daily Lisinopril 10 mg tablet Discontinued 10 mg PO DAILY 90 3 August 20, 2021 11:34am January 20, 2022 8:44am 2 ml midazolam 5 mg/ml injection (4 sources) Benzodiazepine Start: 07-03-2024 End: 07-03-2024 intravenous, Administer over 5 Minutes, As needed, Starting on Tue07/03/24 at 1035, Intraprocedure montelukast 10 mg oral tablet (1 source) Leukotriene Receptor Antagonist Start: 09-15-2023 End: 03-01-2024 take 1 tablet by mouth once daily in the evening Montelukast (Singulair) 10 mg tablet Discontinued 10 mg PO EVERY EVENING 20 0 September 15, 2023 1:00am March 01, 2024 3:08pm pantoprazole 40 mg delayed release oral tablet (1 source) Proton Pump Inhibitor Start: 03-12-2024 End: 06-05-2024 take 1 tablet by mouth once daily pantoprazole (ProtoNix) 40 mg EC tablet Indications: Epigastric pain , Nausea Take 1 tablet (40 mg) by mouth once daily. Do not crush, chew, or split. 30 tablet 03/12/2024 06/05/2024 Discontinued (Other) phentermine hydrochloride 37.5 mg oral tablet (3 sources) Sympathomimetic Amine Anorectic Start: 02-29-2024 End: 01-22-2025 take 1 tablet by mouth once daily 30 minutes after breakfast Phentermine 37.5 mg tablet Discontinued 37.5 mg PO DAILY March 01, 2024 12:00am January 22, 2025 8:39am must administer 30 minutes before or 1-2 hours after breakfast Thrive Vitamin (11 sources) Start: 02-27-2018 End: 08-07-2018 apply 1 dose topically once daily Thrive Vitamin Discontinued 1 PATCH TOPICAL DAILY February 27, 2018 12:08pm August 07, 2018 11:03am Start: 02-27-2018 End: 08-07-2018 Thrive Vitamin Discontinued 1 NMA TOPICAL DAILY February 27, 2018 12:00am August 07, 2018 11:03am Start: 02-27-2018 End: 08-07-2018 apply 1 dose topically once daily Thrive Vitamin Discontinued 1 PATCH TOPICAL DAILY February 26, 2018 11:00pm August 07, 2018 10:03am Start: 02-27-2018 End: 08-07-2018 apply 1 dose topically once daily Thrive Vitamin Discontinued 1 PATCH TOPICAL DAILY February 27, 2018 12:00am August 07, 2018 11:03am traMADol hydrochloride 50 mg oral tablet (4 sources) Opioid Agonist Start: 05-31-2023 End: 01-22-2025 take 1 tablet by mouth twice daily as needed Tramadol 50 mg tablet Discontinued 50 mg PO TWICE A DAY as needed May 31, 2023 1:00am January 22, 2025 8:39am Problems Active Problems Problem Classification Problem Date Documented Da te Episodic/Chronic Acute bronchitis (1 source) Acute bronchitis; Translations: [Acute bronchitis, unspecified] 01-10-2025 Episodic Administrative/social admission (9 sources) General problem AND/OR complaint; Translations: [Persons encountering health services in other specified circumstances] 03-10-2022 Episodic Cardiac dysrhythmias (20 sources) Persistent atrial fibrillation; Translations: [Other persistent atrial fibrillation] Onset: 02-06-2021 Chronic Cardiac dysrhythmias (11 sources) Bradycardia; Translations: [Bradycardia, unspecified] 10-13-2021 Episodic Disorders of teeth and jaw (6 sources) Infection of tooth; Translations: [Periapical abscess without sinus] 10-05-2022 Episodic Essential hypertension (19 sources) Essential hypertension; Translations: [Essential (primary) hypertension] Chronic Fluid and electrolyte disorders (11 sources) Hypokalemia; Translations: [Hypokalemia] 02-16-2021 Episodic Immunizations and screening for infectious disease (4 sources) Contact with and (suspected) exposure to other viral communicable diseases; Translations: [Contact with or suspected exposure to other viral communicable disease] 08-16-2022 Episodic Nausea and vomiting (4 sources) Nausea; Translations: [Nausea] Onset: 03-12-2024 03-12-2024 Episodic Nonspecific chest pain (18 sources) Chest discomfort; Translations: [Other chest pain] 02-16-2021 Episodic Open wounds of extremities (11 sources) Laceration of lower limb; Translations: [Laceration without foreign body, unspecified lower leg, initial encounter] 08-17-2018 Episodic Other female genital disorders (11 sources) Abnormal uterine bleeding; Translations: [Abnormal uterine and vaginal bleeding, unspecified] 10-01-2018 Chronic Comment on above: plan urogyn cs for S UI, plan tvh bs for AUB. ERAS Other lower respiratory disease (11 sources) Dyspnea on exertion; Translations: [Dyspnea, unspecified] 10-13-2021 Episodic Other lower respiratory disease (1 source) Dyspnea, unspecified; Translations: [Other respiratory abnormalities] Episodic Other nutritional; endocrine; and metabolic disorders (9 sources) Obesity; Translations: [Obesity, unspecified] 03-10-2022 Chronic Other nutritional; endocrine; and metabolic disorders (5 sources) Obesity, unspecified; Translations: [Obesity, unspecified] Chronic Other upper respiratory infections (8 sources) Acute maxillary sinusitis; Translations: [Acute maxillary sinusitis, unspecified] 08-16-2022 Episodic Otitis media and related conditions (1 source) Dysfunction of eustachian tube; Translations: [Unspecified Eustachian tube disorder, bilateral] 01-10-2025 Episodic Peripheral and visceral atherosclerosis (3 sources) Vascular insufficiency of intestine; Translations: [Vascular disorder of intestine, unspecified] Onset: 03-12-2024 03-12-2024 Chronic Residual codes; unclassified (10 sources) Hypersomnia; Translations: [Hypersomnia, unspecified] 01-20-2022 Chronic Residual codes; unclassified (2 sources) Hypersomnia, unspecified; Translations: [Hypersomnia, unspecified] Chronic Residual codes; unclassified (10 sources) Obstructive sleep apnea syndrome; Translations: [Obstructive sleep apnea (adult) (pediatric)] 03-10-2022 Chronic Residual codes; unclassified (5 sources) Obstructive sleep apnea (adult) (pediatric); Translations: [Obstructive sleep apnea (adult)(pediatric)] Chronic Substance-related disorders (11 sources) Nicotine dependence; Translations: [Nicotine dependence, unspecified, uncomplicated] 03-27-2021 Chronic Unclassified (1 source) Unknown / UNK(Unknown) Onset: 12-21-2017 Unclassified (1 source) Cough, unspecified; Translations: [Cough, unspecified] Onset: 05-31-2024 Viral infection (10 sources) Disease caused by 2019-nCoV; Translations: [COVID-19] Episodic Past or Other Problems Problem Classification Problem Date Documented Da te Episodic/Chronic Abdominal pain (13 sources) Pain in pelvis; Translations: [Pelvic and perineal pain] Onset: 03-12-2024 05-31-2023 Episodic Comment on above: [place] Other injuries and conditions due to external causes (1 source) Unspecified injury of right lower leg, initial encounter; Translations: [Unspecified injury of right lower leg, initial encounter] Onset: 12-16-2017 Episodic Unclassified (1 source) Encounter for screening mammogram for malignant neoplasm of breast; Translations: [Encounter for screening mammogram for malignant neoplasm of breast] Onset: 05-26-2017 Episodic Unclassified (2 sources) Onset: 03-12-2024 03-12-2024 Results Test Name Value Interpretation Reference Range Facility Cardiology Visit Reporton Cardiology Visit Report [facility] [address] [place] [address] OFFICE VISIT Date of Service: 01/22/25 MR#: [id number] Acct: [id number] Name: ANA MARIA FIGUEREDO Rep #: [id number] : 1970 Provider: KIRAN che Age/Sex: 54/F Location: [facility] [place] Status: Signed HPI HPI History of Present Illness Details: This is a 54-year-old who presents here today for a cardiovascular visit with a history of paroxysmal atrial fibrillation for which she was evaluated at [facility] by my colleague Dr. Lanier. It appears she underwent noninvasive evaluation which included a transthoracic echocardiogram and subsequently a pharmacologic stress nuclear imaging study. She states that she was treated medically. She was arranged for an outpatient synchronized biphasic DC cardioversion. However the day of her DC cardioversion she was found to be in sinus rhythm and thus her procedure was canceled and she was released home. She did have a Holter monitor performed in July 2021. She was in sinus rhythm. She had PACs and a brief atrial run lasting approximately 13 beats. She had occasional PVCs. She denies chest, arm, jaw, or neck discomfort. She states continual palpitations. She states intermittent bilateral lower extremity edema. She denies claudication. She states shortness of breath with activity such as jogging or walking fast for a long duration. She denies shortness of breath at rest, orthopnea, or PND. She denies chronic cough. She denies significant, sudden weight gain. She denies lightheadedness, dizziness, near-syncope, or syncope. She denies blood in urine, blood in stool, or epistaxis. He denies fever with chills. She denies myalgia. She denies fatigue. Her exercise level has remained stable 15-30 minutes twice a week. Intake Vital Signs 05/11/24 14:47 01/22/25 08:37 01/22/25 08:44 Height 5 ft 7 in 5 ft 7 in Weight: 299 lb BMI 46.8 BP 143/84 H 163/86 H Blood Pressure Location Lt brachial Lt brachial Position Sitting Sitting Respiration 18 Pulse 62 Pulse Source NIBP Intake Visit Reasons: OVERDUE FU PPM Lab Support Tech Required: No Is patient in pain?: No Allergies morphine Adverse Reaction (Verified 01/22/25 08:38) Nausea/Vom/Diarrhea Medications ???Medication ???Instructions ???Recorded ???Confirmed ???Type clonazepam 0.5 mg tablet 0.5 mg PO BID PRN Anxiety 02/03/18 01/22/25 History furosemide 20 mg tablet See Rx Instructions .Route 5 01/10/25 Rx .COMPLEX #90 tabs metoprolol tartrate 50 mg tablet See Rx Instructions .Route 5 01/10/25 Rx .COMPLEX #180 tabs potassium chloride 10 mEq See Rx Instructions .Route 5 01/22/25 Rx capsule,extended release .COMPLEX #90 caps apixaban 5 mg tablet (Eliquis) See Rx Instructions .Route 5 Rx .COMPLEX #180 tabs omeprazole 40 mg capsule,delayed 40 mg PO BID GERD 01/22/25 History release semaglutide (weight loss) 0.25 0.25 mg (0.5 mL) subcut QWEEK #2 m L 01/22/25 01/22/25 Rx mg/0.5 mL subcutaneous pen injector (Indira) Ejection fraction %: 60 Have you fallen in the past year?: No PFSH Medical History Pelvic pain Dysfunction of both eustachian tubes Acute bronchitis, unspecified Paroxysmal atrial fibrillation Dental infection Acute maxillary sinusitis, unspecified COVID-19 Nicotine dependence Essential hypertension Obesity Elevated blood sugar Anemia GERD (gastroesophageal reflux disease) Smoker Atrial fibrillation with RVR (02/06/21) Anxiety Ectopic Surgical History H/O wrist surgery History of tonsillectomy History of cholecystectomy History of total vaginal hysterectomy (TVH) (08/17/18) History of laparotomy H/O hemorrhoidectomy Family History Mother Asthma Breast cancer Cancer Diabetes Heart disease Hypertension Kidney disease Social History (Updated 01/22/25 @ 08:40 by Chloe Glaser) Smoking Status: Current every day smoker tobacco type: cigarettes alcohol intake: current alcohol intake frequency: holidays/special occasions only details: social substance use type: does not use caffeine: Yes Type: coffee Number of servings: 1 what type of physical activity do you participate in: walking seatbelt use: always do you feel safe at home: Yes ROS Const Const: Negative for fatigue or weakness Eyes Eyes: Negative for change in vision ENT ENT: Negative for dizziness or balance problems Cardio Chest Pain: No Palpitations: Yes (Occasionally) feels like its: other (fluttering) Edema: None Muscle aches with walking: None Resp Respiratory: Negative for SOB with activit (more content not included)... Normal [facility] EGD Study observation Vita holly 07-03-2024 Table formatting fro m the original result was not included. Impression Normal. Performed forceps biopsies in the incisura, prepyloric region, duodenal bulb and 2nd part of the duodenum to rule out celiac disease and H. pylori Findings All observed locations appeared normal. Regular Z-line 39 cm from the incisors; performed cold forceps biopsy Performed forceps biopsies in the incisura, prepyloric region, duodenal bulb and 2nd part of the duodenum to rule out celiac disease and H. pylori Recommendation Follow up with me in clinic Indication Nausea, Epigastric pain Staff Staff Role No Staff Documented Medications gbaubtmc-dwtysovjln-wbqzwxec ne (Cetacaine) spray 2 spray midazolam PF (Versed) injection 7.5 mg fentaNYL PF (Sublimaze) injection 100 mcg (Totals for administrations occurring from 1018 to 1038 on 07/03/24) Preprocedure A history and physical has been performed, and patient medication allergies have been reviewed. The patient's tolerance of previous anesthesia has been reviewed. The risks and benefits of the procedure and the sedation options and risks were discussed with the patient and patient's partner. All questions were answered and informed consent obtained. Details of the Procedure The patient underwent moderate sedation, which was administered by the procedural nurse. The patient's blood pressure, ECG, ETCO2, heart rate, level of consciousness, oxygen and respirations were monitored throughout the procedure. The scope was introduced through the mouth and advanced to the third part of the duodenum. Retroflexion was performed in the cardia. Prior to the procedure, the patient's H. Pylori status was unknown. The patient experienced no blood loss. The procedure was not difficult. The patient tolerated the procedure well. There were no apparent adverse events. Events Procedure Events Event Event Time ENDO SCOPE IN TIME 07/03/2024 10:32 AM ENDO SCOPE OUT TIME 07/03/2024 10:36 AM Specimens ID Type Source Tests Collected by Time 1 : BX DUODENUM Tissue DUODENUM SECOND PART BIOPSY SURGICAL PATHOLOGY EXAM Kaitlyn Muse MA 07/03/2024 1024 2 : BX DISTAL ESOPHAGUS Tissue ESOPHAGUS DISTAL BIOPSY SURGICAL PATHOLOGY EXAM Kaitlyn Muse MA 07/03/2024 1025 3 : BX ANTRUM Tissue STOMACH ANTRUM BIOPSY SURGICAL PATHOLOGY EXAM Kaitlyn Muse MA 07/03/2024 1025 Procedure Location [address] [address] Referring Provider Mickey Escobar DO Procedure Provider Mickey Escobar DO [facility] Work Phone: [facility] Work Phone: Radiology Study observation (narrative) [facility] Work Phone: Chest PA and Lateralon 05-11 Chest PA and Lateral [facility] Imaging Services [address] [place] [address] Chest PA and Lateral MR#: [id number] Acct: [id number] Name: ANA MARIA FIGUEREDO Rep #: [id number] : 1970 F 53 From: Raymundo Walter MD PCP: Dr. Rosita Canas DO Status: REG CLI Study: Chest PA and Lateral Date of Exam: 05/11/24 Exam# [id number] Ordering Dr: Adan Aquino PA :[id number] STUDY: X-RAY CHEST REASON FOR EXAM: Female, 53 years old. cough, fatigue TECHNIQUE: PA and lateral COMPARISON: February 08, 2021 FINDINGS: The lungs are clear and expanded. There is no demonstrated pleural abnormality. Normal size heart. Normal mediastinum and cas. Normal visualized pulmonary arteries. Normal visualized aortic arch and descending thoracic aorta. Dorsal spine demonstrates degenerative change. Normal visualized ribs, clavicles, and shoulders. There is no demonstrated abnormality of the visualized soft tissue structures of the upper abdomen. No significant change since prior study RAD/Chest PA and Lateral IMPRESSION: No acute cardiopulmonary pathology Electronically Signed: Raymundo Walter MD at 16:13 EDT Reading Location ID and State: [facility] / [place] Tel , Service support , CC: Dr. Rosita Canas DO; TEVIN Slade Skoog Machine Operator: Signed Normal [facility] Urgent Care Visit Reporton 1 Urgent Care Visit Report [facility] [address], [address] [place] [address] OFFICE VISIT Date of Service: 05/11/24 MR#: [id number] Acct: [id number] Name: ANA MARIA FIGUEREOD Rep #: [id number] : 1970 Provider: TEVIN Slade Age/Sex: 53/F Location[facility] Status: Signed Intake Vital Signs 03/01/24 13:42 05/11/24 14:47 05/11/24 15:11 Height 5 ft 7 in 5 ft 7 in BP 122/82 H Blood Pressure Location Lt brachial Position Sitting Respiration 14 Pulse 97 Pulse Source Monitor Temp 98.3 F Temp Source Temporal Pulse Oximetry (%) 98 Oxygen Delivery Method room air Intake Visit Reasons: COUGH, CONGESTION Allergies morphine Adverse Reaction (Verified 05/11/24 15:12) Nausea/Vom/Diarrhea PFSH Medical History (Updated 05/11/24 @ 16:05 by Adan ABARCA, PA) Acute bronchitis, unspecified Paroxysmal atrial fibrillation Dental infection Acute maxillary sinusitis, unspecified COVID-19 Nicotine dependence Essential hypertension Obesity Elevated blood sugar Anemia GERD (gastroesophageal reflux disease) Smoker Atrial fibrillation with RVR (02/06/21) Anxiety Ectopic Surgical History (Reviewed 03/01/24 @ 15:18 by Berta Shi CNC MAINTENANCE TECHNICIAN, CNC MAINTENANCE TECHNICIAN-C) H/O wrist surgery History of tonsillectomy History of cholecystectomy History of total vaginal hysterectomy (TVH) (08/17/18) History of laparotomy H/O hemorrhoidectomy Family History (Reviewed 03/01/24 @ 15:18 by Berta Shi CNC MAINTENANCE TECHNICIAN, CNC MAINTENANCE TECHNICIAN-C) Mother Asthma Breast cancer Cancer Diabetes Heart disease Hypertension Kidney disease Social History (Reviewed 03/01/24 @ 15:18 by Berta Shi CNC MAINTENANCE TECHNICIAN, CNC MAINTENANCE TECHNICIAN-C) Smoking Status: Current every day smoker tobacco type: cigarettes alcohol intake: current alcohol intake frequency: holidays/special occasions only details: social substance use type: does not use caffeine: Yes what type of physical activity do you participate in: walking seatbelt use: always do you feel safe at home: Yes Female Reproductive History Menstrual Ab spontaneous: 4 Ectopics: 3 HPI HPI Details: ANA MARIA FIGUEREDO, is a 53 F who presents to the office today for initial evaluation approximate 1 week history of progressively worsening cough and fatigue. Patient is returning home 9 days ago from [place] on vacation and shortly after return developing progressively worsening cough and fatigue and moist nonproductive cough. No complaints of fever though occasional chills. No complaints of sweats or rash or sore throat/auscultation or smell or chest pressure/shortness of breath/dyspnea on exertion. Non-smoker. Several close contacts with similar complaints. No magt-gnf-pwurbvx products taken to assist. No other associated symptoms and no other alleviating/aggravating factors. ROS Const Constitutional: No other (As above) Exam Const General: cooperative, healthy appearing and no acute distress Orientation: alert and awake [facility] Head: normal to inspection Ears: hearing grossly normal bilaterally, external ears normal, TM's normal bilaterally and EAC's normal Nose: external nose normal, nares normal, septum normal and no nasal discharge Face and sinus: normal facial exam, sinuses nontender and face symmetric Mouth: oral mucosae normal, lip normal, tongue normal and oropharynx normal Throat: posterior oropharynx normal, tonsils normal, uvula midline and no postnasal drainage Eyes General: appearance normal, both eyes and all related structures Neck Neck: normal visual inspection, no lymphadenopathy, no meningeal signs and supple Neck mass: No Thyroid: thyroid normal Lymphatic: no lymphadenopathy noted Chest Chest palpation inspection: normal inspection of the chest Resp Effort Inspection: normal respiratory effort and able to speak in complete sentences Auscultation: Left: Rhonchi and Right: Rhonchi Cardio Palpation: normal PMI Rate: regular rate Rhythm: regular rhythm Heart Sounds: S1 normal, S2 normal, no gallops, no murmurs and no rubs Pulses: radial pulses present Skin General: no rashes or lesions noted Neuro General: patient alert, patient awake and patient oriented x3 Cognition: normal cognition Speech: speech normal Extrem General: normal to inspection Psych Appearance: grossly normal Mental Status: mental status grossly normal Mood: congruent mood Affect: normal affect Speech and Movement: speech and movement normal Attitude: cooperative Coding Level of Care Code Off vis,est,level 4 Diagnoses Acute bronchitis, unspecified J20.9 Assessment and Plan Assessment and Plan (1) Acute bronchitis, unspecified: Status: Acute Plan: PA and lateral chest x-ray taken today reviewed with patient in office today, with radiologist interpretation pending in of (more content not included)... Normal [facility] Gastric Emptying Studyon Gastric Emptying Study [facility] Imaging Services [address] [place] [address] Gastric Emptying Study MR#: [id number] Acct: [id number] Name: ANA MARIA FIGUEREDO Rep #: [id number] : 1970 F 53 From: Faustino Hayes PCP: Dr. Rosita Canas DO Status: REG CLI Study: Gastric Emptying Study Date of Exam: 04/09/24 Exam# [id number] Ordering Dr: Rosita Canas DO :[id number] CLINICAL: 53-year-old female with history of abdominal pain. SEMI-SOLID PHASE 99m Tc SULFUR COLLOID GASTRIC EMPTYING STUDY COMPARISON: None available FINDINGS: The patient was administered 1.2 mCi of 99m Tc sulfur colloid mixed with oatmeal and consumed per os. Image acquisitions in the anterior-posterior projections were obtained for 60 minutes. There is prompt visualization of the stomach. There is no gastroesophageal reflux identified. The T ? raw data emptying was calculated to be 22.32 minutes, (Normal: 12-56 minutes). NM/Gastric Emptying Study IMPRESSION: 1. NORMAL 99m Tc sulfur colloid semi-solid phase (oatmeal) gastric emptying imaging examination. A. There is normal and preserved semi-solid phase gastric emptying compared to normal controls. (Veronica et al, J Nucl Med Tech 38: 186, 2010). Electronically Signed: Faustino Collier DO at 22:22 EDT Reading Location ID and State: [address] [place] [address] Tel , Service support , CC: Dr. Rosita Canas DO Skoog Machine Operator: Signed Normal [facility] Renal Artery Duplex Ultrasou ndon 04-04-2024 Renal Artery Duplex Ultrasound [facility] [address] [place] [address] Renal Artery Duplex Ultrasound 04/04/24 0855 MR#: [id number] Acct: [id number] Name: ANA MARIA FIGUEREDO Rep #: [id number] : 1970 53 From: Amando Tellez MD Attending Dr: Dr. Mickey Escobar, Status: REG C LI Ordering Dr: Mickey Escobar DO Date: 04/04/24 Location: [facility] Sex: F C Admitted: Reason For Study: Mesentric Artery Ischemia Aorta Mid Abdominal Aorta 1.85 x 1.90 cm . Mid Abdominal Aorta PSV is 100.8 cm/sec . Celiac Artery - 242.6/80.6 cm/s Hepatic A Prox - 125.9/47.4 cm/s Splenic A Prox -204.4/71.3 cm/s SMA HUGO - 210.8/52.4 cm/s SMA Prox - 163.4/33.8 cm/s SMA Prox W/ Insp - 144.8/30.4 cm/s SMA Mid - 173.7/44.0 cm/s SMA Dist - 163.4/37.2 cm/s REGI Prox - 245.3/50.8 cm/s. Procedures Mesenteric Artery Duplex w/ B-Mode, Color and Pulsed Wave Doppler. Study was technically difficult. VL/Renal Artery Duplex Ultrasound Interpretation Summary Celiac artery patent with normal velocities and no evidence of stenosis. Superior mesenteric artery patent with normal velocities and no evidence of stenosis. Inferior mesenteric artery patent Ordering Physician: Mickey Escobar Referring Physician: Mickey Escobar Performed By: Max Vincent, Usman 04/05/24 1252 Date Amando Tellez MD CC: Dr. Mickey Escobar DO; Dr. Rosita Canas DO Date Dictated: 04/04/2455 Date Transcribed: 04/05/241251 Skoog Machine Operator: Signed Normal [facility] Pulmonary Visit Reporton Pulmonary Visit Report [facility] [place] [address] [place] [address] OFFICE VISIT Date of Service: 03/01/24 MR#: [id number] Acct: [id number] Name: ANA MARIA FIGUEREDO Rep #: [id number] : 1970 Provider: KIRAN Shi Age/Sex: 53/F Location[place] [facility] Status: Signed Assessment and Plan Assessment and Plan (1) RAF (obstructive sleep apnea): Status: Chronic (2) Obesity: Status: Chronic Qualifiers: Body mass index: BMI 40.0-44.9 Obesity classification: adult class 3 (BMI >= 40) Obesity type: due to excess calories Serious obesity comorbidity presence: with serious comorbidity Qualified Code(s): E66.01 - Morbid (severe) obesity due to excess calories; Z68.41 - Body mass index [BMI] 40.0-44.9, adult Plan Stable, she is using and benefiting from Pap therapy. No indication for titration study at this time. Continue to encourage weight loss. Contact the office for any new or worsening symptoms in the meantime. Follow-up in 1 year. Plan Details Follow Up: 1 Year (csm) HPI 1 Y FU Chief Complaint: Routine follow-up HPI Comments Details: This patient presents to the office today for follow-up of her obstructive sleep apnea. She is ambulatory and currently on room air. She has not recently been seen in the ED or urgent care for respiratory illness. She has not required any antibiotics or prednisone for any breathing problems. She continues to smoke 1/4 pack of cigarettes per day. Started smoking 25 years ago. She is not eligible for LDCT. She denies any difficulty with shortness of breath whatsoever. She denies any cough, sputum production or hemoptysis. She has not had any wheezing, chest tightness, chest pain or palpitations. She also denies any fever, chills or body aches. She wakes up feeling rested and refreshed with the use of her AutoPap. She is not having difficulty with nocturia. She denies morning headaches. She is not having dry mouth. Compliance report for the past 30 days shows 100% compliance and average use of 6 hours and 25 minutes per night. Current setting is AutoPap 5-15 cmH2O pressure typically being utilized at 6.2 to 9.7 cm of water. Residual AHI of 1.2 events per hour. Leaks do not appear to be problematic. Intake Vital Signs 02/07/23 07:59 05/31/23 11:24 03/01/24 13:42 Height 5 ft 7 in 5 ft 7 in 5 ft 7 in Weight: 285 lb BMI 44.6 BP 142/89 H Blood Pressure Location Lt brachial Position Sitting Respiration 20 H Pulse 71 Pulse Source Monitor Temp 97.4 F L Temperature Source Temporal Artery Pulse Oximetry (%) 98 Intake Visit Reasons: 1 Y FU Chief Complaint: Sinus congestion and ear pressure. Lab Support Tech Required: No DME Vendor: [employer] - [employer] Accompanied by: Self Is patient in pain?: No Allergies morphine Adverse Reaction (Verified 03/01/24 15:07) Nausea/Vom/Diarrhea Medications ???Medication ???Instructions ???Recorded ???Confirmed ???Type clonazepam 0.5 mg tablet 0.5 mg PO BID PRN Anxiety 02/03/18 03/01/24 History omeprazole 40 mg capsule,delayed 40 mg PO DAILY GERD 08/10/18 03/01/24 History release tramadol 50 mg tablet 50 mg PO BID PRN 05/31/23 03/01/24 History furosemide 20 mg tablet See Rx Instructions .Route 08/01/23 03/01/24 Rx .COMPLEX #90 tabs metoprolol tartrate 50 mg tablet See Rx Instructions .Route 08/01/23 03/01/24 Rx .COMPLEX #180 tabs potassium chloride 10 mEq See Rx Instructions .Route 08/01/23 03/01/24 Rx capsule,extended release .COMPLEX #90 caps apixaban 5 mg tablet (Eliquis) See Rx Instructions .Route 10/03/23 03/01/24 Rx .COMPLEX #60 tabs dicyclomine 10 mg capsule 10 mg PO BID 03/01/24 03/01/24 History phentermine 37.5 mg tablet 37.5 mg PO DAILY 03/01/24 03/01/24 History PFSH Medical History (Reviewed 03/01/24 @ 15:18 by Berta Shi CNC MAINTENANCE TECHNICIAN, CNC MAINTENANCE TECHNICIAN-C) Paroxysmal atrial fibrillation Dental infection Acute maxillary sinusitis, unspecified COVID-19 Nicotine dependence Essential hypertension Obesity Elevated blood sugar Anemia GERD (gastroesophageal reflux disease) Smoker Atrial fibrillation with RVR (02/06/21) Anxiety Ectopic Surgical History (Reviewed 03/01/24 @ 15:18 by Berta Shi CNC MAINTENANCE TECHNICIAN, CNC MAINTENANCE TECHNICIAN-C) H/O wrist surgery History of tonsillectomy History of cholecystectomy History of total vaginal hysterectomy (TVH) (08/17/18) History of laparotomy H/O hemorrhoidectomy Family History (Reviewed 03/01/24 @ 15:18 by Berta Shi CNC MAINTENANCE TECHNICIAN, CNC MAINTENANCE TECHNICIAN-C) Mother Asthma Breast cancer Cancer Diabetes Heart disease Hypertension Kidney disease Social History (Reviewed 03/01/24 @ 15:18 by Berta Shi CNC MAINTENANCE TECHNICIAN, CNC MAINTENANCE TECHNICIAN-C) Smoking Status: Current every day smoker tobacco type: cigarettes alcohol intake: current alcohol intake frequency: holidays/speci (more content not included)... Normal [facility] CBC W/Diff, Automatedon Absolute Lymph 2.81 X10 3/uL Normal 0.83-4.51 [facility] Comment on above: Performed By: #### L 500.4050, L500.4100, L100.0100 #### [facility] [address] [place], [address] Absolute Neut 3.7 X10 3/uL Normal 2.0-7.7 [facility] Comment on above: Performed By: #### L 500.4050, L500.4100, L100.0100 #### [facility] [address] [place], [address] Basophils/100 WBC (Bld) 0.8 % Normal 0-1 [facility] Comment on above: Performed By: #### L 500.4050, L500.4100, L100.0100 #### [facility] [address] [place], [address] Eosinophils/100 WBC (Bld) 4.7 % Normal 0-5 [facility] Comment on above: Performed By: #### L 500.4050, L500.4100, L100.0100 #### [facility] [address] [place], [address] Erythrocyte distribution width (RBC) [Ratio] 14.7 % High 11.6-14.6 [facility] Comment on above: Performed By: #### L 500.4050, L500.4100, L100.0100 #### [facility] [address] [place], [address] Hematocrit (Bld) [Volume fraction] 39.0 % Normal 37-47 [facility] Comment on above: Performed By: #### L 500.4050, L500.4100, L100.0100 #### [facility] [address] [place], [address] Hemoglobin (Bld) [Mass/Vol] 12.5 g/dL Normal 12.0-15.0 [facility] Comment on above: Performed By: #### L 500.4050, L500.4100, L100.0100 #### [facility] [address] [place], [address] IG% 0.300 Normal 0.0-0.9 [facility] Comment on above: Result Comment: IG% - Immature Granulocytes (promyelocytes, myelocytes and metamyelocytes) > 1% indicates that a LEFT SHIFT is Present. Performed By: #### L 500.4050, L500.4100, L100.0100 #### [facility] [address] [place], [address] Lymphocytes/100 WBC (Bld) 37.0 % Normal 19-41 [facility] Comment on above: Performed By: #### L 500.4050, L500.4100, L100.0100 #### [facility] [address] [place], [address] MCH (RBC) [Entitic mass] 30.3 pg Normal 27.0-32.0 [facility] Comment on above: Performed By: #### L 500.4050, L500.4100, L100.0100 #### [facility] [address] [place], [address] MCHC (RBC) [Mass/Vol] 32.1 g/dL Normal 32-36 [facility] Comment on above: Performed By: #### L 500.4050, L500.4100, L100.0100 #### [facility] [address] [place], [address] MCV (RBC) [Entitic vol] 94.7 fL Normal 81-99 [facility] Comment on above: Performed By: #### L 500.4050, L500.4100, L100.0100 #### [facility] [address] [place], [address] Monocytes/100 WBC (Bld) 8.0 % Normal 0-10 [facility] Comment on above: Performed By: #### L 500.4050, L500.4100, L100.0100 #### [facility] [address] [place], [address] Neutrophils/100 WBC (Bld) 49.2 % Normal 47-70 [facility] Comment on above: Performed By: #### L 500.4050, L500.4100, L100.0100 #### [facility] [address] [place], [address] Nucleated RBC (Bld) [#/Vol] 0 10*3/uL Normal 0-5 [facility] Comment on above: Performed By: #### L 500.4050, L500.4100, L100.0100 #### [facility] [address] [place], [address] Platelet mean volume (Bld) [Entitic vol] 9.9 fL Normal 6.2-12.0 [facility] Comment on above: Performed By: #### L 500.4050, L500.4100, L100.0100 #### [facility] [address] [place], [address] Platelets (Bld) [#/Vol] 299 10*3/uL Normal 150-450 [facility] Comment on above: Performed By: #### L 500.4050, L500.4100, L100.0100 #### [facility] [address] [place], [address] RBC (Bld) [#/Vol] 4.12 10*6/uL Low 4.2-5.4 [facility] Comment on above: Performed By: #### L 500.4050, L500.4100, L100.0100 #### [facility] [address] [place], [address] RDW SD 51.1 fl High 35.1-43.9 [facility] Comment on above: Performed By: #### L 500.4050, L500.4100, L100.0100 #### [facility] [address] [place], [address] WBC (Bld) [#/Vol] 7.6 10*3/uL Normal 4.4-11.0 [facility] Comment on above: Performed By: #### L 500.4050, L500.4100, L100.0100 #### [facility] [address] [place], [address] Comprehensive Metabolic Prof [facility] 02-28-2024 Albumin [Mass/Vol] 3.1 g/dL Low 3.2-5.0 [facility] Comment on above: Performed By: #### L 500.4050, L500.4100, L100.0100 #### [facility] [address] [place], [address] Albumin/Globulin [Mass ratio] 0.9 {ratio} Normal 0.9-2.4 [facility] Comment on above: Performed By: #### L 500.4050, L500.4100, L100.0100 #### [facility] [address] [place], [address] ALK P 94 U/L Normal 45-117 [facility] Comment on above: Performed By: #### L 500.4050, L500.4100, L100.0100 #### [facility] [address] [place], [address] ALT [Catalytic activity/Vol] 36 U/L Normal 13-56 [facility] Comment on above: Performed By: #### L 500.4050, L500.4100, L100.0100 #### [facility] [address] [place], [address] AST [Catalytic activity/Vol] 15 U/L Normal 15-37 [facility] Comment on above: Performed By: #### L 500.4050, L500.4100, L100.0100 #### [facility] [address] [place], [address] Bilirubin [Mass/Vol] 0.20 mg/dL Normal 0.20-1.00 [facility] Comment on above: Result Comment: For patients on eltrombopag therapy, use of Dimension [place] TBIL is not recommended. Performed By: #### L [id number], L500.4100, L100.0100 #### [facility] [address] [place], [address] BUN/CRE 18.8 RATIO Normal 10-20 [facility] Comment on above: Performed By: #### L [id number], [id number], L100.0100 #### [facility] [address] [place], [address] CA,Total 8.8 mg/dL Normal 8.5-10.1 [facility] Comment on above: Performed By: #### L [id number], [id number], L100.0100 #### [facility] [address] [place], [address] Chloride [Moles/Vol] 114 mmol/L High 98-107 [facility] Comment on above: Performed By: #### L [id number], [id number], [id number] #### [facility] [address] [place], [address] CO2 [Moles/Vol] 27.0 mmol/L Normal 21.0-32.0 [facility] Comment on above: Performed By: #### L [id number], [id number], L100.0100 #### [facility] [address] [place], [address] Creatinine [Mass/Vol] 1.01 mg/dL Normal 0.55-1.02 [facility] Comment on above: Result Comment: The validity of the calculated GFR GFRAA in patients over 70 years has not been determined. Clinical correlation is essential. Performed By: #### L [id number], [id number], L100.0100 #### [facility] [address] [place], [address] EST GFR - AA 74 mL/min Normal >60 [facility] Comment on above: Result Comment: Afri can [place]eg[place] GFR Calc Performed By: #### L [id number], [id number], L100.0100 #### [facility] [address] [place], [address] GAP 4 Low 5-15 [facility] Comment on above: Performed By: #### L [id number], [id number], [id number] #### [facility] [address] [place], [address] GFR/1.73 sq M.predicted among non-blacks MDRD (S/P/Bld) [Vol rate/Area] 61 mL/min/{1.73_m2} Normal >60 [facility] Comment on above: Result Comment: Non- GFR Calc Performed By: #### L [id number], [id number], L100.0100 #### [facility] [address] [place], [address] Globulin (S) [Mass/Vol] 3.4 g/dL Normal 2.2-4.2 [facility] Comment on above: Performed By: #### L [id number], [id number], L100.0100 #### [facility] [address] [place], [address] Glucose [Mass/Vol] 113 mg/dL High 74-106 [facility] Comment on above: Result Comment: Fast ing Glucose result from 100 to 125 mg/dL suggests IMPAIRED HOMEOSTASIS per A.D.A. criteria. Performed By: #### L [id number], [id number], L100.0100 #### [facility] [address] [place], [address] Potassium [Moles/Vol] 4.2 mmol/L Normal 3.5-5.1 [facility] Comment on above: Performed By: #### L [id number], [id number], L100.0100 #### [facility] [address] [place], [address] Sodium [Moles/Vol] 145 mmol/L Normal 136-145 [facility] Comment on above: Performed By: #### L [id number], [id number], L100.0100 #### [facility] [address] [place], [address] T PROT 6.5 g/dL Normal 6.4-8.2 [facility] Comment on above: Performed By: #### L [id number], [id number], L100.0100 #### [facility] [address] [place], [address] Urea nitrogen [Mass/Vol] 19 mg/dL High 7-18 [facility] Comment on above: Performed By: #### L [id number], [id number], [id number] #### [facility] [address] [place], [address] Lipid Profileon 02-28-2024 Cholesterol [Mass/Vol] 195 mg/dL Normal 200 [facility] Comment on above: Result Comment: <200 mg/dL Desirable 200-240 mg/dL Borderline >240 mg/dL High Risk Performed By: #### L [id number], [id number], [id number] #### [facility] [address] [place], [address] Cholesterol in HDL [Mass/Vol] 60 mg/dL Normal [facility] Comment on above: Result Comment: The drugs N-Acetylcysteine and Metamizole may falsely depress this assay. Reference Range HDL <40 mg/dL Low HDL Cholesterol HDL >or= 60 mg/dL High HDL Cholesterol Performed By: #### L [id number], [id number], L100.0100 #### [facility] [address] [place], [address] Cholesterol in LDL [Mass/Vol] 107 mg/dL Normal 0-130 [facility] Comment on above: Performed By: #### L [id number], [id number], L100.0100 #### [facility] [address] [place], [address] Cholesterol in VLDL [Mass/Vol] 28 mg/dL Normal 5-40 [facility] Comment on above: Performed By: #### L [id number], [id number], L100.0100 #### [facility] [address] [place], [address] Triglyceride [Mass/Vol] 138 mg/dL Normal [facility] Comment on above: Result Comment: The drugs N-Acetylcysteine and Metamizole may falsely depress this assay. Serum Triglycerides Reference Interval Normal <150 mg/dL Borderline high 150 - 199 mg/dL High 200 - 499 mg/dL Very High > or = 500 mg/dL Performed By: #### L [id number], [id number], L100.0100 #### [facility] [address] [place], [address] Absolute lymphocyte countOrd ered By: Stacy Mancera on 05-30-2023 Lymphocytes Auto (Unsp spec) [#/Vol] 2.32 10*3/uL 0.83-4.51 [facility] Basophil percentageOrdered B y: Stacy Mancera on 05-30-2023 Basophils/100 WBC (Bld) 0.5 % 0-1 [facility] Bilirubin [Mass/Vol] 0.40 mg/dL 0.20-1.00 [facility] Comment on above: For patients on eltr ombopag therapy, use of Dimension Mead TBIL is not recommended. Chloride [Moles/Vol] 106 mmol/L 98-107 [facility] Eosinophils/100 WBC (Bld) 3.6 % 0-5 [facility] Glucose [Mass/Vol] 96 mg/dL 74-106 [facility] Neutrophils (Bld) [#/Vol] 4.8 10*3/uL 2.0-7.7 [facility] Neutrophils/100 WBC (Bld) 59.3 % 47-70 [facility] Potassium [Moles/Vol] 3.9 mmol/L 3.5-5.1 [facility] Protein [Mass/Vol] 7.0 g/dL 6.4-8.2 [facility] Sodium [Moles/Vol] 139 mmol/L 136-145 [facility] WBC (Bld) [#/Vol] 8.1 10*3/uL 4.4-11.0 [facility] Blood erythrocytes count (nu mber/volume)Ordered By: Stacy Mancera on 05-30-2023 RBC (Bld) [#/Vol] 4.27 10*6/uL 4.2-5.4 [facility] Blood hemoglobin measurement (mass/volume)Ordered By: Stacy Mancera on 05-30-2023 Hemoglobin (Bld) [Mass/Vol] 12.8 g/dL 12.0-15.0 [facility] Blood lymphocytes/100 leukoc ytesOrdered By: Stacy Mancera on 05-30-2023 Lymphocytes/100 WBC (Bld) 28.6 % 19-41 [facility] Blood monocytes/100 leukocyt esOrdered By: Stacynasra Mancera on 05-30-2023 Monocytes/100 WBC (Bld) 7.6 % 0-10 [facility] Blood platelet mean volumeOr dered By: Stacy Mancera on 05-30-2023 Platelet mean volume (Bld) [Entitic vol] 10.2 fL 6.2-12.0 [facility] Determination of erythrocyte mean corpuscular volume (MCV)Ordered By: Stacynasra Mancera on 05-30-2023 MCV (RBC) [Entitic vol] 94.8 fL 81-99 [facility] Hematocrit Auto (Bld) [Volum e fraction]Ordered By: Fulton Calderon on 05-30-2023 Hematocrit (Bld) [Volume fraction] 40.5 % 37-47 [facility] - Chemistry and C hemistry - challengeOrdered By: Fulton Calderon on 05-30-2023 ALP [Catalytic activity/Vol] 99 U/L 45-117 [facility] ALT [Catalytic activity/Vol] 26 U/L 13-56 [facility] CO2 [Moles/Vol] 26.0 mmol/L 21.0-32.0 [facility] Globulin (S) [Mass/Vol] 3.7 g/dL 2.2-4.2 [facility] Urea nitrogen/Creatinine [Mass ratio] 20.3 mg/mg 10-20 [facility] - Hematology and Cell countsOrdered By: Fulton Calderon on 05-30-2023 Erythrocyte distribution width (RBC) [Entitic vol] 47.8 fL 35.1-43.9 [facility] Erythrocyte distribution width (RBC) [Ratio] 13.5 % 11.6-14.6 [facility] Immature granulocytes/100 WBC (Bld) 0.400 % 0.0-0.9 [facility] Comment on above: IG% - Immature Granu locytes (promyelocytes, myelocytes and metamyelocytes) > 1% indicates that a LEFT SHIFT is Present. MCH (RBC) [Entitic mass] 30.0 pg 27.0-32.0 [facility] Nucleated RBC/100 WBC (Bld) [Ratio] 0 % 0-5 [facility] MCHC Auto (RBC) [Mass/Vol]Or dered By: Stacy Mancera on 05-30-2023 MCHC (RBC) [Mass/Vol] 31.6 g/dL 32-36 [facility] No Panel InformationOrdered By: Stacy Mancera on 05-30-2023 Estimated GFR (MDRD) Amer 92 mL/min >60 [facility] Comment on above: GFR Calc Estimated GFR (MDRD) Non-Af Amer 76 mL/min >60 [facility] Comment on above: Non- GFR Calc Platelets bldOrdered By: Mary Mancera on 05-30-2023 Platelets (Bld) [#/Vol] 307 10*3/uL 150-450 [facility] Serum or plasma albumin mickie urement (mass/volume)Ordered By: Stacy Mancera on 05-30-2023 Albumin [Mass/Vol] 3.3 g/dL 3.2-5.0 [facility] Serum or plasma albumin/glob ulin mass ratioOrdered By: Stacy Mancera on 05-30-2023 Albumin/Globulin [Mass ratio] 0.9 {ratio} 0.9-2.4 [facility] Serum or plasma calcium mickie urement (mass/volume)Ordered By: Stacy Mancera on 05-30-2023 Calcium [Mass/Vol] 9.0 mg/dL 8.5-10.1 [facility] Serum or plasma creatinine m easurement (mass/volume)Ordered By: Stacy Mancera on 05-30-2023 Creatinine [Mass/Vol] 0.84 mg/dL 0.55-1.02 [facility] Comment on above: The validity of the calculated GFR & GFRAA in patients over 70 years has not been determined. Clinical correlation is essential. Serum or plasma urea nitroge n measurement (mass/volume)Ordered By: Stacy Mancera on 05-30-2023 Urea nitrogen [Mass/Vol] 17 mg/dL 7-18 [facility] Thin prep Papanicolaou smear with manual screeningOrdered By: Stacy Mancera on 05-30-2023 Thin prep Papanicolaou smear with manual screening 11 U/L 15-37 [facility] Thin prep Papanicolaou smear with manual screening 7 5-15 [facility] Basophil percentageOrdered B y: Rosita Canas on 02-24-2023 Basophil percentage 0-5 SEEN /hpf 0-5 [facility] Basophil percentage Not Reportable [facility] Bilirubin Test strip Ql (U)O rdered By: Rosita Canas on 02-24-2023 Bilirubin Ql (U) Negative Negative [facility] Culture, urineOrdered By: Leilani Canas on 02-24-2023 Bacteria identified Cx Nom (U) Presumptive E. coli [facility] Bacteria identified Cx Nom (U) Presumptive E. coli [facility] Erythrocyte sedimentation ra teOrdered By: Rosita Canas on 02-24-2023 ESR (Bld) [Velocity] 10 mm/h 0-30 [facility] Ketones Test strip Ql (U)Ord ered By: Rosita Canas on 02-24-2023 Ketones Ql (U) Negative Negative [facility] Mucus LM Ql (Urine sed)Order ed By: Rosita Canas on 02-24-2023 Mucus Ql (Urine sed) 0 SEEN /hpf [facility] Nitrite Test strip Ql (U)Ord ered By: Rosita Canas on 02-24-2023 Nitrite Ql (U) Negative Negative [facility] No Panel InformationOrdered By: Rosita Canas on 02-24-2023 Anti-Nuclear Antibody Screen Negative Negative [facility] Comment on above: Performed at: [address] [id number] Director: Jose Valdez PhD, Phone: [phone] [employer] B Antibody Not Reportable [facility] BILLET SHEARER Antibody Not Reportable [facility] Protein Test strip Ql (U)Ord ered By: Rosita Canas on 02-24-2023 Protein Ql (U) Negative Negative [facility] Serum DNA double strand anti body assay (units/volume)Ordered By: Rosita Canas on 02-24-2023 DNA double strand Ab Qn (S) Not Reportable [facility] Serum Mandie-1 antibody assay (u nits/volume)Ordered By: Rosita Canas on 02-24-2023 Mandie-1 extractable nuclear Ab Qn (S) Not Reportable [facility] Serum Scl-70 extractable nuc lear antibody assay (units/volume)Ordered By: Rosita Canas on 02-24-2023 SCL-70 extractable nuclear Ab Qn (S) Not Reportable [facility] Serum Tafoya extractable nucl ear antibody detectionOrdered By: Rosita Canas on 02-24-2023 Tafoya extractable nuclear Ab Ql (S) Not Reportable [facility] Serum cyclic citrullinated p eptide IgG antibody assay (units/volume)Ordered By: Rosita Canas on 02-24-2023 Cyclic citrullinated peptide IgG Qn 6 units 0-19 [facility] Comment on above: Negative <20 Weak po sitive 20 - 39 Moderate positive 40 - 59 Strong positive >59Performed at: [facility] [employer] [id number] Director: Joes Valdez PhD, Phone: [phone] Serum or plasma C reactive p rotein measurement (mass/volume)Ordered By: Rosita Canas on 02-24-2023 CRP [Mass/Vol] 11.70 mg/L 0.0-3.0 [facility] Comment on above: C-Reactive Protein ( CRP) provides useful information for thediagnosis, therapy and monitoring of inflammatory processesand associated diseases. For the evaluation of Relative Riskfor Cardiovascular Disease, a High Sensitivity CRP (HSCRP)should be ordered. Serum rheumatoid factor dete ctionOrdered By: Rosita Canas on 02-24-2023 Rheumatoid factor Ql (S) < 10.0 IU/mL <15 [facility] Squamous epithelial cells de tection in urine sediment by light microscopyOrdered By: Rosita Canas on 02-24-2023 Epithelial cells.squamous LM Ql (Urine sed) 0-5 SEEN /hpf 5-10 [facility] Urine blood detectionOrdered By: Rosita Canas on 02-24-2023 RBC Ql (U) Negative Negative [facility] RBC Ql (U) 0 SEEN /hpf 0-5 [facility] Urine clarityOrdered By: Shalonda Canas on 02-24-2023 Clarity (U) Clear Clear [facility] Urine color determinationOrd ered By: Rosita Canas on 02-24-2023 Color (U) Yellow Yellow [facility] Urine glucose detectionOrder ed By: Rosita Canas on 02-24-2023 Glucose Ql (U) Normal mg/dl Normal [facility] Urine leukocyte esterase det ection by dipstickOrdered By: Rosita Canas on 02-24-2023 Leukocyte esterase Test strip Ql (U) 25 /ul Negative [facility] Urine pHOrdered By: Rosita burger on 02-24-2023 pH (U) 5.0 [pH] 5.0 - 8.0 [facility] Urine sediment bacteria coun t by microscopy (number/high power field)Ordered By: Rosita Canas on 02-24-2023 Bacteria LM.HPF (Urine sed) [#/Area] 0 /[HPF] None Seen [facility] Urine specific gravity measu rementOrdered By: Rosita Canas on 02-24-2023 Specific gravity (U) [Rel density] 1.010 1.002-1.03 0 [facility] Urobilinogen Auto test strip Ql (U)Ordered By: Rosita Canas on 02-24-2023 Urobilinogen Ql (U) Normal mg/dl Normal [facility] Whole blood hemoglobin A1c/t otal hemoglobin ratio (mass fraction)Ordered By: Rosita Canas on 02-24-2023 HbA1c (Bld) [Mass fraction] 5.6 % 3.8-5.6 [facility] Comment on above: Normal < 5.7 % Predi abetic 5.7 - 6.4 % Diabetic >or= 6.5 % Please note range changes. Absolute lymphocyte countOrd ered By: Rosita Canas on 02-18-2023 Lymphocytes Auto (Unsp spec) [#/Vol] 2.75 10*3/uL 0.83-4.51 [facility] Basophil percentageOrdered B y: Rosita Canas on 02-18-2023 Basophils/100 WBC (Bld) 0.7 % 0-1 [facility] Bilirubin [Mass/Vol] 0.50 mg/dL 0.20-1.00 [facility] Comment on above: For patients on eltr ombopag therapy, use of Dimension Mead TBIL is not recommended. Chloride [Moles/Vol] 108 mmol/L 98-107 [facility] Cholesterol [Mass/Vol] 249 mg/dL <200 [facility] Comment on above: <200 mg/dL Desirable 200-240 mg/dL Borderline >240 mg/dL High Risk Eosinophils/100 WBC (Bld) 4.8 % 0-5 [facility] Glucose [Mass/Vol] 105 mg/dL 74-106 [facility] Comment on above: Fasting Glucose resu lt from 100 to 125 mg/dL suggests IMPAIRED HOMEOSTASIS per A.D.A. criteria. Neutrophils (Bld) [#/Vol] 4.2 10*3/uL 2.0-7.7 [facility] Neutrophils/100 WBC (Bld) 52.6 % 47-70 [facility] Potassium [Moles/Vol] 4.0 mmol/L 3.5-5.1 [facility] Protein [Mass/Vol] 7.1 g/dL 6.4-8.2 [facility] Sodium [Moles/Vol] 142 mmol/L 136-145 [facility] Triglyceride [Mass/Vol] 116 mg/dL <199 [facility] Comment on above: The drugs N-Acetylcy steine and Metamizole may falsely depress this assay.Serum Triglycerides Reference Interval Normal <150 mg/dL Borderline high 150 - 199 mg/dL High 200 - 499 mg/dL Very High > or = 500 mg/dL WBC (Bld) [#/Vol] 8.1 10*3/uL 4.4-11.0 [facility] Blood erythrocytes count (nu mber/volume)Ordered By: Rosita Canas on 02-18-2023 RBC (Bld) [#/Vol] 4.50 10*6/uL 4.2-5.4 [facility] Blood hemoglobin measurement (mass/volume)Ordered By: Rosita Canas on 02-18-2023 Hemoglobin (Bld) [Mass/Vol] 13.6 g/dL 12.0-15.0 [facility] Blood lymphocytes/100 leukoc ytesOrdered By: Rosita Canas on 02-18-2023 Lymphocytes/100 WBC (Bld) 34.2 % 19-41 [facility] Blood monocytes/100 leukocyt esOrdered By: Rosita Canas on 02-18-2023 Monocytes/100 WBC (Bld) 7.3 % 0-10 [facility] Blood platelet mean volumeOr dered By: Rosita Canas on 02-18-2023 Platelet mean volume (Bld) [Entitic vol] 10.0 fL 6.2-12.0 [facility] Determination of erythrocyte mean corpuscular volume (MCV)Ordered By: Rosita Canas on 02-18-2023 MCV (RBC) [Entitic vol] 95.6 fL 81-99 [facility] Hematocrit Auto (Bld) [Volum e fraction]Ordered By: Rosita Canas on 02-18-2023 Hematocrit (Bld) [Volume fraction] 43.0 % 37-47 [facility] - Chemistry and C hemistry - challengeOrdered By: Rosita Canas on 02-18-2023 ALP [Catalytic activity/Vol] 99 U/L 45-117 [facility] ALT [Catalytic activity/Vol] 38 U/L 13-56 [facility] CO2 [Moles/Vol] 28.0 mmol/L 21.0-32.0 [facility] Globulin (S) [Mass/Vol] 3.7 g/dL 2.2-4.2 [facility] Urea nitrogen/Creatinine [Mass ratio] 14.7 mg/mg 10-20 [facility] - Hematology and Cell countsOrdered By: Rosita Canas on 02-18-2023 Erythrocyte distribution width (RBC) [Entitic vol] 47.8 fL 35.1-43.9 [facility] Erythrocyte distribution width (RBC) [Ratio] 13.5 % 11.6-14.6 [facility] Immature granulocytes/100 WBC (Bld) 0.400 % 0.0-0.9 [facility] Comment on above: IG% - Immature Granu locytes (promyelocytes, myelocytes and metamyelocytes) > 1% indicates that a LEFT SHIFT is Present. MCH (RBC) [Entitic mass] 30.2 pg 27.0-32.0 [facility] Nucleated RBC/100 WBC (Bld) [Ratio] 0 % 0-5 [facility] MCHC Auto (RBC) [Mass/Vol]Or dered By: Rosita Canas on 02-18-2023 MCHC (RBC) [Mass/Vol] 31.6 g/dL 32-36 [facility] No Panel InformationOrdered By: Rosita Canas on 02-18-2023 Estimated GFR (MDRD) Amer 68 mL/min >60 [facility] Comment on above: GFR Calc Estimated GFR (MDRD) Non-Af Amer 56 mL/min >60 [facility] Comment on above: Non- GFR Calc Platelets bldOrdered By: Shalonda Canas on 02-18-2023 Platelets (Bld) [#/Vol] 311 10*3/uL 150-450 [facility] Serum or plasma albumin mickie urement (mass/volume)Ordered By: Rosita Canas on 02-18-2023 Albumin [Mass/Vol] 3.4 g/dL 3.2-5.0 [facility] Serum or plasma albumin/glob ulin mass ratioOrdered By: Rosita Canas on 02-18-2023 Albumin/Globulin [Mass ratio] 0.9 {ratio} 0.9-2.4 [facility] Serum or plasma calcium mickie urement (mass/volume)Ordered By: Rosita Canas on 02-18-2023 Calcium [Mass/Vol] 9.5 mg/dL 8.5-10.1 [facility] Serum or plasma cholesterol in HDL measurement (mass/volume)Ordered By: Rosita Canas on 02-18-2023 Cholesterol in HDL [Mass/Vol] 68 mg/dL >40 [facility] Comment on above: The drugs N-Acetylcy steine and Metamizole may falsely depress this assay. Reference Range HDL <40 mg/dL Low HDL Cholesterol HDL >or= 60 mg/dL High HDL Cholesterol Serum or plasma cholesterol in VLDL measurement (mass/volume)Ordered By: Rosita Canas on 02-18-2023 Cholesterol in VLDL [Mass/Vol] 23 mg/dL 5-40 [facility] Serum or plasma creatinine m easurement (mass/volume)Ordered By: Rosita Canas on 02-18-2023 Creatinine [Mass/Vol] 1.09 mg/dL 0.55-1.02 [facility] Comment on above: The validity of the calculated GFR & GFRAA in patients over 70 years has not been determined. Clinical correlation is essential. Serum or plasma low density lipoprotein (LDL) cholesterol measurement (mass/volume)Ordered By: Rosita Canas on 02-18-2023 Cholesterol in LDL [Mass/Vol] 158 mg/dL 0-130 [facility] Serum or plasma urea nitroge n measurement (mass/volume)Ordered By: Rosita Canas on 02-18-2023 Urea nitrogen [Mass/Vol] 16 mg/dL 7-18 [facility] Thin prep Papanicolaou smear with manual screeningOrdered By: Rosita Canas on 02-18-2023 Thin prep Papanicolaou smear with manual screening 18 U/L 15-37 [facility] Thin prep Papanicolaou smear with manual screening 6 5-15 [facility] Culture, urineOrdered By: Leilani Canas on 11-01-2022 Bacteria identified Cx Nom (U) Presumptive E. coli [facility] Laboratory - Microbiology an d Antimicrobial susceptibilityon 08-16-2022 SARS-CoV-2 (COVID-19) RNA HANNA+probe Ql (Unsp spec) Not detected [facility] No Panel Informationon 08-16 Influenza Types A,B Rapid (Clinic) Not detected [facility] Laboratory - Microbiology an d Antimicrobial susceptibilityon 05-10-2022 SARS-CoV-2 (COVID-19) RNA HANNA+probe Ql (Unsp spec) Detected [facility] No Panel Informationon 05-10 Influenza Types A,B Rapid (Clinic) Not detected [facility] Absolute lymphocyte counton 10-29-2021 Lymphocytes Auto (Unsp spec) [#/Vol] 2.84 10*3/uL 0.83-4.51 [facility] Work Phone: Basophil percentageon 2021 Basophils/100 WBC (Bld) 0.6 % 0-1 [facility] Work Phone: Chloride [Moles/Vol] 108 mmol/L 98-107 os [facility] Work Phone: Eosinophils/100 WBC (Bld) 5.7 % 0-5 [facility] Work Phone: [phone] Glucose [Mass/Vol] 110 mg/dL 74-106 [facility] Work Phone: Comment on above: Fasting Glucose resu lt from 100 to 125 mg/dL suggests IMPAIRED HOMEOSTASIS per A.D.A. criteria. Neutrophils (Bld) [#/Vol] 3.4 10*3/uL 2.0-7.7 [facility] Work Phone: Neutrophils/100 WBC (Bld) 46.6 % 47-70 [facility] Work Phone: Potassium [Moles/Vol] 4.2 mmol/L 3.5-5.1 [facility] Work Phone: Sodium [Moles/Vol] 140 mmol/L 136-145 [facility] Work Phone: WBC (Bld) [#/Vol] 7.2 10*3/uL 4.4-11.0 [facility] Work Phone: Blood erythrocytes count (nu mber/volume)on 10-29-2021 RBC (Bld) [#/Vol] 4.65 10*6/uL 4.2-5.4 [facility] Work Phone: Blood hemoglobin measurement (mass/volume)on 10-29-2021 Hemoglobin (Bld) [Mass/Vol] 14.1 g/dL 12.0-15.0 [facility] Work Phone: Blood lymphocytes/100 leukoc yteson 10-29-2021 Lymphocytes/100 WBC (Bld) 39.3 % 19-41 [facility] Work Phone: Blood monocytes/100 leukocyt eson 10-29-2021 Monocytes/100 WBC (Bld) 7.5 % 0-10 [facility] Work Phone: Blood platelet mean volumeon 10-29-2021 Platelet mean volume (Bld) [Entitic vol] 10.3 fL 6.2-12.0 [facility] Work Phone: Determination of erythrocyte mean corpuscular volume (MCV)on 10-29-2021 MCV (RBC) [Entitic vol] 93.8 fL 81-99 [facility] Work Phone: Hematocrit Auto (Bld) [Volum e fraction]on 10-29-2021 Hematocrit (Bld) [Volume fraction] 43.6 % 37-47 [facility] Work Phone: Laboratory - Chemistry and C hemistry - challengeon 10-29-2021 CO2 [Moles/Vol] 28.0 mmol/L 21.0-32.0 [facility] Work Phone: Natriuretic peptide B (Bld) [Mass/Vol] 66.9 pg/mL 0-100 [facility] Work Phone: Urea nitrogen/Creatinine [Mass ratio] 18.7 mg/mg 10-20 [facility] Work Phone: Laboratory - Hematology and Cell countson 10-29-2021 Erythrocyte distribution width (RBC) [Entitic vol] 46.5 fL 35.1-43.9 [facility] Work Phone: Erythrocyte distribution width (RBC) [Ratio] 13.6 % 11.6-14.6 [facility] Work Phone: Immature granulocytes/100 WBC (Bld) 0.300 % 0.0-0.9 [facility] Work Phone: Comment on above: IG% - Immature Granu locytes (promyelocytes, myelocytes and metamyelocytes) > 1% indicates that a LEFT SHIFT is Present. MCH (RBC) [Entitic mass] 30.3 pg 27.0-32.0 [facility] Work Phone: Nucleated RBC/100 WBC (Bld) [Ratio] 0 % 0-5 [facility] Work Phone: MCHC Auto (RBC) [Mass/Vol]on 10-29-2021 MCHC (RBC) [Mass/Vol] 32.3 g/dL 32-36 [facility] Work Phone: No Panel Informationon 10-29 Estimated GFR (MDRD) Amer 79 mL/min >60 [facility] Work Phone: Comment on above: GFR Calc Estimated GFR (MDRD) Non-Af Amer 65 mL/min >60 [facility] Work Phone: Comment on above: Non- GFR Calc Platelets bldon 10-29-2021 Platelets (Bld) [#/Vol] 314 10*3/uL 150-450 [facility] Work Phone: Serum or plasma calcium mickie urement (mass/volume)on 10-29-2021 Calcium [Mass/Vol] 9.3 mg/dL 8.5-10.1 [facility] Work Phone: Serum or plasma creatinine m easurement (mass/volume)on 10-29-2021 Creatinine [Mass/Vol] 0.96 mg/dL 0.55-1.02 [facility] Work Phone: Comment on above: The validity of the calculated GFR & GFRAA in patients over 70 years has not been determined. Clinical correlation is essential. Serum or plasma urea nitroge n measurement (mass/volume)on 10-29-2021 Urea nitrogen [Mass/Vol] 18 mg/dL 7-18 [facility] Work Phone: Thin prep Papanicolaou smear with manual screeningon 10-29-2021 Thin prep Papanicolaou smear with manual screening 4 5-15 [facility] Work Phone: CNOVon 03-31-2018 CNOV Office Visit (UCT[facility]) ----ANA MARIA FIGUEREDO ([id number]) 1970 [facility] Time Provider Department03/31/18 2:45 PM WENDY RENO [facility] During your visit today, we recorded the following information about you: Temperature Pulse Respiration Blood pressure 98.7 degrees 101/minute 16/minute 136/86 Weight Last Period 109.8 kg 07/18/18Wendy Reno APRN.FAMILY PRACTICE PHYSICIAN ASSISTANT 03/31/2018 2:43 PM SignedPatient Education for Female Urinary Tract InfectionsPossible complications: Pyelonehritis Renal abscessExpected course/prognosis:* symptoms resolve within 2-3 days after starting treatment in almost allpatients* one-fourth of women with simple UTI experience a second UTI within 6 months,and half at some time during lifetime.* patients with multiple recurrent UTI and no underlying urinary tractabnormality may receive long-term prophylactic antibioitic treatment.Trimethoprim-sulfa methoxazole and nitrofurantoin common used.* women with frequent or intercourse-related UTI should empty bladderimmediately before and following intercourse and consider postcoital antibiotictreamentInstructio ns:* Maintain good hydration* Avoid sexual intercourse when symptoms present*Take antibiotic as directed* Return if symptoms not resolved or markedly improved within 48 hours* Return if fever, chills, or flank pain develop* If taking prophylactic antiobiotics, take at bedtime* Take showers instead of tub baths* Avoid feminine hygiene sprays and scented douches* Wipe urethra from front to backPlease call or return to the office if you are not feeling better in 5-7 days.You can try taking OTC Uristat (pyridium) if needed for burning. Beware thatit will turn your urine orange/red.Wendy Reno APRN.FAMILY PRACTICE PHYSICIAN ASSISTANT 03/31/2018 3:29 PM SignedSubjectiveHPIPt presents with c/o dysuria, urinary frequency x 2 days.Took OTC UA test which was positive for nit and warren.Denies fever, chills, myalgias, abd/flank/back pain.Review of SystemsConstitutional: Negative for chills and fever.Gastrointestinal: Negative for abdominal pain, constipation, diarrhea, nauseaand vomiting.Genitourinary: Positive for dysuria and frequency. Negative for flank pain,hematuria and urgency.Musculoskeletal: Negative for back pain and myalgias.ObjectivePhysical ExamConstitutional: She is oriented to person, place, and time and well-developed,well-nourishe d, and in no distress. No distress.Abdominal: There is no CVA tenderness.Neurological: She is alert and oriented to person, place, and time.Skin: Skin is warm and dry. She is not diaphoretic.BP 136/86 Pulse 101 Temp 37.1 ?C (98.7 ?F) (Left Tympanic) Resp 16 Wt 109.8 kg (242 lb) LMP 02/08/2018 (Exact Date) SpO2 99% BMI 36.80kg/m?.Patient presents with:burning with urination: with frequency x 2 daysPAST MEDICAL HISTORYDiagnosis Date- Anxiety- DepressionPAST SURGICAL HISTORYProcedure Laterality Date- REMOVAL GALLBLADDER- REMOVE TONSILS/ADENOIDS,<12 Y/O- TREAT ECTOPIC PREG,RMV TUBE/OVARY removal left fallopian tubeALLERGIES Patient has no known allergies.MEDICATIONSclonaze CURTIS (KLONOPIN) 0.5 mg tablet Take 0.5 mg by mouth twice daily as needed.HYDROCHLOROTHIAZIDE ORAL Take by mouth.buspirone HCl (BUSPIRONE ORAL) Take by mouth.MULTI-VITAMIN ORAL Take by mouth.nitrofurantoin monohydrate and macrocrystal (MACROBID) 100 mg capsule Take 1capsule by mouth twice daily with meals for 7 days.phenazopyridine (PYRIDIUM) 100 mg tablet Take 1 tablet by mouth three timesdaily as needed for up to 2 days.Benzonatate 200 mg capsule Take 1 capsule by mouth three times daily as needed.FAMILY HISTORYProblem Relation Age of Onset- Diabetes Mother- Heart Mother- Hypertension Mother- Genitourinary () Mother- Breast Cancer Mother- Ovarian cancer Mother- Hypertension BrotherSocial HistorySubstance Use Topics- Smoking status: Current Every Day Smoker Packs/day: 1.00 Years: 23.00 Types: Cigarettes- Smokeless tobacco: Never Used- Alcohol use 3.0 oz/week 1 Glasses of Wine (5oz), 1 Cans of Beer (12oz) per weekASSESSMENT/PLAN:1. Burning with urination - ICD9: 788.1, ICD10: R30.0 (primary diagnosis)acute- UA positive for warren esterase- Send urine for culture- Patient education for prevention given- URINE CULTURE- UA DIP B/O- NITROFURANTOIN MONOHYDRATE AND MACROCRYSTAL 100 MG ORAL CAP- PHENAZOPYRIDINE 100 MG TABLET2. Urine frequency - ICD9: 788.41, ICD10: R35.0The patient is instructed to return or seek emergency treatment if symptomsbecome worse or with any acute change in condition.The patient verbalizes understanding and is in agreement with plan of care.Wendy Reno CNPReferring Provider: SELF [[id number]]Allergies As of Date: 03/31/2018(No Known Allergies)Date Reviewed: 03/31/2018Reviewed by: Jassi Cardoza Ma - Fully AssessedReason for Visit: burning with urination [Other] Cmt: with frequency x 2 daysPrimary Visit Diagnosis:Burning with urination [R30.0] Other Visit Diagnosis:Urine frequency [R35.0]Order(s):URINE CULTURE [SQURCUL] Order #: [id number] UA DIP, URINE (POC) [[id number]] Order #: [id number]. #:[id number] nitrofurantoin monohydrate and macrocrystal (MACROBID) 100 mg capsuleTake 1 capsule by mouth twice daily with meals for 7 days.Disp: 14 capsuleRfl: 0 phenazopyridine (PYRIDIUM) 100 mg tabletTake 1 tablet by mouth three times daily as needed for up to 2 days.Disp: 6 tabletRfl: 0Prescriptions as of 03/31/2018 Sig: CLONAZEPAM 0.5 MG TABLET Take 0.5 mg by mouth twice da* HYDROCHLOROTHIAZIDE ORAL Take by mouth. BUSPIRONE ORAL Take by mouth. * MULTI-VITAMIN ORAL Take by mouth. NITROFURANTOIN MONOHYDRATE AND * Take 1 capsule by mouth twice* PHENAZOPYRIDINE 100 MG TABLET Take 1 tablet by mouth three * BENZONATATE 200 MG CAPSULE Take 1 capsule by mouth three* Patient not taking: Reported on 03/31/2018Medication notes this encounter CLONAZEPAM 0.5 MG TABLET >> Jassi Cardoza Ma 03/31/2018 2:35 PM >> JASSI CARDOZA MA Mar 31, 2018 2:35 PM PRN-Dr. Peters List As Of Date 03/31/2018 Noted Resolved Anxiety [F41.9] Depression [F32.9] Other instructions from your clinician: Patient Education for Female Urinary Tract Infections Possible complications: Pyelonehritis Renal abscess Expected course/prognosis: * symptoms resolve within 2-3 days after starting treatment in almost all patients * one-fourth of women with simple UTI experience a second UTI within 6 months, and half at some time during lifetime. * patients with multiple recurrent UTI and no underlying urinary tract abnormality may receive long-term prophylactic antibioitic treatment. Trimethoprim-sulfamethoxazol e and nitrofurantoin common used. * women with frequent or intercourse-related UTI should empty bladder immediately before and following intercourse and consider postcoital antibiotic treament Instructions: * Maintain good hydration * Avoid sexual intercourse when symptoms present *Take antibiotic as directed * Return if symptoms not resolved or markedly improved within 48 hours * Return if fever, chills, or flank pain develop * If taking prophylactic antiobiotics, take at bedtime * Take showers instead of tub baths * Avoid feminine hygiene sprays and scented douches * Wipe urethra from front to back Please call or return to the office if you are not feeling better in 5-7 days. You can try taking OTC Uristat (pyridium) if needed for burning. Beware that it will turn your urine orange/red.Prescriptions ordered this encounter Disp Refills Start End NITROFURANTOIN MONOHYDRATE AND MACROCR* 14 c* 0 03/31/2018 04/07/2018 Route: ORAL Sig: Take 1 capsule by mouth twice daily with meals for 7 days. PHENAZOPYRIDINE 100 MG TABLET 6 ta* 0 03/31/2018 04/02/2018 Route: ORAL Sig: Take 1 tablet by mouth three times daily as needed for up to 2 days. Status:Closed by WENDY RENO CNP on 03/31/18 Normal [facility] PROGRESSon 03-31-2018 Protein mass conc HNO ID: [id number] thor: Wendy RenoSer: (none)Author Type: Nurse PractitionerType: Progress NotesFiled: 03/31/2018 3:29 PMNote Text:SubjectiveHPIPt presents with c/o dysuria, urinary frequency x 2 days.Took OTC UA test which was positive for nit and warren.Denies fever, chills, myalgias, abd/flank/back pain.Review of SystemsConstitutional: Negative for chills and fever.Gastrointestinal: Negative for abdominal pain, constipation, diarrhea,nausea and vomiting.Genitourinary: Positive for dysuria and frequency. Negative for flankpain, hematuria and urgency.Musculoskeletal: Negative for back pain and myalgias.ObjectivePhysical ExamConstitutional: She is oriented to person, place, and time andwell-developed, well-nourished, and in no distress. No distress.Abdominal: There is no CVA tenderness.Neurological: She is alert and oriented to person, place, and time.Skin: Skin is warm and dry. She is not diaphoretic.BP 136/86 Pulse 101 Temp 37.1 ?C (98.7 ?F) (Left Tympanic) Resp16 Wt 109.8 kg (242 lb) LMP 02/08/2018 (Exact Date) SpO2 99% BMI 36.80 kg/m?.Patient presents with:burning with urination: with frequency x 2 daysPAST MEDICAL HISTORYDiagnosis Date- Anxiety- DepressionPAST SURGICAL HISTORYProcedure Laterality Date- REMOVAL GALLBLADDER- REMOVE TONSILS/ADENOIDS,<12 Y/O- TREAT ECTOPIC PREG,RMV TUBE/OVARY removal left fallopian tubeALLERGIES Patient has no known allergies.MEDICATIONSclonaze CURTIS (KLONOPIN) 0.5 mg tablet Take 0.5 mg by mouth twice daily asneeded.HYDROCHLOROTHIAZIDE ORAL Take by mouth.buspirone HCl (BUSPIRONE ORAL) Take by mouth.MULTI-VITAMIN ORAL Take by mouth.nitrofurantoin monohydrate and macrocrystal (MACROBID) 100 mg capsule Take1 capsule by mouth twice daily with meals for 7 days.phenazopyridine (PYRIDIUM) 100 mg tablet Take 1 tablet by mouth threetimes daily as needed for up to 2 days.Benzonatate 200 mg capsule Take 1 capsule by mouth three times daily asneeded.FAMILY HISTORYProblem Relation Age of Onset- Diabetes Mother- Heart Mother- Hypertension Mother- Genitourinary () Mother- Breast Cancer Mother- Ovarian cancer Mother- Hypertension BrotherSocial HistorySubstance Use Topics- Smoking status: Current Every Day Smoker Packs/day: 1.00 Years: 23.00 Types: Cigarettes- Smokeless tobacco: Never Used- Alcohol use 3.0 oz/week 1 Glasses of Wine (5oz), 1 Cans of Beer (12oz) per weekASSESSMENT/PLAN:1. Burning with urination - ICD9: 788.1, ICD10: R30.0 (primary diagnosis)acute- UA positive for warren esterase- Send urine for culture- Patient education for prevention given- URINE CULTURE- UA DIP B/O- NITROFURANTOIN MONOHYDRATE AND MACROCRYSTAL 100 MG ORAL CAP- PHENAZOPYRIDINE 100 MG TABLET2. Urine frequency - ICD9: 788.41, ICD10: R35.0The patient is instructed to return or seek emergency treatment ifsymptoms become worse or with any acute change in condition.The patient verbalizes understanding and is in agreement with plan ofcare.Wendy Reno, FAMILY PRACTICE PHYSICIAN ASSISTANT Normal [facility] Urine Cultureon 03-31-2018 Bacteria identified Cx Nom (U) Sp. Request/Comment: - Specimen received in preservativeCulture Result - 10,000 - <50,000 CFU/ml Escherichia coli --> ABNORMAL ALERTORGANISM: Escherichia coliMETHOD: Minimum inhibitory concentration(Vitek)Antibiot ic Interp CHARY StatusAmpicillin RESISTANT >=32 FGentamicin RESISTANT >=16 FTrimeth sulfameth RESISTANT >=320 FCefazolin SUSCEPTIBLE <=4 FCLSI breakpoints for therapy of uncomplicated UTI's due to E.coli, K.pneumoniae, and P.mirabilis were applied and may be used to predict the activity of oral agents(cefaclor, cefdinir, cefpodoxime, cefprozil, cefuroxime, cephalexin, loracarbef).Ciprofloxacin SUSCEPTIBLE <=0.25 FNitrofurantoin SUSCEPTIBLE <=16 FTobramycin SUSCEPTIBLE 4 FCefepime SUSCEPTIBLE <=1 FPiperacillin/Tazobac SUSCEPTIBLE <=4 FAmpicillin Sulbact INTERMEDIATE 16 FCeftriaxone SUSCEPTIBLE <=1 FMeropenem SUSCEPTIBLE <=0.25 FErtapenem SUSCEPTIBLE <=0.5 F Critically abnormal [facility] Comment on above: Performed By: #### U RCUL ####[facility] [place] [id number] [place], [place] [phone] CNOVon 03-14-2018 CNOV Office Visit ([facility]) ----ANA MARIA FIGUEREDO ([id number]) 1970 FDate Time Provider Department03/14/18 5:30 PM MERARI AMIN (FAMILY PRACTICE PHYSICIAN ASSISTANT) [facility] During your visit today, we recorded the following information about you: Temperature Pulse Respiration Blood pressure 99.7 degrees 80/minute 16/minute 130/84 Weight 108 kgMerari Amin APRN.CNP 03/14/2018 6:05 PM SignedSubjectiveThe history is provided by the patient. No spanish language lecturer was used.HPI Ana Maria Figueredo is a 47 year old female who presents today for CC ofnasal congestion and head congestion This started 2 weeks ago. She is alsohaving a cough with post nasal drainage. 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 Negative for chills, fever and malaise/fatigue.HENT: Positive for congestion and sinus pain. Negative for ear pain and sorethroat.Respiratory: Positive for cough. Negative for sputum production, shortness ofbreath and wheezing.Cardiovascular: Negative for chest pain.Musculoskeletal: Negative for myalgias.Skin: Negative for rash.Neurological: Positive for headaches (sionus).ObjectivePhysical ExamConstitutional: She is well-developed, well-nourished, and in no distress.HENT:Head: Normocephalic and atraumatic.Right Ear: Tympanic membrane, external ear and ear canal normal. Tympanicmembrane is not injected, not erythematous, not retracted and not bulging. Nomiddle ear effusion.Left Ear: Tympanic membrane, external ear and ear canal normal. Tympanicmembrane is not injected, not erythematous, not retracted and not bulging. Nomiddle ear effusion.Nose: Mucosal edema and rhinorrhea present. Right sinus exhibits maxillarysinus tenderness and frontal sinus tenderness. Left sinus exhibits maxillarysinus tenderness and frontal sinus tenderness.Mouth/Throat: Uvula is midline and mucous membranes are normal. Posteriororopharyngeal erythema present. No oropharyngeal exudate, posteriororopharyngeal edema or tonsillar abscesses.Clear Post Nasal drainageEyes: Pupils are equal, round, and reactive to light. Conjunctivae and EOM arenormal.Neck: Normal range of motion.Cardiovascular: Normal rate, regular rhythm and normal heart sounds.Pulmonary/Chest: Effort normal and breath sounds normal. No respiratorydistress. She has no decreased breath sounds. She has no wheezes. She has norhonchi. She has no rales.A dry harsh cough was noted during this encounter.Talking in full sentences.Handling secretions without drooling.Lips and nailbeds are pink without cyanosis.Lymphadenopathy: Head (right side): No submental, no submandibular, no tonsillar, nopreauricular and no posterior auricular adenopathy present. Head (left side): No submental, no submandibular, no tonsillar, nopreauricular and no posterior auricular adenopathy present. She has no cervical adenopathy. Right cervical: No superficial cervical and no posterior cervicaladenopathy present. Left cervical: No superficial cervical and no posterior cervicaladenopathy present. Right: No supraclavicular adenopathy present. Left: No supraclavicular adenopathy present.Skin: Skin is warm and dry.Psychiatric: Affect normal.Nursing note and vitals reviewed. ASSESSMENT/PLAN:1. Sinobronchitis - ICD9: 473.9, 490, ICD10: J32.9, J40- Will begin treatment with Doxycline- DOXYCYCLINE MONOHYDRATE 100 MG CAPSULE-Increase fluid intake. Try to drink at least 8 glasses of non caffeinatedfluids daily.--Rest as much as possible.-Do the nasal saline irrigation at least 2 x day to relieve nasal mucous andcongestion: brands include Michael Med, Simply saline, [place] nasal spray, or eventhe generic store brand one is ok.Take the entire course of antibiotics as prescribed. DO NOT stop taking itearly, even if you are feeling better.-Practice good hygiene, wash hands frequently.-Monitor for signs of worsening infection: increased temperature, pain in face,ear pain or headaches or increase in nasal congestion/mucous that is notimproving.-Educated patient on side effects of medication.Zyrtec or Claritin 10 mg By mouth daily at bedtimeFlonase or Nasonex 1 spray each nostril two times a day.Diagnosis and treatment plan were discussed and questions were answered to thepatient's satisfaction. Pt acknowledged understanding of concepts and follow upplan.Specific signs and symptoms that would indicate the need for higher level ofcare were discussed in detail warranting prompt ER evaluation.Merari Amin APRN.Tomasa Amin APRN.CNP 03/14/2018 5:59 PM SignedASSESSMENT/PLAN:1. Sinobronchitis - ICD9: 473.9, 490, ICD10: J32.9, J40- Will begin treatment with Doxycline- DOXYCYCLINE MONOHYDRATE 100 MG CAPSULE-Increase fluid intake. Try to drink at least 8 glasses of non caffeinatedfluids daily.--Rest as much as possible.-Do the nasal saline irrigation at least 2 x day to relieve nasal mucous andcongestion: brands include Michael Med, Simply saline, [place] nasal spray, or eventhe generic store brand one is ok.Take the entire course of antibiotics as prescribed. DO NOT stop taking itearly, even if you are feeling better.-Practice good hygiene, wash hands frequently.-Monitor for signs of worsening infection: increased temperature, pain in face,ear pain or headaches or increase in nasal congestion/mucous that is notimproving.-Educated patient on side effects of medication.Zyrtec or Claritin 10 mg By mouth daily at bedtimeFlonase or Nasonex 1 spray each nostril two times a day.Referring Provider: SELF [[id number]]Allergies As of Date: 03/14/2018(No Known Allergies)Date Reviewed: 03/14/2018Reviewed by: Merari JoDirector Of Provider Relations) Brennan - Fully AssessedReason for Visit: Head Congestion [234] Cmt: x 2 weeks, chest congestion, cough, itchy and watery eyes x 1 weekPrimary Visit Diagnosis:Sinobronchitis [J32.9, J40]Order(s):doxycycline monohydrate (MONODOX) 100 mg capsuleTake 1 capsule by mouth twice daily for 10 days.Disp: 20 capsuleRfl: 0 Benzonatate 200 mg capsuleTake 1 capsule by mouth three times daily as needed.Disp: 30 capsuleRfl: 0Prescriptions as of 03/14/2018 Sig: HYDROCHLOROTHIAZIDE ORAL Take by mouth. BUSPIRONE ORAL Take by mouth. * MULTI-VITAMIN ORAL Take by mouth. DOXYCYCLINE MONOHYDRATE 100 M* Take 1 capsule by mouth twice* BENZONATATE 200 MG CAPSULE Take 1 capsule by mouth three*Problem List As Of Date 03/14/2018 Noted Resolved Anxiety [F41.9] Depression [F32.9] Other instructions from your clinician: ASSESSMENT/PLAN: 1. Sinobronchitis - ICD9: 473.9, 490, ICD10: J32.9, J40 - Will begin treatment with Doxycline - DOXYCYCLINE MONOHYDRATE 100 MG CAPSULE -Increase fluid intake. Try to drink at least 8 glasses of non caffeinated fluids daily. --Rest as much as possible. -Do the nasal saline irrigation at least 2 x day to relieve nasal mucous and congestion: brands include Michael Med, Simply saline, [place] nasal spray, or even the generic store brand one is ok. Take the entire course of antibiotics as prescribed. DO NOT stop taking it early, even if you are feeling better. -Practice good hygiene, wash hands frequently. -Monitor for signs of worsening infection: increased temperature, pain in face, ear pain or headaches or increase in nasal congestion/mucous that is not improving. -Educated patient on side effects of medication. Zyrtec or Claritin 10 mg By mouth daily at bedtime Flonase or Nasonex 1 spray each nostril two times a day.Prescriptions ordered this encounter Disp Refills Start End DOXYCYCLINE MONOHYDRATE 100 MG CAPSU* 20 c* 0 03/14/2018 03/24/2018 Route: ORAL Sig: Take 1 capsule by mouth twice daily for 10 days. BENZONATATE 200 MG CAPSULE 30 c* 0 03/14/2018 Route: ORAL Sig: Take 1 capsule by mouth three times daily as needed.Medications Discontinued During This Encounter PREDNISONE ORAL 03/14/2018 Class: Historical Med Route: ORAL Sig: Take by mouth. Disc: Course of therapy completed AMOXICILLIN ORAL 03/14/2018 Class: Historical Med Route: ORAL Sig: Take by mouth. Disc: Course of therapy completed diclofenac, EC, 75 mg EC tablet 30 t* 0 06/15/2013 03/14/2018 Route: ORAL Sig: Take 1 tablet by mouth twice daily. For pain/inflammation. Take with food. Disc: Course of therapy completed ALPRAZolam (XANAX) 0.5 mg tablet 15 t* 0 04/06/2013 03/14/2018 Class: Print RX Route: ORAL Sig: Take 1 tablet by mouth once daily. Disc: Course of therapy completed citalopram 40 mg tablet 90 t* 3 09/04/2012 03/14/2018 Route: ORAL Sig: Take 1 tablet by mouth once daily. Disc: Discontinued by another Health Care ProviderEncounter Number: [id number] Status:Closed by MERARI AMIN CNP on 03/14/18 [facility] PROGRESSon 03-14-2018 Protein mass conc HNO ID: [id number] thor: Merari (Foster) LakshmikService: (none)Author Type: Nurse PractitionerType: Progress NotesFiled: 03/14/2018 6:05 PMNote Text:SubjectiveThe history is provided by the patient. No spanish language lecturer was used.HPI Ana Maria Figueredo is a 47 year old female who presents today for CCof nasal congestion and head congestion This started 2 weeks ago. Sheis also having a cough with post nasal drainage. 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 Negative for chills, fever and malaise/fatigue.HENT: Positive for congestion and sinus pain. Negative for ear pain andsore throat.Respiratory: Positive for cough. Negative for sputum production, shortnessof breath and wheezing.Cardiovascular: Negative for chest pain.Musculoskeletal: Negative for myalgias.Skin: Negative for rash.Neurological: Positive for headaches (sionus).ObjectivePhysical ExamConstitutional: She is well-developed, well-nourished, and in no distress.HENT:Head: Normocephalic and atraumatic.Right Ear: Tympanic membrane, external ear and ear canal normal. Tympanicmembrane is not injected, not erythematous, not retracted and not bulging.No middle ear effusion.Left Ear: Tympanic membrane, external ear and ear canal normal. Tympanicmembrane is not injected, not erythematous, not retracted and not bulging. No middle ear effusion.Nose: Mucosal edema and rhinorrhea present. Right sinus exhibits maxillarysinus tenderness and frontal sinus tenderness. Left sinus exhibitsmaxillary sinus tenderness and frontal sinus tenderness.Mouth/Throat: Uvula is midline and mucous membranes are normal. Posteriororopharyngeal erythema present. No oropharyngeal exudate, posteriororopharyngeal edema or tonsillar abscesses.Clear Post Nasal drainageEyes: Pupils are equal, round, and reactive to light. Conjunctivae and EOMare normal.Neck: Normal range of motion.Cardiovascular: Normal rate, regular rhythm and normal heart sounds.Pulmonary/Chest: Effort normal and breath sounds normal. No respiratorydistress. She has no decreased breath sounds. She has no wheezes. She hasno rhonchi. She has no rales.A dry harsh cough was noted during this encounter.Talking in full sentences.Handling secretions without drooling.Lips and nailbeds are pink without cyanosis.Lymphadenopathy: Head (right side): No submental, no submandibular, no tonsillar, nopreauricular and no posterior auricular adenopathy present. Head (left side): No submental, no submandibular, no tonsillar, nopreauricular and no posterior auricular adenopathy present. She has no cervical adenopathy. Right cervical: No superficial cervical and no posterior cervicaladenopathy present. Left cervical: No superficial cervical and no posterior cervicaladenopathy present. Right: No supraclavicular adenopathy present. Left: No supraclavicular adenopathy present.Skin: Skin is warm and dry.Psychiatric: Affect normal.Nursing note and vitals reviewed. ASSESSMENT/PLAN:1. Sinobronchitis - ICD9: 473.9, 490, ICD10: J32.9, J40- Will begin treatment with Doxycline- DOXYCYCLINE MONOHYDRATE 100 MG CAPSULE-Increase fluid intake. Try to drink at least 8 glasses of noncaffeinated fluids daily.--Rest as much as possible.-Do the nasal saline irrigation at least 2 x day to relieve nasal mucousand congestion: brands include Michael Med, Simply saline, [place] nasal spray,or even the generic store brand one is ok.Take the entire course of antibiotics as prescribed. DO NOT stop taking itearly, even if you are feeling better.-Practice good hygiene, wash hands frequently.-Monitor for signs of worsening infection: increased temperature, pain inface, ear pain or headaches or increase in nasal congestion/mucous that isnot improving.-Educated patient on side effects of medication.Zyrtec or Claritin 10 mg By mouth daily at bedtimeFlonase or Nasonex 1 spray each nostril two times a day.Diagnosis and treatment plan were discussed and questions were answered tothe patient's satisfaction. Pt acknowledged understanding of concepts andfollow up plan.Specific signs and symptoms that would indicate the need for higher levelof care were discussed in detail warranting prompt ER evaluation.Merari Amin APRN.FAMILY PRACTICE PHYSICIAN ASSISTANT [facility] CNOVon 12-21-2017 CNOV Office Visit ([facility]) ANA MARIA FIGUEREDO ([id number]) 1970 FDate Time Provider Department12/21/17 9:40 AM SURESH HART During your visit today, we recorded the following information about you:Traci Rocha Ma 12/21/2017 9:55 AM SignedAMB ROOMING INTAKE FLOWSHEET DATARisk ScreeningDo you have concerns about personal safety or safety in the home?: NoPainPain Score: 1/10Pain Location: Knee-RightDescription: Dull, AchingDuration Amount of Time: 2.5Duration Units: WeeksFrequency: ContinuousIntervention: Other: See comment (none)Suresh Hart DO 12/21/2017 9:55 AM SignedSUBJECTIVE:Ana Maria Daleylori is a 47 year old female who is here for a right kneeinjury. It occurred 2.5 weeks ago when she fell, landing directly on knee.Symptoms include swelling over the front of the knee. She is not having anypain, but swelling persists. She has tried CAROLYN wrap.PAST MEDICAL HISTORYDiagnosis Date- Anxiety- DepressionPAST SURGICAL HISTORYProcedure Laterality Date- REMOVAL GALLBLADDER- REMOVE TONSILS/ADENOIDS,<12 Y/O- TREAT ECTOPIC PREG,RMV TUBE/OVARY removal left fallopian tubeCurrent Outpatient Prescriptions on File Prior to Visit:HYDROCHLOROTHIAZIDE ORAL Take by mouth.buspirone HCl (BUSPIRONE ORAL) Take by mouth.MULTI-VITAMIN ORAL Take by mouth.PREDNISONE ORAL Take by mouth.AMOXICILLIN ORAL Take by mouth.diclofenac, EC, 75 mg EC tablet Take 1 tablet by mouth twice daily. Forpain/inflammation. Take with food.ALPRAZolam (XANAX) 0.5 mg tablet Take 1 tablet by mouth once daily.citalopram 40 mg tablet Take 1 tablet by mouth once daily.No current facility-administered medications on file prior to visit.EXAM:General: cooperative and NADLocation: Right knee: prepatella bursa effusion with no redness, warmth or painto palpation. Normal stability exam of knee. NO ROM restrictionNeurovascular: intactX-ray: no evidence of fractureIMPRESSION:traumatic prepatellar bursitis right kneePLAN:compression sleeve, ice as directedAvoid kneeling on knee. Activity to tolerancerecheck if any signs of infection develop.Jc Dey Provider: SELF [200]Allergies As of Date: 12/21/2017(No Known Allergies)Date Reviewed: 12/21/2017Reviewed by: Traci Rocha Ma - Fully AssessedReason for Visit: New Patient [172] Cmt: Right knee injury REF: Rina Toro x-ray: 12/16/2017Primary Visit Diagnosis:Prepatellar bursitis, right knee [M70.41]Prescriptions as of 12/21/2017 Sig: HYDROCHLOROTHIAZIDE ORAL Take by mouth. BUSPIRONE ORAL Take by mouth. * MULTI-VITAMIN ORAL Take by mouth. PREDNISONE ORAL Take by mouth. AMOXICILLIN ORAL Take by mouth. DICLOFENAC SODIUM 75 MG TABLE* Take 1 tablet by mouth twice * ALPRAZOLAM 0.5 MG TABLET Take 1 tablet by mouth once d* CITALOPRAM 40 MG TABLET Take 1 tablet by mouth once d*Problem List As Of Date 12/21/2017 Noted Resolved Anxiety [F41.9] Depression [F32.9] Status:Closed by SURESH HART DO, V on 12/21/17 [facility] PROGRESSon 12-21-2017 Protein mass conc HNO ID: [id number] thor: Duyen Morris: (none)Author Type: PhysicianType: Progress NotesFiled: 12/21/2017 9:55 AMNote Text:SUBJECTIVE:Ana Maria Figueredo is a 47 year old female who is here for a right kneeinjury. It occurred 2.5 weeks ago when she fell, landing directly on knee. Symptoms include swelling over the front of the knee. She is not havingany pain, but swelling persists. She has tried CAROLYN wrap.PAST MEDICAL HISTORYDiagnosis Date- Anxiety- DepressionPAST SURGICAL HISTORYProcedure Laterality Date- REMOVAL GALLBLADDER- REMOVE TONSILS/ADENOIDS,<12 Y/O- TREAT ECTOPIC PREG,RMV TUBE/OVARY removal left fallopian tubeCurrent Outpatient Prescriptions on File Prior to Visit:HYDROCHLOROTHIAZIDE ORAL Take by mouth.buspirone HCl (BUSPIRONE ORAL) Take by mouth.MULTI-VITAMIN ORAL Take by mouth.PREDNISONE ORAL Take by mouth.AMOXICILLIN ORAL Take by mouth.diclofenac, EC, 75 mg EC tablet Take 1 tablet by mouth twice daily. Forpain/inflammation. Take with food.ALPRAZolam (XANAX) 0.5 mg tablet Take 1 tablet by mouth once daily.citalopram 40 mg tablet Take 1 tablet by mouth once daily.No current facility-administered medications on file prior to visit.EXAM:General: cooperative and NADLocation: Right knee: prepatella bursa effusion with no redness, warmth orpain to palpation. Normal stability exam of knee. NO ROM restrictionNeurovascular: intactX-ray: no evidence of fractureIMPRESSION:traumatic prepatellar bursitis right kneePLAN:compression sleeve, ice as directedAvoid kneeling on knee. Activity to tolerancerecheck if any signs of infection develop.Suresh Hart, DO [facility] Protein mass conc HNO ID: [id number] thor: Traci Rocha MaService: (none)Author Type: (none)Type: Progress NotesFiled: 12/21/2017 9:55 AMNote Text:AMB ROOMING INTAKE FLOWSHEET DATARisk ScreeningDo you have concerns about personal safety or safety in the home?: NoPainPain Score: 10Pain Location: Knee-RightDescription: Dull, AchingDuration Amount of Time: 2.5Duration Units: WeeksFrequency: ContinuousIntervention: Other: See comment (none) [facility] CNOVon 12-16-2017 CNOV Office Visit ([facility]) ----GUSTABOANA MARIA ([id number]) 1970 FDate Time Provider Department12/16/17 2:15 PM KENYA TORO (CNC MAINTENANCE TECHNICIAN) [facility] During your visit today, we recorded the following information about you: Temperature Pulse Respiration Blood pressure 97.6 degrees 70/minute 20/minute 112/80 Weight 108.9 kgKenya Toro APRN.CNP 12/16/2017 3:04 PM SignedSubjectiveHPIPatient presents with:Knee Pain: fluid in knee cap x 2 weeksPt states fell directly onto knee cap while walking landing on asphalt.Pt states pain is 3/10 on pain scale, dull achy with occasional sharp stabbingpain not associated with any certain movement.Analgesics OTC with minimal relief.ROS All other reviewed and negative other than HPI.PAST MEDICAL HISTORYDiagnosis Date- Anxiety- DepressionPAST SURGICAL HISTORYProcedure Laterality Date- REMOVAL GALLBLADDER- REMOVE TONSILS/ADENOIDS,<12 Y/O- TREAT ECTOPIC PREG,RMV TUBE/OVARY removal left fallopian tubeALLERGIES Patient has no known allergies.MEDICATIONSHYDROCH LOROTHIAZIDE ORAL Take by mouth.buspirone HCl (BUSPIRONE ORAL) Take by mouth.MULTI-VITAMIN ORAL Take by mouth.PREDNISONE ORAL Take by mouth.AMOXICILLIN ORAL Take by mouth.diclofenac, EC, 75 mg EC tablet Take 1 tablet by mouth twice daily. Forpain/inflammation. Take with food.ALPRAZolam (XANAX) 0.5 mg tablet Take 1 tablet by mouth once daily.citalopram 40 mg tablet Take 1 tablet by mouth once daily.FAMILY HISTORYProblem Relation Age of Onset- Diabetes Mother- Heart Mother- Hypertension Mother- Genitourinary () Mother- Breast Cancer Mother- Ovarian cancer Mother- Hypertension BrotherSocial HistorySubstance Use Topics- Smoking status: Current Every Day Smoker Packs/day: 1.00 Years: 23.00 Types: Cigarettes- Smokeless tobacco: Never Used- Alcohol use 3.0 oz/week 1 Glasses of Wine (5oz), 1 Cans of Beer (12oz) per weekObjectivePhysical ExamMusculoskeletal: Right knee: She exhibits effusion (moderate) and ecchymosis (healing). Sheexhibits normal range of motion, no deformity, no laceration, no erythema,normal alignment, no LCL laxity, normal patellar mobility, no bony tenderness,normal meniscus and no MCL laxity. Tenderness found. Medial joint line, lateraljoint line and patellar tendon tenderness noted.Nursing note and vitals reviewed.ASSESSMENT/PLAN:1. Right knee injury, initial encounter - ICD9: 959.7, ICD10: S89.91XA- Reviewed xray no acute fractures or dislocations.- Pt verbalized understanding.- Carolyn wrap applied- NSAIDs- RICE- F/u with pcp in 7-10 days or sooner if symptoms are not improving orworsening- XR KNEE LIMITED 2V AP/LAT RT- ORTHO CONSULTPrescription instructions reviewed with patient as applicable. Patient advisedif symptoms do not improve or if symptoms worsen sooner, to contact theirprimary care physician. Potential red flag symptoms discussed with thepatient. Reviewed appropriate action plan to take if red flag symptoms occur.Patient agreeable to treatment plan.Kenya Toro APRN.CNPReferring Provider: SELF [200]Allergies As of Date: 12/16/2017(No Known Allergies)Date Reviewed: 12/16/2017Reviewed by: Maria Del Rosario Islas Ma - Fully AssessedReason for Visit: Knee Pain [132] Cmt: fluid in knee cap x 2 weeksPrimary Visit Diagnosis:Right knee injury, initial encounter [S89.91XA] Other Visit Diagnosis:Effusion of knee joint right [M25.461]Order(s):XR KNEE LIMITED 2V AP/LAT RT [0909155] Order #: [id number] FUTURE CONSULT TO ORTHOPAEDICS [9050] Order #: [id number]: 1Prescriptions as of 12/16/2017 Sig: HYDROCHLOROTHIAZIDE ORAL Take by mouth. BUSPIRONE ORAL Take by mouth. * MULTI-VITAMIN ORAL Take by mouth. PREDNISONE ORAL Take by mouth. AMOXICILLIN ORAL Take by mouth. DICLOFENAC SODIUM 75 MG TABLE* Take 1 tablet by mouth twice * ALPRAZOLAM 0.5 MG TABLET Take 1 tablet by mouth once d* CITALOPRAM 40 MG TABLET Take 1 tablet by mouth once d*Problem List As Of Date 12/16/2017 Noted Resolved Anxiety [F41.9] Depression [F32.9]Disposition: Return if symptoms worsen or fail to improve.Follow-up and Disposition History RecordedEncounter Number: [id number] Status:Closed by KENYA TORO on 12/16/17 [facility] PROGRESSon 12-16-2017 Protein mass conc HNO ID: [id number] thor: Blanca Juarez (Rt) Brett Limon: (none)Author Type: TechnicianType: Progress NotesFiled: 12/16/2017 2:44 PMNote Text: Radiology Service Progress NotePATIENT NAME: Ana Maria FigueredoMRN: [id number] OF SERVICE: December 16, 2017TIME: 2:33 PMPATIENT IDENTITY VERIFICATION COMPLETED USING TWO (2) METHODS: Patientconfirmed name verbally and Date of .PATIENT GENDER DATA: Female. status: : NoBreastfeeding status: NO.PATIENT RELEVANT IMPLANT DATA REVIEWED: Not ApplicableRADIOLOGY DEPARTMENT: General X-ray: Exam(s) Completed: Lower ExtremityX-Ray(s): Knee, AP / LAT Right:PERIPHERAL IV DATA: Not applicableSIGNED BY: RT XuanMay 2017 2:33 PM [facility] Protein mass conc HNO ID: [id number] thor: Kenya Waddell (CenterpuncherBurt Dias: (none)Author Type: Nurse PractitionerType: Progress NotesFiled: 12/16/2017 3:04 PMNote Text:SubjectiveHPIPatient presents with:Knee Pain: fluid in knee cap x 2 weeksPt states fell directly onto knee cap while walking landing on asphalt.Pt states pain is 3/10 on pain scale, dull achy with occasional sharpstabbing pain not associated with any certain movement.Analgesics OTC with minimal relief.ROS All other reviewed and negative other than HPI.PAST MEDICAL HISTORYDiagnosis Date- Anxiety- DepressionPAST SURGICAL HISTORYProcedure Laterality Date- REMOVAL GALLBLADDER- REMOVE TONSILS/ADENOIDS,<12 Y/O- TREAT ECTOPIC PREG,RMV TUBE/OVARY removal left fallopian tubeALLERGIES Patient has no known allergies.MEDICATIONSHYDROCH LOROTHIAZIDE ORAL Take by mouth.buspirone HCl (BUSPIRONE ORAL) Take by mouth.MULTI-VITAMIN ORAL Take by mouth.PREDNISONE ORAL Take by mouth.AMOXICILLIN ORAL Take by mouth.diclofenac, EC, 75 mg EC tablet Take 1 tablet by mouth twice daily. Forpain/inflammation. Take with food.ALPRAZolam (XANAX) 0.5 mg tablet Take 1 tablet by mouth once daily.citalopram 40 mg tablet Take 1 tablet by mouth once daily.FAMILY HISTORYProblem Relation Age of Onset- Diabetes Mother- Heart Mother- Hypertension Mother- Genitourinary () Mother- Breast Cancer Mother- Ovarian cancer Mother- Hypertension BrotherSocial HistorySubstance Use Topics- Smoking status: Current Every Day Smoker Packs/day: 1.00 Years: 23.00 Types: Cigarettes- Smokeless tobacco: Never Used- Alcohol use 3.0 oz/week 1 Glasses of Wine (5oz), 1 Cans of Beer (12oz) per weekObjectivePhysical ExamMusculoskeletal: Right knee: She exhibits effusion (moderate) and ecchymosis(healing). She exhibits normal range of motion, no deformity, nolaceration, no erythema, normal alignment, no LCL laxity, normal patellarmobility, no bony tenderness, normal meniscus and no MCL laxity.Tenderness found. Medial joint line, lateral joint line and patellartendon tenderness noted.Nursing note and vitals reviewed.ASSESSMENT/PLAN:1. Right knee injury, initial encounter - ICD9: 959.7, ICD10: S89.91XA- Reviewed xray no acute fractures or dislocations.- Pt verbalized understanding.- Carolyn wrap applied- NSAIDs- RICE- F/u with pcp in 7-10 days or sooner if symptoms are not improving orworsening- XR KNEE LIMITED 2V AP/LAT RT- ORTHO CONSULTPrescription instructions reviewed with patient as applicable. Patientadvised if symptoms do not improve or if symptoms worsen sooner, tocontact their primary care physician. Potential red flag symptomsdiscussed with the patient. Reviewed appropriate action plan to take ifred flag symptoms occur. Patient agreeable to treatment plan.Kenya Toro APRN.FAMILY PRACTICE PHYSICIAN ASSISTANT [facility] XR KNEE 2V AP/LAT RTon 12-16 Protein mass conc * * *Final Report* * *DATE OF EXAM: Dec 16 2017 2:44PM WOX [id number] - XR KNEE 2V AP/LAT RT / REASON: Unspecified injury of right lower leg, initial encounter * * * * Physician Interpretation * * * * Indication: Right knee painComparison: NoneAP and lateral x-rays of the right knee are obtained. There is normal architecture and mineralization of the bones. There is no acute fracture or dislocation. Joint spaces are maintained. There is soft tissue swelling of the anterior right knee.Impression:1. No acute fracture or dislocation.Skoog Machine Operator : PSCB Transcribe Date/Time: Dec 16 2017 3:10PDictated by : HECTOR GARCIA MDThihong examination was interpreted and the report reviewed and electronically signed by: HECTOR GARCIA MD on Dec 16 2017 3:13PM [id number] [facility] CNCOon 05-26-2017 CNCO HNO ID: [id number] thor: Mammography CoordinatorService: (none)Author Type: PhysicianType: LetterFiled: 05/30/2017 11:33 PMNote Text:May 26, 2017 PID: [id number] [place], [place] [address]Qgmt Ms. Figueredo,We are pleased to inform you that the results of your recent breastimaging exam on 05/26/2017 are normal.Your mammogram demonstrates that you have dense breast tissue, which couldhide abnormalities. Dense breast tissue, in and of itself, is arelatively common condition. Therefore, this information is not providedto cause undue concern; rather, it is to raise your awareness and promotediscussion with your health care provider regarding the presence of densebreast tissue in addition to other risk factors. Early detection ofcancer is very important. We also understand recommendations regardingbreast cancer screening are controversial. Please discuss with yourprimary care provider which strategy is best for you and whether amammogram is right for you.Your imaging studies and report will [facility] and are available for yourcontinuing care.Thank you for allowing us to help in meeting your health care needs.Sincerely,Dr. BolivarInterpreting [facility]ologistWP[facility] (Normal over 40) Normal [facility] SCREENINGon 05-26-2017 [facility] SCREENING * * *Final Report* * *DATE OF EXAM: May 26 2017 4:39PM GAIL [id number] - [facility] SCREENING / REASON: Bilateral Screening * * * * Physician Interpretation * * * *RESULT: #[id number] - [facility] SCREENINGBILATERAL DIGITAL SCREENING MAMMOGRAM WITH CAD: 05/26/2017HISTORY: Screening Mammogram - patient reports NO breast symptoms /priors available for comparison.RESULT:TECHNIQUE: The study was acquired using full field digital technology and interpreted from soft copy.Current study was also evaluated with a Computer Aided Detection (CAD).Comparison is made to exam dated: 05/29/2012 mammogram - [facility].The tissue of both breasts is heterogeneously dense. This may lower the sensitivity of mammography.The parenchymal pattern and appearance of the breasts is unchanged from 2012 given differences in positioning and technique.No significant masses, calcifications, or other findings are seen in either breast.There has been no significant interval change.IMPRESSION: NEGATIVEThere is no mammographic evidence of malignancy.A 1 year screening mammogram is recommended.Carmela Christine/harry:05/26/2017 17:21:26Imaging Technologist: Lizzy RABAGO)(Joseph), [facility] Normal over 40Mammogram BI-RADS: 1 NegativeTranscriptionist: HarryTranscribe Date/Time: May 26 2017 3:48PDictated by: CARMELA BOLIVAR MDThis examination was interpreted and the report reviewed and electronically signed by: CARMELA BOLIVAR MD on May 26 2017 5:21PM [id number] Normal [facility] Vital Signs Date Time Vital Sign Value Performing Clinician Facility 01-22-2025 08:44-0400 Diastolic blood pressure 86 mm[Hg] Dr. Rosita Canas DO Work Phone: [facility] 01-22-2025 08:44-0400 Systolic blood pressure 163 mm[Hg] Dr. Rosita Canas DO Work Phone: [facility] 01-22-2025 08:37-0400 Body height 170.[address] Rosita Canas DO Work Phone: [facility] 01-22-2025 08:37-0400 Body mass index (BMI) [Ratio] 46.8 kg/m2 Dr. Rosita Canas DO Work Phone: [facility] 01-22-2025 08:37-0400 Body weight 135.[address] Rosita Canas DO Work Phone: [facility] 01-22-2025 08:37-0400 Heart rate 62 /min Dr. Rosita Canas DO Work Phone: [facility] 01-22-2025 08:37-0400 Respiratory rate 18 /min Dr. Rosita Canas DO Work Phone: [facility] 07-03-2024 11:25-0500 Diastolic blood pressure 90 mm[Hg] Mickey Thomae DO Work Phone: [facility] 07-03-2024 11:25-0500 Heart rate 72 /min Mickey Thomae DO Work Phone: [facility] 07-03-2024 11:25-0500 Respiratory rate 16 /min Mickey Thomae DO Work Phone: [facility] 07-03-2024 11:25-0500 SaO2% (BldA) [Mass fraction] 100 % Mickey Thomae DO Work Phone: [facility] 07-03-2024 11:25-0500 Systolic blood pressure 149 mm[Hg] Mickey Thomae DO Work Phone: [facility] 07-03-2024 10:39-0500 Body temperature 97.11 [degF] Mickey Thomae DO Work Phone: [facility] 07-03-2024 09:03-0500 Body height 175.3 cm Mickey Thomae DO Work Phone: [facility] 07-03-2024 09:03-0500 Body mass index (BMI) [Ratio] 43.69 kg/m2 Mickey Escobar DO Work Phone: [facility] 07-03-2024 09:03-0500 Body weight 134.26 kg Mickey Escobar DO Work Phone: [facility] 05-31-2023 11:24-0500 Body height 170.[address] Rosita Canas Work Phone: [facility] 05-31-2023 11:14-0500 Body mass index (BMI) [Ratio] 42.6 kg/m2 Dr. Rosita Canas Work Phone: [facility] 05-31-2023 11:14-0500 Body weight 123.[address] Rosita Canas Work Phone: [facility] 05-31-2023 11:14-0500 Diastolic blood pressure 80 mm[Hg] Dr. Rosita Canas Work Phone: [facility] 05-31-2023 11:14-0500 Systolic blood pressure 132 mm[Hg] Dr. Rosita Canas Work Phone: [facility] 03-02-2023 16:01-0400 Body mass index (BMI) [Ratio] 41.3 kg/m2 Dr. Rosita Canas Work Phone: [facility] 03-02-2023 16:01-0400 Body weight 119.[address] Rosita Canas Work Phone: [facility] 03-02-2023 16:01-0400 Diastolic blood pressure 91 mm[Hg] Dr. Rosita Canas Work Phone: [facility] 03-02-2023 16:01-0400 Heart rate 58 /min Dr. Rosita Canas Work Phone: [facility] 03-02-2023 16:01-0400 Respiratory rate 22 /min Dr. Rosita Canas Work Phone: [facility] 03-02-2023 16:01-0400 SaO2% (BldA) [Mass fraction] 94 % Dr. Rosita Canas Work Phone: [facility] 03-02-2023 16:01-0400 Systolic blood pressure 164 mm[Hg] Dr. Rosita Canas Work Phone: [facility] 02-07-2023 07:59-0400 Body height 170.[address] Rosita Canas Work Phone: [facility] 02-07-2023 07:59-0400 Body mass index (BMI) [Ratio] 41.1 kg/m2 Dr. Rosita Canas Work Phone: [facility] 02-07-2023 07:59-0400 Body temperature 96.2 [degF] Dr. Rosita Canas Work Phone: [facility] 02-07-2023 07:59-0400 Body weight 119.[address] Rosita Canas Work Phone: [facility] 02-07-2023 07:59-0400 Diastolic blood pressure 98 mm[Hg] Dr. Rosita Canas Work Phone: [facility] 02-07-2023 07:59-0400 Heart rate 63 /min Dr. Rosita Canas Work Phone: [facility] 02-07-2023 07:59-0400 Respiratory rate 20 /min Dr. Rosita Canas Work Phone: [facility] 02-07-2023 07:59-0400 SaO2% (BldA) [Mass fraction] 98 % Dr. Rosita Canas Work Phone: [facility] 02-07-2023 07:59-0400 Systolic blood pressure 157 mm[Hg] Dr. Rosita Canas Work Phone: [facility] 08-23-2022 17:47-0500 Body height 170.[address] Rosita Canas Work Phone: [facility] 08-23-2022 17:47-0500 Body weight 124.[address] Rosita Canas Work Phone: [facility] 08-16-2022 06:23-0500 Body temperature 97.9 [degF] Dr. Rosita Canas Work Phone: [facility] 08-16-2022 06:23-0500 Diastolic blood pressure 80 mm[Hg] Dr. Rosita Canas Work Phone: [facility] 08-16-2022 06:23-0500 Heart rate 72 /min Dr. Rosita Canas Work Phone: [facility] 08-16-2022 06:23-0500 Respiratory rate 14 /min Dr. Rosita Canas Work Phone: [facility] 08-16-2022 06:23-0500 SaO2% (BldA) [Mass fraction] 98 % Dr. Rosita Canas Work Phone: [facility] 08-16-2022 06:23-0500 Systolic blood pressure 138 mm[Hg] Dr. Rosita Canas Work Phone: [facility] 08-04-2022 16:03-0500 Body mass index (BMI) [Ratio] 44 kg/m2 Dr. Rosita Canas Work Phone: [facility] 08-04-2022 16:03-0500 Body weight 127.[address] Rosita Canas Work Phone: [facility] 08-04-2022 16:03-0500 Diastolic blood pressure 88 mm[Hg] Dr. Rosita Canas Work Phone: [facility] 08-04-2022 16:03-0500 Heart rate 60 /min Dr. Rosita Canas Work Phone: [facility] 08-04-2022 16:03-0500 Respiratory rate 16 /min Dr. Rosita Canas Work Phone: [facility] 08-04-2022 16:03-0500 Systolic blood pressure 132 mm[Hg] Dr. Rosita Canas Work Phone: [facility] 05-26-2022 16:32-0400 Body height 170.[address] Rosita Canas Work Phone: [facility] Work Phone: 05-26-2022 16:32-0400 Body weight 123.[address] Rosita Canas Work Phone: [facility] 05-10-2022 16:37-0400 Body mass index (BMI) [Ratio] 41.2 kg/m2 Dr. Rosita Canas Work Phone: [facility] 05-10-2022 16:37-0400 Body temperature 97.3 [degF] Dr. Rosita Canas Work Phone: [facility] 05-10-2022 16:37-0400 Body weight 126.[address] Rosita Canas Work Phone: [facility] 05-10-2022 16:37-0400 Diastolic blood pressure 82 mm[Hg] Dr. Rosita Canas Work Phone: [facility] 05-10-2022 16:37-0400 Heart rate 82 /min Dr. Rosita Canas Work Phone: [facility] 05-10-2022 16:37-0400 Respiratory rate 16 /min Dr. Rosita Canas Work Phone: [facility] 05-10-2022 16:37-0400 SaO2% (BldA) [Mass fraction] 95 % Dr. Rosita Canas Work Phone: [facility] 05-10-2022 16:37-0400 Systolic blood pressure 130 mm[Hg] Dr. Rosita Canas Work Phone: [facility] 03-10-2022 07:46-0400 Body height 175.[address] Rosita Canas Work Phone: [facility] Work Phone: 03-10-2022 07:46-0400 Body mass index (BMI) [Ratio] 40.7 kg/m2 Dr. Rosita Canas Work Phone: [facility] Work Phone: 03-10-2022 07:46-0400 Body temperature 98.8 [degF] Dr. Rosita Canas Work Phone: [facility] Work Phone: 03-10-2022 07:46-0400 Body weight 125.[address] Rosita Canas Work Phone: [facility] Work Phone: 03-10-2022 07:46-0400 Diastolic blood pressure 90 mm[Hg] Dr. Rosita Canas Work Phone: [facility] Work Phone: 03-10-2022 07:46-0400 Heart rate 71 /min Dr. Rosita Canas Work Phone: [facility] Work Phone: 03-10-2022 07:46-0400 Respiratory rate 16 /min Dr. Rosita Canas Work Phone: [facility] Work Phone: 03-10-2022 07:46-0400 SaO2% (BldA) [Mass fraction] 97 % Dr. Rosita Canas Work Phone: [facility] Work Phone: 03-10-2022 07:46-0400 Systolic blood pressure 155 mm[Hg] Dr. Rosita Canas Work Phone: [facility] Work Phone: 01-20-2022 08:31-0400 Body height 175.[address] Rosita Canas Work Phone: [facility] Work Phone: 01-20-2022 08:30-0400 Body mass index (BMI) [Ratio] 39.5 kg/m2 Dr. Rosita Canas Work Phone: [facility] Work Phone: 01-20-2022 08:30-0400 Body weight 121.[address] Rosita Canas Work Phone: [facility] Work Phone: 01-20-2022 08:30-0400 Diastolic blood pressure 89 mm[Hg] Dr. Rosita Canas Work Phone: [facility] Work Phone: 01-20-2022 08:30-0400 Heart rate 64 /min Dr. Rosita Canas Work Phone: [facility] Work Phone: 01-20-2022 08:30-0400 Respiratory rate 18 /min Dr. Rosita Canas Work Phone: [facility] Work Phone: 01-20-2022 08:30-0400 SaO2% (BldA) [Mass fraction] 100 % Dr. Rosita Canas Work Phone: [facility] Work Phone: 01-20-2022 08:30-0400 Systolic blood pressure 143 mm[Hg] Dr. Rosita Canas Work Phone: [facility] Work Phone: 10-13-2021 08:33-0400 Body height 175.[address] Rosita Canas Work Phone: [facility] Work Phone: 10-13-2021 08:33-0400 Body mass index (BMI) [Ratio] 38 kg/m2 Dr. Rosita Canas Work Phone: [facility] Work Phone: 10-13-2021 08:33-0400 Body weight 117.[address] Rosita Canas Work Phone: [facility] Work Phone: 10-13-2021 08:33-0400 Diastolic blood pressure 86 mm[Hg] Dr. Rosita Cnaas Work Phone: [facility] Work Phone: 10-13-2021 08:33-0400 Heart rate 49 /min Dr. Rosita Canas Work Phone: [facility] Work Phone: 10-13-2021 08:33-0400 Respiratory rate 18 /min Dr. Rosita Canas Work Phone: [facility] Work Phone: 10-13-2021 08:33-0400 SaO2% (BldA) [Mass fraction] 95 % Dr. Rosita Canas Work Phone: [facility] Work Phone: 10-13-2021 08:33-0400 Systolic blood pressure 148 mm[Hg] Dr. Rosita Canas Work Phone: [facility] Work Phone: Encounters Encounter Date Encounter Type Care Provider Facility Start: 02-15-2025 ambulatory Rosita Canas Facility:[facility] Start: 01-22-2025 End: 01-22-2025 Patient encounter procedure Vincenzo BECK -[facility] Work Phone: Start: 01-22-2025 End: 01-22-[address] Rosita Canas DO Work Phone: -[facility] Start: 07-03-2024 End: 07-03-2024 Subsequent hospital visit by physician Mickey Escobar DO Work Phone: [facility] Comment on above: Epigastric pain; Nausea Start: 06-05-2024 End: 06-05-2024 Office outpatient visit 15 minutes Mickey Escobar DO Work Phone: [facility] Comment on above: Epigastric pain (Kierra radha Dx) Start: 05-11-2024 End: 05-11-2024 ambulatory Adan Aquino Facility:[facility] Start: 05-11-2024 End: 05-11-2024 ambulatory Adan Aquino Facility:[facility] Start: 04-09-2024 End: 04-09-2024 ambulatory Rosita Canas Facility:[facility] Start: 04-04-2024 ambulatory Rosita Canas Facility:[facility] Start: 04-04-2024 End: 04-04-2024 ambulatory Mickey Escobar Facility:[facility] Start: 03-30-2024 Encounter for genera l adult medical examination [facility] Start: 03-01-2024 End: 03-01-2024 ambulatory Berta Shi NP [facility] Start: 02-28-2024 End: 02-28-2024 ambulatory Rosita Canas Facility:[facility] Start: 06-22-2023 End: 06-22-[address] Rosita Canas Work Phone: [facility] Work Phone: Start: 06-22-2023 End: 06-22-[address] Rosita Canas Work Phone: [facility]-Outpatient Breast Imaging Work Phone: Start: 06-21-2023 End: 06-21-[address] Rosita Canas Work Phone: [facility] Work Phone: Start: 06-21-2023 End: 06-21-[address] Rosita Canas Work Phone: [facility]-Ultrasound, [facility] Work Phone: Start: 05-31-2023 End: 05-31-[address] Rosita Canas Work Phone: [facility] Work Phone: Start: 05-30-2023 End: 05-30-[address] Rosita Canas Work Phone: [facility] Work Phone: Start: 05-30-2023 End: 05-30-[address] Rosita Canas Work Phone: [facility] Start: 03-02-2023 End: 03-02-[address] Rosita Canas Work Phone: [facility] Work Phone: Start: 02-24-2023 End: 02-24-[address] Rosita Canas Work Phone: [facility] Work Phone: Start: 02-24-2023 End: 02-24-[address] Rosita Canas Work Phone: [facility] Start: 02-18-2023 End: 02-18-[address] Rosita Canas Work Phone: [facility] Work Phone: Start: 02-18-2023 End: 02-18-[address] [facility] Start: 02-07-2023 End: 02-07-[address] Rosita Canas Work Phone: [facility] Work Phone: Start: 11-01-2022 End: 11-01-[address] Rosita Can[facility] Work Phone: Start: 08-23-2022 End: 08-24-[address] Rosita Canas Work Phone: [facility] Work Phone: Start: 08-23-2022 End: 08-24-[address] Rosita Can[facility] Start: 08-16-2022 End: 08-16-[address] Rosita Canas Work Phone: [facility] Start: 08-04-2022 End: 08-04-[address] Rosita Canas Work Phone: [facility] Start: 05-26-2022 End: 06-23-[address] Rosita Canas Work Phone: [facility] Work Phone: Start: 05-26-2022 End: 06-23-[address] Ros[facility] Can[facility] Start: 05-10-2022 End: 05-10-[address] Rosita Canas Work Phone: [facility] Start: 04-23-2022 End: 04-23-[address] Rosita Canas Work Phone: [facility] Ultrasound Start: 04-22-2022 End: 04-22-[address] Rosita Canas Work Phone: [facility] Work Phone: Start: 04-22-2022 End: 04-22-[address] Rosita Canas Work Phone: [facility]Outpatient Breast Imaging Start: 03-10-2022 End: 03-10-[address] Rosita Can[facility] Start: 02-10-2022 End: 02-10-[address] Rosita Canas Work Phone: [facility]Sleep Lab Start: 01-20-2022 End: 01-20-[address] Rosita Canas Work Phone: [facility] Start: 10-29-2021 Non-patient / Non-visit Dr. Leilani Canas Work Phone: [facility] Start: 10-29-2021 End: 10-29-[address] Rosita Can[facility] Start: 10-13-2021 End: 10-13-[address] Rosita Canas Work Phone: [facility] Start: 07-30-2021 End: 07-30-[address] Rosita Can[facility] Start: 03-31-2018 End: 04-03-2018 Patient encounter ROSITA CANAS [facility] Start: 03-14-2018 End: 03-15-2018 Patient encounter ROSITA CANAS [facility] Start: 12-21-2017 End: 12-22-2017 Patient encounter SURESH HART [facility] Start: 12-16-2017 End: 12-20-2017 Patient encounter KENYA BAZZI [facility] Start: 05-26-2017 End: 05-26-2017 Patient encounter ROSITA CANAS [facility] Procedures Date Procedure Procedure Detail Performing Clinician Start: 07-03-2024 Egd transoral biopsy single/multiple Mickey Escobar DO Work Phone: Start: 07-03-2024 PULSE OXIMETRY, SPOT Da sharlene Escobar DO Work Phone: Start: 06-22-2023 Screening mammography D carlos. Rosita Canas Work Phone: Start: 06-21-[address] Amita Canas Work Phone: Start: 05-30-2023 Diagnostic radiograp hy of abdomen Dr. Rosita Canas Work Phone: Start: 02-24-[address] Rosita Canas Work Phone: Start: 11-01-[address] Rosita Canas Work Phone: Start: 04-23-[address] Rosita Canas Work Phone: Start: 04-22-2022 Screening mammography Sal Canas Work Phone: Start: 05-26-2017 Mammography Mickey Aydee e Work Phone: Plan of Treatment Date Care Activity Detail Author Start: 03-25-2024 COVID-19 Vaccine ( season) COVID-19 Vaccine ( season) [facility] Start: 03-25-2024 Influenza vaccination Influenza Vacc ine (#1) [facility] Start: 12-03-2023 DTaP/Tdap/Td Vaccine s (2 - Td or Tdap) DTaP/Tdap/Td Vaccines (2 - Td or Tdap) [facility] Start: 2020 Zoster Vaccines (1 o f 2) Zoster Vaccines (1 of 2) [facility] Start: 05-26-2018 Screening for malign ant neoplasm of breast Mammogram [facility] Start: 1991 Screening for malign ant neoplasm of cervix [facility] Start: 1989 Hepatitis B Vaccines (1 of 3 - 19+ 3-dose series) Hepatitis B Vaccines (1 of 3 - 19+ 3-dose series) [facility] Start: 1988 Diabetes mellitus screening Diabetes Screening [facility] Start: 1988 Hepatitis C screening Hepatitis C Sc reening [facility] Start: 1976 Pneumococcal Vaccine : Pediatrics (0 to 5 Years) and At-Risk Patients (6 to 64 Years) (1 of 2 - PCV) Pneumococcal Vaccine: Pediatrics (0 to 5 Years) and At-Risk Patients (6 to 64 Years) (1 of 2 - PCV) [facility] Start: 1971 MMR Vaccines (1 of 1 - Standard series) MMR Vaccines (1 of 1 - Standard series) [facility] Start: 1970 HIV screening HIV Screening [facility] Start: 1970 Lipid panel Lipid Panel [facility] Start: 1970 Screening for malign ant neoplasm of colon [facility] Start: 1970 Yearly Adult Physical Yearly Adult P hysical [facility] End: 07-03-2024 Glucose [Mass/volume] in Serum or Plasma Glucose Lab Routine Once (Lab) for 1 Occurrences starting 07/03/2024 until 07/03/2024 [facility] Work Phone: Comment on above: Once (Lab) for 1 Occ urrences starting 07/03/2024 until 07/03/2024 MG Breast - bilatera l Screening [facility] End: 07-03-2024 Moderate Sedation Moderate Sedation Procedures Routine Once for 1 Occurrences starting 07/03/2024 until 07/03/2024 [facility] Work Phone: Comment on above: Once for 1 Occurrenc es starting 07/03/2024 until 07/03/2024 End: 07-03-2024 Pulse oximetry, continuous Pulse oximetry, continuous Respiratory Care Routine Continuous until discontinued starting 07/03/2024 [facility] Work Phone: Comment on above: Continuous until dis continued starting 07/03/2024 Surgical pathology study [facility] Work Phone: Comment on above: Release Upon Orderin g for 1 Occurrences starting 07/03/2024 US Pelvis [facility] US Pelvis transvaginal [facility] Immunizations Immunization Date Immunization Notes Care Provider Julian sebastian 12-02-2013 tetanus toxoid, redu jermaine diphtheria toxoid, and acellular pertussis vaccine, adsorbed Dr. Rosita Canas Work Phone: [facility] 04-24-2009 influenza virus vaccine, unspecified formulation Mickey Escobar DO Work Phone: [facility] Work Phone: Payers Date Payer Category Payer Self-pay [id number] 2023 Managed Care (Private) [facility] Member Subscriber Plan / Payer (Effective 2023-Present) Name: Ana Maria Figueredo Relation to Subscriber: Self Name: Ana Maria Figueredo Payer ID: Not on file Type: Not on file Address: [place] [id number] 2023 Unknown [id number] Unknown [id number] Unknown [id number] Unknown [id number] Unknown [id number] Unknown [id number] Unknown [id number] Unknown [id number] Unknown [id number] Unknown [id number] Social History Date Type Detail Facility Start: 10-13-2021 End: 05-31-2023 Tobacco smoking status NHIS Unknown if ever smoked [facility] Start: 08-18-2018 Cigarettes [facility] Start: 1970 Sex Assigned At Female [facility] Start: 03-12-2024 End: 01-22-2025 Tobacco smoking status NHIS Smokes tobacco daily [facility] Work Phone: Start: 03-12-1999 History of tobacco use Cigarette Smoker [facility] Work Phone: Start: 03-12-2024 End: 07-03-2024 Cigarettes smoked current (pack per day) - Reported 0.3 [facility] Work Phone: Start: 03-12-2024 Tobacco use and exposure Smokeless tobacco non-user [facility] Work Phone: Start: 06-05-2024 End: 07-03-2024 Alcoholic beverage intake Current drinker of alcohol (finding) [facility] Work Phone: Start: 03-12-2024 End: 07-03-2024 Tobacco use panel [facility] Work Phone: Start: 03-12-2024 Alcohol Comment Socially, Occasionally [facility] Work Phone: Start: 12-29-2023 Gender identity Identifies as female gender (finding) [facility] Work Phone: Start: 12-29-2023 Sexual orientation Heterosexual (finding) [facility] Work Phone: Start: 05-26-2024 End: 07-03-2024 Exposure to SARS-CoV-2 (event) Not sure [facility] Clinical Notes 06-05-2024 to 07-03-2024 Discharge InstructionsMickey Escobar DO - 07/03/2024 10:00 AM Mike Escobar DO - 07/03/2024 10:00 AM Mike Escobar, - 06/05/2024 2:30 PM EST Note Date & Type Note Facility 07-03-2024 Hospital Discharg e instructions Leilani Villafuerte RN - 07/03/2024 10:54 AM EST Patient Instructions after an endoscopy or colonoscopy The anesthetics, sedatives or narcotics which were given to you today will be acting in your body for the next 24 hours, so you might feel a little sleepy or groggy. This feeling should slowly wear off. Carefully read and follow the instructions. You received sedation today: - Do not drive or operate any machinery or power tools of any kind. - No alcoholic beverages today, not even beer or wine. - Do not make any important decisions or sign any legal documents. - No over the counter medications that contain alcohol or that may cause drowsiness. - Do not make any important decisions or sign any legal documents. While it is common to experience mild to moderate abdominal distention, gas, or belching after your procedure, if any of these symptoms occur following discharge from the GI Lab or within one week of having your procedure, call the [facility] to be advised whether a visit to your nearest Urgent Care or Emergency Department is indicated. Take this paper with you if you go. - If you develop an allergic reaction to the medications that were given during your procedure such as difficulty breathing, rash, hives, severe nausea, vomiting or lightheadedness.- If you experience chest pain, shortness of breath, severe abdominal pain, fevers and chills. -If you develop signs and symptoms of bleeding such as blood in your spit, if your stools turn black, tarry, or bloody - If you have not urinated within 8 hours following your procedure.- If your IV site becomes painful, red, inflamed, or looks infected. documented in this encounter [facility] Work Phone: 07-03-2024 History and physical note History Of Present Illness Ana Maria Figueredo is a 54 y.o. female presenting with longstanding GERD presents for diagnostic EGD because of intractable symptoms. Past Medical History Past Medical History: Diagnosis Date Anxiety Essential hypertension History of atrial fibrillation Obesity Obstructive sleep apnea Tobacco dependency Venous insufficiency Surgical History Past Surgical History: Procedure Laterality Date CHOLECYSTECTOMY ECTOPIC SURGERY Fallopian tube removal ORIF WRIST FRACTURE Right PARTIAL HYSTERECTOMY TONSILECTOMY, ADENOIDECTOMY, BILATERAL MYRINGOTOMY AND TUBES Social History She reports that she has been smoking cigarettes. She started smoking about 25 years ago. She has a 6.3 pack-year smoking history. She has never used smokeless tobacco. She reports current alcohol use. She reports that she does not use drugs. Family History Family History Problem Relation Name Age of Onset Rheum arthritis Mother Autoimmune disease Mother Diverticulitis Mother Heart disease Mother Kidney cancer Mother Ovarian cancer Mother Diabetes type II Mother Adjustment Disorder with Mixed Anxiety and Depressed Mood Father Allergies No Known Allergies Review of Systems Pre-sedation Evaluation: ASA Classification - ASA 2 - Patient with mild systemic disease with no functional limitations Mallampati Score - II (hard and soft palate, upper portion of tonsils and uvula visible) Physical Exam Vitals and nursing note reviewed. Constitutional: Appearance: Normal appearance. HENT: Head: Normocephalic. Mouth/Throat: Mouth: Mucous membranes are moist. Pharynx: Oropharynx is clear. Eyes: Conjunctiva/sclera: Conjunctivae normal. Pupils: Pupils are equal, round, and reactive to light. Cardiovascular: Rate and Rhythm: Normal rate and regular rhythm. Heart sounds: Normal heart sounds. Pulmonary: Effort: Pulmonary effort is normal. Breath sounds: Normal breath sounds. Abdominal: General: Abdomen is flat. Bowel sounds are normal. Palpations: Abdomen is soft. Musculoskeletal: Cervical back: Normal range of motion and neck supple. Skin: General: Skin is warm and dry. Neurological: General: No focal deficit present. Mental Status: She is alert and oriented to person, place, and time. Psychiatric: Behavior: Behavior normal. Last Recorded Vitals Blood pressure (!) 172/104, pulse 85, temperature 36.4 C (97.5 F), temperature source Temporal, resp. rate 16, height 1.753 m (5' 9.02), weight 134 kg (296 lb), SpO2 97%. 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 clonazePAM (KlonoPIN) 0.5 mg tablet Take 1 tablet (0.5 mg) by mouth once daily. (Patient taking differently: Take 1 tablet (0.5 mg) by mouth if needed.) ibuprofen 200 mg tablet Take 1 tablet (200 mg) by mouth every 6 hours. metoprolol tartrate (Lopressor) 50 mg tablet Take 1 tablet by mouth 2 times a day. omeprazole (PriLOSEC) [address] capsule Take 1 capsule (40 mg) by mouth 2 times a day before meals. Do not crush or chew. 180 capsule 3 potassium chloride ER (Micro-K) 10 mEq ER capsule Take 1 capsule (10 mEq) by mouth once daily. Eliquis 5 mg tablet Take 1 tablet (5 mg) by mouth every 12 hours. furosemide (Lasix) 20 mg tablet Take 2 tablets (40 mg) by mouth once daily. (Patient not taking: Reported on 07/03/2024) No current facility-administered medications for this encounter. Mickey Escobar DO [facility] Work Phone: 07-03-2024 History and physical note History Of Present Illness Ana Maria Figueredo is a 54 y.o. female presenting with longstanding GERD presents for diagnostic EGD because of intractable symptoms. Past Medical History Past Medical History: Diagnosis Date Anxiety Essential hypertension History of atrial fibrillation Obesity Obstructive sleep apnea Tobacco dependency Venous insufficiency Surgical History Past Surgical History: Procedure Laterality Date CHOLECYSTECTOMY ECTOPIC SURGERY Fallopian tube removal ORIF WRIST FRACTURE Right PARTIAL HYSTERECTOMY TONSILECTOMY, ADENOIDECTOMY, BILATERAL MYRINGOTOMY AND TUBES Social History She reports that she has been smoking cigarettes. She started smoking about 25 years ago. She has a 6.3 pack-year smoking history. She has never used smokeless tobacco. She reports current alcohol use. She reports that she does not use drugs. Family History Family History Problem Relation Name Age of Onset Rheum arthritis Mother Autoimmune disease Mother Diverticulitis Mother Heart disease Mother Kidney cancer Mother Ovarian cancer Mother Diabetes type II Mother Adjustment Disorder with Mixed Anxiety and Depressed Mood Father Allergies No Known Allergies Review of Systems Pre-sedation Evaluation: ASA Classification - ASA 2 - Patient with mild systemic disease with no functional limitations Mallampati Score - II (hard and soft palate, upper portion of tonsils and uvula visible) Physical Exam Vitals and nursing note reviewed. Constitutional: Appearance: Normal appearance. HENT: Head: Normocephalic. Mouth/Throat: Mouth: Mucous membranes are moist. Pharynx: Oropharynx is clear. Eyes: Conjunctiva/sclera: Conjunctivae normal. Pupils: Pupils are equal, round, and reactive to light. Cardiovascular: Rate and Rhythm: Normal rate and regular rhythm. Heart sounds: Normal heart sounds. Pulmonary: Effort: Pulmonary effort is normal. Breath sounds: Normal breath sounds. Abdominal: General: Abdomen is flat. Bowel sounds are normal. Palpations: Abdomen is soft. Musculoskeletal: Cervical back: Normal range of motion and neck supple. Skin: General: Skin is warm and dry. Neurological: General: No focal deficit present. Mental Status: She is alert and oriented to person, place, and time. Psychiatric: Behavior: Behavior normal. Last Recorded Vitals Blood pressure (!) 172/104, pulse 85, temperature 36.4 C (97.5 F), temperature source Temporal, resp. rate 16, height 1.753 m (5' 9.02), weight 134 kg (296 lb), SpO2 97%. 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 clonazePAM (KlonoPIN) 0.5 mg tablet Take 1 tablet (0.5 mg) by mouth once daily. (Patient taking differently: Take 1 tablet (0.5 mg) by mouth if needed.) ibuprofen 200 mg tablet Take 1 tablet (200 mg) by mouth every 6 hours. metoprolol tartrate (Lopressor) 50 mg tablet Take 1 tablet by mouth 2 times a day. omeprazole (PriLOSEC) [address] capsule Take 1 capsule (40 mg) by mouth 2 times a day before meals. Do not crush or chew. 180 capsule 3 potassium chloride ER (Micro-K) 10 mEq ER capsule Take 1 capsule (10 mEq) by mouth once daily. Eliquis 5 mg tablet Take 1 tablet (5 mg) by mouth every 12 hours. furosemide (Lasix) 20 mg tablet Take 2 tablets (40 mg) by mouth once daily. (Patient not taking: Reported on 07/03/2024) No current facility-administered medications for this encounter. Mickey Escobar DO documented in this encounter [facility] Work Phone: 06-05-2024 History of Presen t illness Narrative Subjective Patient ID: Ana Maria Figueredo is a 54 y.o. female who presents for Follow-up (Patient had mesenteric us at [facility] in March. States she is still having all the issues spoken about at her previous visit. Pt reports that she feels as if she has all the symptoms of H.pylori but one. ). CARMENCITA Valdivia is seen today in follow-up. Underwent mesenteric vascular ultrasound showing normal celiac and SMA flow. Symptoms are worse on Protonix felt better on omeprazole. Did undergo gastric emptying study ordered through her family doctor which was normal. She denies any new symptomatology. After reading an article about H. pylori she believes she has all of the symptoms. I agree with her. Review of Systems Constitutional: Negative. HENT: Negative. Eyes: Negative. Respiratory: Negative. Cardiovascular: Negative. Gastrointestinal: Positive for abdominal pain and nausea. Endocrine: Negative. Genitourinary: Negative. Neurological: Negative. Hematological: Negative. Objective Physical Exam Vitals and nursing note reviewed. Constitutional: Appearance: Normal appearance. HENT: Head: Normocephalic. Mouth/Throat: Mouth: Mucous membranes are moist. Pharynx: Oropharynx is clear. Eyes: Conjunctiva/sclera: Conjunctivae normal. Pupils: Pupils are equal, round, and reactive to light. Cardiovascular: Rate and Rhythm: Normal rate and regular rhythm. Heart sounds: Normal heart sounds. Pulmonary: Effort: Pulmonary effort is normal. Breath sounds: Normal breath sounds. Abdominal: General: Abdomen is flat. Bowel sounds are normal. Palpations: Abdomen is soft. Musculoskeletal: Cervical back: Normal range of motion and neck supple. Skin: General: Skin is warm and dry. Neurological: General: No focal deficit present. Mental Status: She is alert and oriented to person, place, and time. Psychiatric: Behavior: Behavior normal. Assessment/Plan Diagnoses and all orders for this visit: Epigastric pain - omeprazole (PriLOSEC) [address] capsule; Take 1 capsule (40 mg) by mouth 2 times a day before meals. Do not crush or chew. Discontinue Protonix resume omeprazole 40 mg twice daily arrange upper GI endoscopy follow-up by telephone after same Mickey Escobar DO 06/05/24 3:15 PM documented in this encounter [facility] Work Phone: Evaluation note Diagnosis Onset Date ROBERTSON (dyspnea on exertion) ac nissa Essential hypertension acute Persistent atrial fibrillation acute [facility] Work Phone: evaluation note* Diagnosis Onset Date Resolution Status Essential hypertension acute Hypersomnolence acute Persistent atrial fibrillation acute [facility] Work Phone: Evaluation note* Diagnosis Onset Date Resolution Status Essential hypertension acute Hypersomnolence acute Persistent atrial fibrillation acute Obesity acute RAF (obstructive sleep apnea) acute [facility] Work Phone: Evaluation note* Diagnosis Onset Date Resolution Status Obesity acute RAF (obstructive sleep apnea) acute COVID-19 acute [facility] Work Phone: Evaluation note* Diagnosis Onset Date Resolution Status COVID-19 acute Essential hypertension acute Persistent atrial fibrillation acute Acute maxillary sinusitis, unspecified acute Contact with and (suspected) exposure to other viral communicable diseases acute [facility] Work Phone: Evaluation note* Diagnosis Onset Date Resolution Status Obesity chronic RAF (obstructive sleep apnea) chronic [facility] Work Phone: evaluation note* Diagnosis Onset Date Resolution Status Obesity chronic RAF (obstructive sleep apnea) chronic Essential hypertension chron ic Paroxysmal atrial fibrillation chronic Pelvic pain acute [facility] Work Phone: Evaluation note* Diagnosis Onset Date Resolution Status Essential hypertension chron ic Paroxysmal atrial fibrillation chronic Pelvic pain acute [facility] Work Phone: Evaluation note* Diagnosis Epigastric pain- Primary Abdominal pain, epigastric documented in this encounter [facility] Work Phone: Evaluation note* Diagnosis Epigastric pain Abdominal pain, epigastric Nausea Nausea alone documented in this encounter [facility] Work Phone: Evaluation note* Diagnosis Onset Date Resolution Status Admit Date Essential hypertension chronic Ju 2024 8:08am RAF (obstructive sleep apnea) chroni c January 22, 2025 8:08am Paroxysmal atrial fibrillation chron ic January 22, 2025 8:08am [facility] Work Phone: Reason for referral (narrative)No reason for referral information available[facility] Work Phone: Reason for visit Narrative* Auth/Cert (Routine) Specialty Diagnoses / Procedures Referred By Leslie t Referred To Contact Diagnoses Epigastric pain Nausea Procedures [place] ESOPHAGOGASTRODUODENOSCOPY TRANSORAL DIAGNOSTIC [place] EGD TRANSORAL BIOPSY SINGLE/MULTIPLE [address] [address] Phone: tel: [phone] fax: Referral ID Status Reason Start Date Expiration Date Visits Re quested Visits Authorized [id number] 1 1 [facility] Work Phone: Summary Purpose Family History No Family History Records Found Relationship Condition Age at Onset Recorded Date/T syed mother Asthma Unknown Malignant neoplasm of breast Unknown Malignant neoplasm Unknown Diabetes mellitus Unknown Cardiac disease Unknown Hypertension Unknown Kidney disorder Unknown Advance Directives No Advanced Directives Records Found Advance Directive Response Recorded Date/ Time Living Will No February 06, 2021 9:35am Power of Mig Welder No February 06 9:35am Advance Directive Response Recorded Date/ Time Living Will No February 06, 2021 8:35am Power of Mig Welder No February 06 8:35am Advance Directive Response Recorded Date/ Time Living Will No August 16 6:11am Power of Mig Welder No August 16, 2022 6:11am Advance Directive Response Recorded Date/ Time Living Will No August 16 7:11am Power of Mig Welder No August 16, 2022 7:11am Chief Complaint and Reason for Visit Chief Complaint palpitations, atrial fibrillation 3 M FU DYSPNEA DYSPNEA Reason for Visit ROBERTSON (dyspnea on exer tion) Essential hypertension Persistent atrial fibrillation Chief Complaint DYSPNEA DYSPNEA 3 M FU HYPERSOMNIA Reason for Visit Essential hypertensi on Hypersomnolence Persistent atrial fibrillation Chief Complaint 3 M FU HYPERSOMNIA Sleep problems SCREENING LT BREAST ABN MAMM *COMING AT 1530* Reason for Visit Essential hypertensi on Hypersomnolence Persistent atrial fibrillation Obesity RAF (obstructive sleep apnea) Chief Complaint Sleep problems SCREENING LT BREAST ABN MAMM *COMING AT 1530* FKU SYMPTOMS/COVID TEST OBESITY Reason for Visit Obesity RAF (obstructive sleep apnea) COVID-19 Chief Complaint FKU SYMPTOMS/COVID T EST OBESITY 1 Y FU (4:00 TIME) SORE THROAT OBESITY Reason for Visit COVID-19 Essential hypertension Persistent atrial fibrillation Acute maxillary sinusitis, unspecified Contact with and (suspected) exposure to other viral communicable diseases Chief Complaint PAP insurance purpos e f/up Reason for Visit Obesity RAF (obstructive sleep apnea) Chief Complaint PAP insurance purpos e f/up 6 M FU Lower abdominal pain, unspecified pelvic pains Reason for Visit Obesity RAF (obstructive sleep apnea) Essential hypertension Paroxysmal atrial fibrillation Pelvic pain Chief Complaint 6 M FU Lower abdominal pain, unspecified pelvic pains PELVIC PAIN SCREENING Reason for Visit Essential hypertensi on Paroxysmal atrial fibrillation Pelvic pain Chief Complaint Admit Date OVERDUE FU PPM January 22, 2025 8:08a m Reason for Visit Admit Date Essential hypertension January 22, 2025 8: 08am RAF (obstructive sleep apnea) January 22, 2025 8:08am Paroxysmal atrial fibrillation January 22, 2025 8:08am Additional Source Comments INFORMATION SOURCE (unrecogn ized section and content) DATE CREATED AUTHOR 04/16/2018 [facility] DATE CREATED AUTHOR AUTHOR'S ORGANIZ ATION 02/16/2025 [facility] y [facility] Goals (unrecognized section and content) Goals may be documented in a n alternate sectionGoals may be documented in an alternate sectionGoals may be documented in an alternate sectionGoals may be documented in an alternate sectionGoals may be documented in an alternate sectionGoals may be documented in an alternate sectionGoals may be documented in an alternate sectionGoals may be documented in an alternate sectionGoals may be documented in an alternate sectionGoals may be documented in an alternate sectionGoals may be documented in an alternate section Care Teams (unrecognized sec tion and content) Team Status: Active Member Role Status Dates Dr. Rosita Canas DO Family Provider Active Dr. Rosita Canas DO Primary Care Provider Active Team Status: Inactive Member Role Status Dates Dr. Rosita Canas DO Primary Care Provider, Referring P rovider Active Dr. iVkram Hernandez MD Attending Provider Active Team Status: Inactive Member Role Status Dates Dr. Rosita Canas DO Primary Care Provider, Referring P rovider Active Adan Aquino PA, PA Attending Provider Active Team Status: Inactive Member Role Status Dates Dr. Rosita Canas DO Primary Care Provider Active Dr. Ernestina Schmid MD Attending Provider, Referring P rovider Active Team Status: Inactive Member Role Status Dates Dr. Rosita Canas DO Primary Care Provider, Referring P rovider Active Berta Shi CNC MAINTENANCE TECHNICIAN, CNC MAINTENANCE TECHNICIAN-C Attending Provider Active Team Status: Inactive Member Role Status Dates Dr. Rosita Canas DO Primary Care Provider, Attending P rovider Active Team Status: Inactive Member Role Status Dates Dr. Rosita Canas DO Primary Care Provide r, Attending Provider, Referring Provider Active Team Status: Inactive Member Role Status Dates Dr. Rosita Canas DO Primary Care Provider, Referring P rovider Active Vincenzo Ray CNC MAINTENANCE TECHNICIAN, CNC MAINTENANCE TECHNICIAN-C Attending Provider Active Team Status: Inactive Member Role Status Dates Dr. Rosita Canas DO Primary Care Provider, Referring P rovider Active Camryn Chaidez CNC MAINTENANCE TECHNICIAN, CNC MAINTENANCE TECHNICIAN-C Attending Provider Active Team Status: Inactive Member Role Status Dates Stacy Mancera NP-C Primary Care Provide r, Attending Provider, Referring Provider Active Team Status: Inactive Member Role Status Dates Dr. Rosita Canas DO Primary Care Provider Active Camryn Chaidez CNC MAINTENANCE TECHNICIAN, CNC MAINTENANCE TECHNICIAN-C Attending Provider, Referring Provider Active Team Status: Active Member Role Status Dates Dr. Rosita Canas DO Primary Care Provider Active Camryn Chaidez CNC MAINTENANCE TECHNICIAN, CNC MAINTENANCE TECHNICIAN-C Attending Provider, Referring Provider Active Clinical Project Manager Relationship Specialty Start Date End Date Rosita Canas DO [address] [facility] [place] [id number] PCP - General Family Medicine 12/23/23 Mickey Escobar DO [address] [facility], [place] [id number] PCP - MMO ACO PCP 03/25/24 Clinical Project Manager Relationship Specialty Start Date End Date Rosita Canas DO [address] [place] [id number] PCP - General Family Medicine 12/23/23 Mickey Escobar DO [address] [facility], [address] [address] PCP - MMO ACO PCP 03/25/24 Team Status: Active Member Role/Relationship Status Dates Dr. Rosita Canas DO Family Provider Active Dr. Rosita Canas DO Primary Care Provider Active Team Status: Inactive Member Role/Relationship Status Dates Dr. Rosita Canas DO Primary Care Provider Active Start: January 22, 2025 End: January 22, 2025 Dr. Rosita Canas DO Referring Provider Active St art: January 22, 2025 End: January 22, 2025 Vincenzo Ray CNC MAINTENANCE TECHNICIAN, CNC MAINTENANCE TECHNICIAN-C Attending Provider Active S tart: January 22, 2025 End: January 22, 2025 Reason for Visit (unrecogniz ed section and content) Reason Comments Follow-up Patient had mesenter ic [facility] at [facility] in March. States she is still having all the issues spoken about at her previous visit. Pt reports that she feels as if she has all the symptoms of H.pylori but one. FOR RECORDS PERTAINING TO PATIENTS WHO ARE OR HAVE BEEN ENROLLED IN A CHEMICAL DEPENDENCY/SUBSTANCEABUSE PROGRAM, SOME INFORMATION MAY BE OMITTED. This clinical summary was aggregated from multiple sources. Caution should be exercised in using it in the provision of clinical care. This summary normalizes information from multiple sources, and as a consequence, information in this document may materially change the coding, format and clinical context of patient data. In addition, data may be omitted in some cases. CLINICAL DECISIONS SHOULD BE BASED ON THE PRIMARY CLINICAL RECORDS. [facility] provides no warranty or guarantee of the accuracy or completeness of information in this document.
[2025-02-19 08:42] LABS: Hematocrit 39.5 % (37-47); Hemoglobin 12.5 g/dL (12.0-15.0); Immature Granulocytes Count 0.040 X10^3/uL (0.0-0.0); Mean Corp Hgb Conc 31.6 g/dL (32-36); Mean Corpuscular Volume 89.2 fL (81-99); Mean Platelet Vol. 10.4 fl (6.2-12.0); NRBC Flagged by Analyzer 0 % (0-5); Platelet Count 317 K/mm3 (150-450); RBC Distribution Width CV 14.6 % (11.6-14.6); RBC Distribution Width SD 47.9 fl (35.1-43.9); Red Blood Count 4.43 M/mm3 (4.2-5.4); White Blood Count 8.5 K/mm3 (4.4-11.0)
[2025-02-19 09:50] LABS: AST(SGOT) 20 U/L (<=31); Alanine Aminotransfer ALT/SGPT 33 U/L (<=34); Albumin, Serum 3.8 g/dL (3.5-5.0); Alkaline Phosphatase 97 U/L (35-104); Anion Gap 10 (5-15); BUN 21 mg/dL (4-19); BUN/Creat Ratio 25.0 RATIO (10-20); Calcium,Total 9.5 mg/dL (7.6-11.0); Carbon Dioxide 22.9 mmol/L (21.0-32.0); Chloride 108 mmol/L (98-108); Free T3 3.5 pg/mL (2.18-3.98); Globulin 2.7 g/dL (2.2-4.2); Glucose 99 mg/dL (70-99); Potassium 4.3 mmol/L (3.3-5.1)
[2025-02-19 10:06] LABS: Cholesterol 203 mg/dL (<=200); Low Density Lipoprotein Calc. 117 mg/dL; Triglycerides 121 mg/dL; Very Low Density Lipoprotein 24 mg/dL (5-40); cholesterol:hdl ratio screen 3.28
== END | disposition home or self-care (01) ==
PROVIDERS: PCP Family Medicine; Referring Provider Family Medicine; Visit Provider Family Medicine
DX: Z00.00 Encounter for general adult medical examination without abnormal findings (principal); I10 Essential (primary) hypertension; E03.9 Hypothyroidism, unspecified; Z13.220 Encounter for screening for lipoid disorders; Z13.1 Encounter for screening for diabetes mellitus; Z51.81 Encounter for therapeutic drug level monitoring
CPT/HCPCS: 36415; 80053; 80061; 84439; 84443; 84481; 85025; 86376; 86800